=== PATIENT | female | born 1955 | race Caucasian/White ===

== ENCOUNTER → 2017-06-14 07:00 | Outpatient (REF) | payer MEDICARE, MEDICAID, SELFPAY ==
[2017-06-14 10:25] LABS: Anion Gap 10 (5-15); BUN 38 mg/dL (7-18); BUN/Creat Ratio 32.5 RATIO (10-20); Calcium,Total 8.7 mg/dL (8.5-10.1); Chloride 108 mmol/L (98-107); Creatinine, Serum 1.17 mg/dL (0.55-1.02); EST Glomerular Filtration Rate 50 mL/min (>60); Est Glom Filt Rate - Afr Amer 60 mL/min (>60); Glucose 113 mg/dL (70-110); Potassium 4.3 mmol/L (3.5-5.1); Sodium Level 141 mmol/L (136-145)
== END ==
LOC: OLS.WHLEAS 07:00
PROVIDERS: Visit Provider Internal Medicine Cardiovascular Disease
DX: I50.9 Heart failure, unspecified (principal); E11.9 Type 2 diabetes mellitus without complications; I10 Essential (primary) hypertension
CPT/HCPCS: 36415; 80048

== ENCOUNTER → 2017-07-20 05:00 | Outpatient (REF) | payer MEDICAID, SELFPAY ==
[2017-07-20 11:42] LABS: Anion Gap 9 (5-15); BUN 31 mg/dL (7-18); BUN/Creat Ratio 26.1 RATIO (10-20); Calcium,Total 8.8 mg/dL (8.5-10.1); Chloride 107 mmol/L (98-107); Creatinine, Serum 1.19 mg/dL (0.55-1.02); EST Glomerular Filtration Rate 49 mL/min (>60); Est Glom Filt Rate - Afr Amer 59 mL/min (>60); Glucose 128 mg/dL (70-110); Potassium 4.6 mmol/L (3.5-5.1); Sodium Level 141 mmol/L (136-145)
== END ==
LOC: OLS.WHLEAS 05:00
PROVIDERS: Visit Provider Internal Medicine Cardiovascular Disease
DX: E11.9 Type 2 diabetes mellitus without complications (principal); I67.9 Cerebrovascular disease, unspecified
CPT/HCPCS: 36415; 80048

== ENCOUNTER → 2017-09-15 05:00 | Outpatient (REF) | payer MEDICAID, SELFPAY ==
[2017-09-15 08:57] LABS: Absolute Lymphocyte Count 2.78 X10^3/ul (0.83-4.51); Absolute Neutrophil Count 7.8 X10^3/uL (2.0-7.7); Basophil# 0.05 X10^3/uL; Basophil% 0.4 % (0-1); Eosinophil# 0.65 X10^3/uL; Eosinophils% 5.4 % (0-5); Hematocrit 43.7 % (37-47); Hemoglobin 13.9 g/dl (12.0-15.0); Lymphocyte # 2.78 X10^3/ul (4.0); Lymphocyte % 23.1 % (19-41); Mean Corp Hgb Conc 31.8 g/gl (32-36); Mean Corpuscular Hgb 29.5 pg (27.0-32.0); Mean Corpuscular Volume 92.8 fL (81-99); Mean Platelet Vol. 10.3 fl (6.2-12.0); Monocyte# 0.69 X10^3/uL; Monocyte% 5.7 % (0-10); Neutrophil # 7.83 X10^3/uL (2.7-7.7); Neutrophil % 65.2 % (47-70); Platelet Count 354 K/mm3 (150-450); RBC Distribution Width CV 14.9 % (11.6-14.6); RBC Distribution Width SD 49.3 fl (35.1-43.9); Red Blood Count 4.71 M/mm3 (4.2-5.4)
[2017-09-15 09:01] LABS: POSITIVE COUNT NO; POSITIVE DIFFERENTIAL NO; POSITIVE MORPHOLOGY NO
[2017-09-15 09:08] LABS: ALB/GLOB Ratio 0.6 RATIO (0.9-2.4); AST(SGOT) 16 U/L (15-37); Alanine Aminotransfer ALT/SGPT 24 U/L (13-56); Albumin, Serum 2.8 g/dL (3.2-5.0); Alkaline Phosphatase 78 U/L (45-117); Anion Gap 10 (5-15); BUN 30 mg/dL (7-18); BUN/Creat Ratio 24.2 RATIO (10-20); Calcium,Total 9.1 mg/dL (8.5-10.1); Chloride 106 mmol/L (98-107); Creatinine, Serum 1.24 mg/dL (0.55-1.02); EST Glomerular Filtration Rate 47 mL/min (>60); Est Glom Filt Rate - Afr Amer 56 mL/min (>60); Globulin 4.8 g/dL (2.2-4.2); Glucose 192 mg/dL (74-106); Potassium 4.3 mmol/L (3.5-5.1); Protein, Total 7.6 g/dL (6.4-8.2); Sodium Level 141 mmol/L (136-145)
[2017-09-15 09:12] LABS: Hemoglobin A1c 7.7 % (4.2-6.3)
== END ==
LOC: OLS.WHLEAS 05:00
PROVIDERS: Visit Provider Family Medicine
DX: D64.9 Anemia, unspecified (principal); I11.0 Hypertensive heart disease with heart failure; I50.9 Heart failure, unspecified; E11.9 Type 2 diabetes mellitus without complications
CPT/HCPCS: 36415; 80053; 83036; 85025

== ENCOUNTER → 2017-10-15 05:00 | Outpatient (REF) | payer MEDICAID, SELFPAY ==
[2017-10-15 09:45] LABS: Anion Gap 8 (5-15); BUN 31 mg/dL (7-18); BUN/Creat Ratio 25.4 RATIO (10-20); Chloride 107 mmol/L (98-107); Creatinine, Serum 1.22 mg/dL (0.55-1.02); EST Glomerular Filtration Rate 48 mL/min (>60); Est Glom Filt Rate - Afr Amer 58 mL/min (>60); Glucose 94 mg/dL (74-106); Potassium 4.5 mmol/L (3.5-5.1); Sodium Level 142 mmol/L (136-145); Thyroid Stim Hormone (TSH) 3.84 uIU/mL (0.358-3.74)
== END ==
LOC: OLS.WHLEAS 05:00
PROVIDERS: Visit Provider Family Medicine
DX: I11.0 Hypertensive heart disease with heart failure (principal); I50.9 Heart failure, unspecified; E11.9 Type 2 diabetes mellitus without complications
CPT/HCPCS: 36415; 80048; 84443

== ENCOUNTER → 2017-11-08 07:25 | Outpatient (REF) | payer MEDICAID, SELFPAY ==
[2017-11-08 08:39] LABS: Anion Gap 8 (5-15); BUN 59 mg/dL (7-18); BUN/Creat Ratio 38.1 RATIO (10-20); Calcium,Total 9.2 mg/dL (8.5-10.1); Chloride 110 mmol/L (98-107); Creatinine, Serum 1.55 mg/dL (0.55-1.02); EST Glomerular Filtration Rate 36 mL/min (>60); Est Glom Filt Rate - Afr Amer 44 mL/min (>60); Glucose 198 mg/dL (74-106); Potassium 5.7 mmol/L (3.5-5.1); Sodium Level 137 mmol/L (136-145)
== END ==
LOC: OLS.WHLEAS 07:25
PROVIDERS: Visit Provider Internal Medicine Cardiovascular Disease
DX: I50.9 Heart failure, unspecified (principal)
CPT/HCPCS: 36415; 80048

== ENCOUNTER → 2017-11-10 05:00 | Outpatient (REF) | payer MEDICAID, SELFPAY ==
[2017-11-10 08:45] LABS: Anion Gap 9 (5-15); BUN 67 mg/dL (7-18); BUN/Creat Ratio 41.1 RATIO (10-20); Calcium,Total 8.8 mg/dL (8.5-10.1); Chloride 109 mmol/L (98-107); Creatinine, Serum 1.63 mg/dL (0.55-1.02); EST Glomerular Filtration Rate 34 mL/min (>60); Est Glom Filt Rate - Afr Amer 41 mL/min (>60); Glucose 201 mg/dL (74-106); Potassium 5.5 mmol/L (3.5-5.1); Sodium Level 137 mmol/L (136-145)
== END ==
LOC: OLS.WHLEAS 05:00
PROVIDERS: Visit Provider Internal Medicine Cardiovascular Disease
DX: I50.9 Heart failure, unspecified (principal)
CPT/HCPCS: 36415; 80048

== ENCOUNTER → 2017-11-12 05:00 | Outpatient (REF) | payer MEDICAID, SELFPAY ==
[2017-11-12 07:53] LABS: Anion Gap 6 (5-15); BUN 66 mg/dL (7-18); BUN/Creat Ratio 45.8 RATIO (10-20); Calcium,Total 8.9 mg/dL (8.5-10.1); Chloride 113 mmol/L (98-107); Creatinine, Serum 1.44 mg/dL (0.55-1.02); EST Glomerular Filtration Rate 39 mL/min (>60); Est Glom Filt Rate - Afr Amer 48 mL/min (>60); Glucose 159 mg/dL (74-106); Potassium 5.9 mmol/L (3.5-5.1); Sodium Level 139 mmol/L (136-145)
== END ==
LOC: OLS.WHLEAS 05:00
PROVIDERS: Visit Provider Family Medicine
DX: I10 Essential (primary) hypertension (principal); E78.5 Hyperlipidemia, unspecified; E11.9 Type 2 diabetes mellitus without complications
CPT/HCPCS: 36415; 80048

== ENCOUNTER → 2017-11-15 05:00 | Outpatient (REF) | payer MEDICAID, SELFPAY ==
[2017-11-15 08:08] LABS: Anion Gap 8 (5-15); BUN 44 mg/dL (7-18); BUN/Creat Ratio 36.4 RATIO (10-20); Chloride 112 mmol/L (98-107); Creatinine, Serum 1.21 mg/dL (0.55-1.02); EST Glomerular Filtration Rate 48 mL/min (>60); Est Glom Filt Rate - Afr Amer 58 mL/min (>60); Glucose 156 mg/dL (74-106); Potassium 4.9 mmol/L (3.5-5.1); Sodium Level 141 mmol/L (136-145)
== END ==
LOC: OLS.WHLEAS 05:00
PROVIDERS: Visit Provider Family Medicine
DX: I10 Essential (primary) hypertension (principal); E11.9 Type 2 diabetes mellitus without complications; E78.5 Hyperlipidemia, unspecified
CPT/HCPCS: 36415; 80048

== ENCOUNTER → 2017-11-22 05:00 | Outpatient (REF) | payer MEDICAID, SELFPAY ==
[2017-11-22 09:39] LABS: Anion Gap 9 (5-15); BUN 35 mg/dL (7-18); BUN/Creat Ratio 25.5 RATIO (10-20); Calcium,Total 8.4 mg/dL (8.5-10.1); Chloride 112 mmol/L (98-107); Creatinine, Serum 1.37 mg/dL (0.55-1.02); EST Glomerular Filtration Rate 42 mL/min (>60); Est Glom Filt Rate - Afr Amer 50 mL/min (>60); Glucose 247 mg/dL (74-106); Potassium 4.7 mmol/L (3.5-5.1); Sodium Level 140 mmol/L (136-145)
== END ==
LOC: OLS.WHLEAS 05:00
PROVIDERS: Visit Provider Internal Medicine Cardiovascular Disease
DX: I10 Essential (primary) hypertension (principal); E78.5 Hyperlipidemia, unspecified; E11.9 Type 2 diabetes mellitus without complications; E66.01 Morbid (severe) obesity due to excess calories
CPT/HCPCS: 36415; 80048

== ENCOUNTER → 2017-11-29 05:00 | Outpatient (REF) | payer MEDICAID, SELFPAY ==
[2017-11-29 09:56] LABS: Anion Gap 10 (5-15); BUN 32 mg/dL (7-18); BUN/Creat Ratio 28.3 RATIO (10-20); Calcium,Total 8.4 mg/dL (8.5-10.1); Chloride 108 mmol/L (98-107); Creatinine, Serum 1.13 mg/dL (0.55-1.02); EST Glomerular Filtration Rate 52 mL/min (>60); Est Glom Filt Rate - Afr Amer 63 mL/min (>60); Glucose 144 mg/dL (74-106); Potassium 4.3 mmol/L (3.5-5.1); Sodium Level 140 mmol/L (136-145)
== END ==
LOC: OLS.WHLEAS 05:00
PROVIDERS: Visit Provider Internal Medicine Cardiovascular Disease
DX: I11.0 Hypertensive heart disease with heart failure (principal); I50.9 Heart failure, unspecified; E87.5 Hyperkalemia
CPT/HCPCS: 36415; 80048

== ENCOUNTER → 2017-12-17 05:15 | Outpatient (REF) | payer MEDICAID, SELFPAY ==
[2017-12-20 08:54] LABS: Anion Gap 9 (5-15); BUN 29 mg/dL (7-18); BUN/Creat Ratio 22.5 RATIO (10-20); Calcium,Total 8.7 mg/dL (8.5-10.1); Chloride 110 mmol/L (98-107); Creatinine, Serum 1.29 mg/dL (0.55-1.02); EST Glomerular Filtration Rate 45 mL/min (>60); Est Glom Filt Rate - Afr Amer 55 mL/min (>60); Glucose 165 mg/dL (74-106); Potassium 4.3 mmol/L (3.5-5.1); Sodium Level 143 mmol/L (136-145)
== END ==
LOC: OLS.WHLEAS 05:15
PROVIDERS: Visit Provider Family Medicine
DX: I50.9 Heart failure, unspecified (principal)
CPT/HCPCS: 36415; 80048

== ENCOUNTER → 2018-01-25 05:00 | Outpatient (REF) | payer MEDICARE, MEDICAID, SELFPAY ==
[2018-01-25 08:06] LABS: Anion Gap 7 (5-15); BUN 29 mg/dL (7-18); BUN/Creat Ratio 21.8 RATIO (10-20); Calcium,Total 8.6 mg/dL (8.5-10.1); Chloride 109 mmol/L (98-107); Creatinine, Serum 1.33 mg/dL (0.55-1.02); EST Glomerular Filtration Rate 43 mL/min (>60); Est Glom Filt Rate - Afr Amer 52 mL/min (>60); Glucose 164 mg/dL (74-106); Potassium 4.1 mmol/L (3.5-5.1); Sodium Level 142 mmol/L (136-145)
== END ==
LOC: OLS.WHLEAS 05:00
PROVIDERS: Visit Provider Family Medicine
DX: I50.9 Heart failure, unspecified (principal)
CPT/HCPCS: 36415; 80048

== ENCOUNTER → 2018-02-09 06:45 | Outpatient (REF) | payer MEDICAID, SELFPAY ==
[2018-02-09 09:34] LABS: Anion Gap 7 (5-15); BUN 28 mg/dL (7-18); BUN/Creat Ratio 21.4 RATIO (10-20); Calcium,Total 8.5 mg/dL (8.5-10.1); Chloride 110 mmol/L (98-107); Creatinine, Serum 1.31 mg/dL (0.55-1.02); EST Glomerular Filtration Rate 44 mL/min (>60); Est Glom Filt Rate - Afr Amer 53 mL/min (>60); Glucose 94 mg/dL (74-106); Potassium 4.2 mmol/L (3.5-5.1); Sodium Level 143 mmol/L (136-145)
== END ==
LOC: OLS.WHLEAS 06:45
PROVIDERS: Visit Provider Family Medicine
DX: I50.9 Heart failure, unspecified (principal); E11.9 Type 2 diabetes mellitus without complications
CPT/HCPCS: 36415; 80048

== ENCOUNTER → 2018-03-16 05:00 | Outpatient (REF) | payer MEDICAID, SELFPAY ==
[2018-03-16 07:42] LABS: Absolute Lymphocyte Count 2.25 X10^3/ul (0.83-4.51); Absolute Neutrophil Count 6.2 X10^3/uL (2.0-7.7); Basophil# 0.06 X10^3/uL; Basophil% 0.6 % (0-1); Eosinophil# 0.38 X10^3/uL; Hemoglobin 12.4 g/dl (12.0-15.0); Lymphocyte # 2.25 X10^3/ul (4.0); Lymphocyte % 23.9 % (19-41); Mean Corpuscular Hgb 28.1 pg (27.0-32.0); Mean Corpuscular Volume 90.7 fL (81-99); Mean Platelet Vol. 10.2 fl (6.2-12.0); Monocyte# 0.56 X10^3/uL; Monocyte% 5.9 % (0-10); Neutrophil # 6.16 X10^3/uL (2.7-7.7); Neutrophil % 65.5 % (47-70); Platelet Count 371 K/mm3 (150-450); RBC Distribution Width CV 14.8 % (11.6-14.6); RBC Distribution Width SD 48.5 fl (35.1-43.9); Red Blood Count 4.41 M/mm3 (4.2-5.4); White Blood Count 9.4 K/mm3 (4.4-11.0)
[2018-03-16 07:47] LABS: POSITIVE COUNT NO; POSITIVE DIFFERENTIAL NO; POSITIVE MORPHOLOGY NO
[2018-03-16 07:50] LABS: ALB/GLOB Ratio 0.5 RATIO (0.9-2.4); AST(SGOT) 9 U/L (15-37); Alanine Aminotransfer ALT/SGPT 14 U/L (13-56); Albumin, Serum 2.1 g/dL (3.2-5.0); Alkaline Phosphatase 67 U/L (45-117); Anion Gap 7 (5-15); BUN 25 mg/dL (7-18); BUN/Creat Ratio 19.7 RATIO (10-20); Calcium,Total 8.5 mg/dL (8.5-10.1); Chloride 111 mmol/L (98-107); Cholesterol 212 mg/dL (200); Creatinine, Serum 1.27 mg/dL (0.55-1.02); EST Glomerular Filtration Rate 45 mL/min (>60); Est Glom Filt Rate - Afr Amer 55 mL/min (>60); Globulin 4.4 g/dL (2.2-4.2); Glucose 95 mg/dL (74-106); High Density Lipoprotein 42 mg/dL; Potassium 3.9 mmol/L (3.5-5.1); Protein, Total 6.5 g/dL (6.4-8.2); Sodium Level 143 mmol/L (136-145); Triglycerides 303 mg/dL; Very Low Density Lipoprotein 61 mg/dL (5-40)
[2018-03-16 07:58] LABS: Hemoglobin A1c 7.3 % (4.2-6.3)
== END ==
LOC: OLS.WHLEAS 05:00
PROVIDERS: Visit Provider Family Medicine
DX: I11.0 Hypertensive heart disease with heart failure (principal); I50.9 Heart failure, unspecified; E11.9 Type 2 diabetes mellitus without complications; E78.5 Hyperlipidemia, unspecified
CPT/HCPCS: 36415; 80053; 80061; 83036; 85025

== ENCOUNTER → 2018-03-23 05:00 | Outpatient (REF) | payer MEDICAID, SELFPAY ==
[2018-03-23 08:56] LABS: Anion Gap 10 (5-15); BUN 26 mg/dL (7-18); BUN/Creat Ratio 18.4 RATIO (10-20); Calcium,Total 8.7 mg/dL (8.5-10.1); Chloride 109 mmol/L (98-107); Creatinine, Serum 1.41 mg/dL (0.55-1.02); EST Glomerular Filtration Rate 40 mL/min (>60); Est Glom Filt Rate - Afr Amer 49 mL/min (>60); Glucose 84 mg/dL (74-106); Potassium 3.9 mmol/L (3.5-5.1); Sodium Level 144 mmol/L (136-145)
== END ==
LOC: OLS.WHLEAS 05:00
PROVIDERS: Visit Provider Family Medicine
DX: I50.9 Heart failure, unspecified (principal)
CPT/HCPCS: 36415; 80048

== ENCOUNTER → 2018-04-11 05:00 | Outpatient (REF) | payer MEDICAID, SELFPAY ==
[2018-04-11 08:09] LABS: Absolute Lymphocyte Count 2.25 X10^3/ul (0.83-4.51); Absolute Neutrophil Count 5.7 X10^3/uL (2.0-7.7); Basophil# 0.04 X10^3/uL; Basophil% 0.5 % (0-1); Eosinophil# 0.38 X10^3/uL; Eosinophils% 4.3 % (0-5); Hematocrit 39.4 % (37-47); Hemoglobin 12.1 g/dl (12.0-15.0); Lymphocyte # 2.25 X10^3/ul (4.0); Lymphocyte % 25.5 % (19-41); Mean Corp Hgb Conc 30.7 g/gl (32-36); Mean Corpuscular Hgb 27.4 pg (27.0-32.0); Mean Corpuscular Volume 89.3 fL (81-99); Mean Platelet Vol. 9.8 fl (6.2-12.0); Monocyte# 0.48 X10^3/uL; Monocyte% 5.4 % (0-10); Neutrophil # 5.65 X10^3/uL (2.7-7.7); Neutrophil % 64.2 % (47-70); Platelet Count 395 K/mm3 (150-450); RBC Distribution Width CV 15.7 % (11.6-14.6); RBC Distribution Width SD 50.5 fl (35.1-43.9); Red Blood Count 4.41 M/mm3 (4.2-5.4); White Blood Count 8.8 K/mm3 (4.4-11.0)
[2018-04-11 08:13] LABS: POSITIVE COUNT NO; POSITIVE DIFFERENTIAL NO; POSITIVE MORPHOLOGY NO
[2018-04-11 08:32] LABS: Anion Gap 9 (5-15); BUN 28 mg/dL (7-18); BUN/Creat Ratio 19.6 RATIO (10-20); Calcium,Total 8.4 mg/dL (8.5-10.1); Chloride 108 mmol/L (98-107); Creatinine, Serum 1.43 mg/dL (0.55-1.02); EST Glomerular Filtration Rate 40 mL/min (>60); Est Glom Filt Rate - Afr Amer 48 mL/min (>60); Glucose 107 mg/dL (74-106); Potassium 3.9 mmol/L (3.5-5.1); Sodium Level 141 mmol/L (136-145)
== END ==
LOC: OLS.WHLEAS 05:00
PROVIDERS: Visit Provider Family Medicine
DX: I11.0 Hypertensive heart disease with heart failure (principal); I50.9 Heart failure, unspecified; E11.9 Type 2 diabetes mellitus without complications
CPT/HCPCS: 36415; 80048; 85025

== ENCOUNTER → 2018-07-15 07:05 | Outpatient (REF) | payer MEDICAID, SELFPAY ==
[2018-07-15 08:49] LABS: ALB/GLOB Ratio 0.5 RATIO (0.9-2.4); AST(SGOT) 9 U/L (15-37); Alanine Aminotransfer ALT/SGPT 15 U/L (13-56); Albumin, Serum 2.4 g/dL (3.2-5.0); Alkaline Phosphatase 80 U/L (45-117); Anion Gap 7 (5-15); BUN 42 mg/dL (7-18); BUN/Creat Ratio 26.4 RATIO (10-20); Calcium,Total 8.5 mg/dL (8.5-10.1); Chloride 109 mmol/L (98-107); Creatinine, Serum 1.59 mg/dL (0.55-1.02); EST Glomerular Filtration Rate 35 mL/min (>60); Est Glom Filt Rate - Afr Amer 42 mL/min (>60); Globulin 4.4 g/dL (2.2-4.2); Glucose 127 mg/dL (74-106); Potassium 4.1 mmol/L (3.5-5.1); Protein, Total 6.8 g/dL (6.4-8.2); Sodium Level 141 mmol/L (136-145)
== END ==
LOC: OLS.WHLEAS 07:05
PROVIDERS: Visit Provider Family Medicine
DX: E11.9 Type 2 diabetes mellitus without complications (principal); I10 Essential (primary) hypertension; E03.9 Hypothyroidism, unspecified
CPT/HCPCS: 36415; 80053

== ENCOUNTER → 2018-07-26 22:30 | Outpatient (REF) | payer MEDICAID, SELFPAY ==
[2018-07-27 09:19] LABS: Microalbumin:Creatinine Ratio 5198.1 mg/g CRE (<30 mg/g CRE)
--- OUTSIDE RECORDS SUMMARY | 2018-09-30 23:00 | XMS RPT_ITS ---
:1955 Author Organization OHIP Support Name Relationship Address Phone D Unavailable Unavailable Unavailable Radha Ramesh Unavailable [address] + [place] [address] D Unavailable Unavailable Unavailable Radha Ramesh Unavailable [address] + [place] [address] D Unavailable Unavailable Unavailable Radha Ramesh Unavailable [address] + [place] [address] D Unavailable Unavailable Unavailable Radha Ramesh Unavailable [address] + [place] [address] D Unavailable Unavailable Unavailable Radha Ramesh Unavailable [address] + [place] [address] D Unavailable Unavailable Unavailable Radha Ramesh Unavailable [address] + [place] [address] D Unavailable Unavailable Unavailable Radha Ramesh Unavailable [address] + [place] [address] D Unavailable Unavailable Unavailable Radha Ramesh Unavailable [address] + [place] [address] D Unavailable Unavailable Unavailable Radha Ramesh Unavailable [address] + [place] [address] D Unavailable Unavailable Unavailable Radha Ramesh Unavailable [address] + [place] [address] D Unavailable Unavailable Unavailable Radha Ramesh Unavailable [address] + [place] [address] D Unavailable Unavailable Unavailable Radha Ramesh Unavailable [address] + [place] [address] D Unavailable Unavailable Unavailable Radha Ramesh Unavailable [address] + [place] [address] D Unavailable Unavailable Unavailable Radha Ramesh Unavailable [address] + [place] [address] D Unavailable Unavailable Unavailable Radha Ramesh Unavailable [address] + [place] [address] D Unavailable Unavailable Unavailable Radha Ramesh Unavailable [address] + [place] [address] Care Team Providers Name Role Phone TESTRAKE, BALTA Attending Unavailable TESTRAKE, BALTA Referring Unavailable TESTRAKE, BALTA Attending Unavailable TESTRAKE, BALTA Referring Unavailable TESTRAKE, BALTA Referring Unavailable TESTRAKE, BALTA Attending Unavailable TESTRAKE, BALTA Referring Unavailable TESTRAKE, BALTA Attending Unavailable TESTRAKE, BALTA Referring Unavailable KOSMORSKANA ESTRADA () Attending Unavailable EDISONSTEPHY Attending Unavailable EDISON, STEPHY E Referring Unavailable TESTRAKE, BALTA Attending Unavailable EDISON, STEPHY E Attending Unavailable Jimenez, Adrian Attending Unavailable Jimenez, Adrian Attending Unavailable Jimenez, Adrian Attending Unavailable Jimenez, Adrian Attending Unavailable Jimenez, Adrian Attending Unavailable Jimenez, Adrian Attending Unavailable Jimenez, Adrian Attending Unavailable [place], Stephy Attending Unavailable Edison, Stephy Attending Unavailable Jimenez, Adrian Attending Unavailable Jimenez, Adrian Attending Unavailable [place], Stephy Attending Unavailable [place], Stephy Attending Unavailable Jimenez, Adrian Attending Unavailable Jimenez, Adrian Attending Unavailable Jimenez, Adrian Attending Unavailable EDISON, STEPYH Attending Unavailable [facility] Referring Unavailable Jimenez, Adrian H Primary Care Unavailable EDISON, STEPHY Attending Unavailable EDISON, STEPHY Referring Unavailable Jimenez, Adrian H Primary Care Unavailable PROBLEMS PROBLEMS DATE TYPE CONDITION / CODE ATTENDING STATUS SOURCE 08/01/2018 Unknown I10 - Essential Adrian Jimenez Active [place] (primary) Community hypertension / Hospital I10(ICD-10) Repository 08/01/2018 Unknown E11.9 - Type 2 TonyAdrian Active [place] diabetes mellitus Community without Hospital complications / Repository E11.9(ICD-10) 08/01/2018 Unknown E03.9 - Adrian Jimenez Active [facility] Hypothyroidism, Community unspecified / Hospital E03.9(ICD-10) Repository 05/05/2018 Active Unknown / ANT, Active [facility] UNK(Unknown) KANA Balir (DO) Clinic Main [place] Repository 06/26/2018 Unknown I11.0 - JimenezAdrian Active [facility] Hypertensive heart Community disease with heart Hospital failure / Repository I11.0(ICD-10) 05/09/2018 Unknown I50.9 - Heart Adrian Jimenez Active [facility] failure, Community unspecified / Hospital I50.9(ICD-10) Repository 05/06/2018 Unknown E78.5 - Adrian Jimenez Active [place] Hyperlipidemia, Community unspecified / Hospital E78.5(ICD-10) Repository 05/02/2014 Active Peripheral vascular NA Active [place] disease, Clinic Main unspecified / [place] I73.9(ICD-10) Repository 12/09/2017 Active Nail disorder, NA Active [place] unspecified / Clinic Main L60.9(ICD-10) [place] Repository 02/16/2018 Unknown E87.5 - Stephy Hogan Active [place] Hyperkalemia / Community E87.5(ICD-10) Hospital Repository 01/14/2018 Unknown E66.1 - Stephy Hogan Active [place] Drug-induced Community obesity / Hospital E66.1(ICD-10) Repository 10/07/2017 Active Essential (primary) STEPHY HOGAN Active [facility] hypertension / E Clinic Other I10(ICD-10) [place] Repository 10/07/2017 Active Chronic diastolic STEPHY HOGAN Active [facility] (congestive) heart E Clinic Other failure / [place] I50.32(ICD-10) Repository 10/07/2017 Admitting Unknown / STEPHY HOGAN Active [facility](Unknown[facility] Repository 12/30/2017 Unknown D64.9 - Anemia, Adrian Jimenez Active [place] unspecified / Community D64.9(ICD-10) Hospital Repository PROCEDURES PROCEDURES No Procedure Records FoundRESULTS RESULTS MICROALB:CREAT Collected: 07/26/2018 Status: F Source: [place] RATIO,RANDOM UR 10:[address] [facility] REPOSITORY TYPE CODE TESTS RESULT OUT OF RANGE REFERENCE UNITS LAB L501.1200 NO RANGE EST. mg/dL Normal UR CREAT 106.00 LAB L502.0500 NO RANGE EST. mg/L Normal 5510.0 MICROALBUMIN ,UR LAB L502.0600 <30 mg/g CRE mg/g CRE High 5198.1 MALB:CREAT Performed By: #### L502.0250 #### [facility] [place], [address] COMPREHENSIVE METABOLIC Collected: 07/15/2018 Status: F Source: [place] HERNANDEZ 7:[address] [facility] REPOSITORY TYPE CODE TESTS RESULT OUT OF RANGE REFERENCE UNITS LAB L501.0100 74-106 mg/dL High GLU 127 Result Comment: Fasting Glucose result greater than or equal to 126 mg/dL suggests DIABETES MELLITUS per A.D.A. criteria. Please note revised GLUCOSE reference range effective 2017. LAB L501.1000 7-18 mg/dL High BUN 42 LAB L501.1100 0.55-1.02 mg/dL High CREAT,SERUM 1.59 Result Comment: The validity of the calculated GFR AND GFRAA in patients over 70 years has not been determined. Clinical correlation is essential. LAB L501.1110 >60 mL/min Low EST GFR 35 Result Comment: Non- GFR Calc LAB L501.1115 >60 mL/min Low EST GFR - AA 42 Result Comment: GFR Calc LAB L501.1300 10-20 RATIO High BUN/CRE 26.4 LAB L501.1500 6.4-8.2 g/dL T Normal PROT 6.8 LAB L501.1800 3.2-5.0 g/dL Low ALB 2.4 LAB L501.1950 2.2-4.2 g/dL High GLOB 4.4 LAB L501.2000 0.9-2.4 RATIO Low A/G 0.5 LAB L501.2200 8.5-10.1 mg/dL CA Normal 8.5 LAB L501.4100 15-37 U/L Low AST 9 LAB L501.4305 45-117 U/L Normal ALK P 80 LAB L501.4405 13-56 U/L Normal ALT 15 LAB L501.4600 0.20-1.00 mg/dL T Normal BILI 0.50 LAB L501.5300 136-145 mmol/L NA Normal 141 LAB L501.5600 3.5-5.1 mmol/L K Normal 4.1 LAB L501.5900 98-107 mmol/L High CL 109 LAB L501.6100 21.0-32.0 mmol/L Normal CO2 25.0 LAB L501.6200 5-15 Normal GAP 7 Performed By: #### L500.4050 #### [facility] [address] [place], [address] PROGRESS Observed: 06/28/2018 Status: COMPLETED Source: [place] 10:53 AM [facility] [place] REPOSITORY O ID: [id number] Author: Balta Bailey Service: (none) Author Type: Physician Type: Progress Notes Filed: 06/28/2018 9:29 PM Note Text: Follow up podiatric office visit for: Chief Complaint: This 63 year old who presents for follow up:left heel pain and painful toenail care Patient states the heel pain of left lower extremity is not as bad. Patient has been doing stretching which she states is helping. She states the pain in the left heel is 5-6/10 but improving. Patient also here for painful toenails and requesting debridement. Patient has swelling in her legs that she uses tubigrip for her swelling. Patient has lost 35 lbs in the past month. PAIN EVALUATION No data found. 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 - Endometrial hyperplasia without atypia, simple 11/2011 mirena in - Herpes simplex 1989 - Hypertonicity of bladder - Malignant neoplasm of upper-outer quadrant of female breast (HCC) completed radiation 05/14/09 - Pure hypercholesterolemia - Seborrhea scalp - Stroke (HCC) 2006 - Type II or unspecified type diabetes mellitus without mention of complication, not stated as uncontrolled - Unspecified essential hypertension - Vascular dementia, uncomplicated Current Outpatient Prescriptions: acetaminophen(TYLENOL 325 MG TAB) Take two(2) tablets every four hours as needed for pain or elevated temp. ammonium lactate (LAC-HYDRIN) 12 % lotion Apply to affected area once daily. Calcipotriene (DOVONEX) 0.005 % Soln For the scalp. Apply a small amount twice daily to the affected areas for scaling. cephALEXin (KEFLEX) 500 mg capsule Take 500 mg by mouth twice daily. clopidogrel bisulfate(PLAVIX 75 MG TAB) Take one(1) tablet daily. CPAP escitalopram (LEXAPRO) 10 mg tablet Take 10 mg by mouth once daily. GLUCAGON,HUMAN RECOMBINANT (GLUCAGON EMERGENCY INJECTION) 1 Vial by INJECTION(UNSPECIFIED PARENTERAL ROUTES) route as needed. guaiFENesin (MUCINEX) 600 mg 12 hr tablet Take 1,200 mg by mouth every 12 hours as needed. ketoconazole (NIZORAL) 2 % shampoo Apply to affected area once daily as needed. levonorgestrel (MIRENA) 20 mcg/24 hr IUD INSERTED IN THE OFFICE lisinopril (ZESTRIL, PRINIVIL) 40 mg tablet Take 0.5 tablets by mouth once daily. loperamide hcl(IMODIUM A-D 2 MG TAB) Take two(2) tablets followed by one(1) tablet after each loose stool as needed for diarrhea. mag hydrox/al hydrox/simeth(MYLANTA 200 MG-200 MG-20 MG/5 ML ORAL SUSP) as needed magnesium hydroxide ([id number])(EX-LAX MILK OF MAGNESIA 400 MG/5 ML ORAL SUSP) 30cc by mouth every day prn Menthol-Zinc Oxide (CALMOSEPTINE) 0.44-20.6 % Apply to affected area as needed. metformin hcl(GLUCOPHAGE 1,000 MG TAB) Take one(1) tablet daily. metoprolol tartrate(LOPRESSOR 100 MG TAB) Take one(1) tablet twice daily. Nitrofurantoin 50 mg cap Take by mouth once daily. nystatin-triamcinolone cream Apply 1 application to affected area twice daily. As needed for redness and irritation of the inframammary area, abdominal fold, and groin. May be restarted for return of skin irritation as needed. oxybutynin XL 10 mg 24 hr tablet Take 10 mg by mouth once daily. pravastatin sodium(PRAVACHOL 40 MG TAB) Take one(1) tablet daily at bedtime. Clobetasol Propionate 0.05 % external solution For scaling and redness of the scalp. Use once daily for 3 weeks, then use once daily on every Wednesday and Wednesday. furosemide (LASIX) 20 mg tablet Take 1 tablet by mouth twice daily. ON HOLD (Patient taking differently: Take 40 mg by mouth twice daily. ON HOLD ) insulin regular human, CONCENTRATED 500 UNIT/ML, (HUMULIN R) 500 unit/mL INJECTION Soln Inject subcutaneously. 0.20 cc (100 units) twice a day, before breakfast and supper No current facility-administered medications for this visit. 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 OBJECTIVE: NVSI unchanged from previous visit. Dermatological: Nails 1-5 b/l are b/l are painful, thick, dystrophic. Webspaces clean and dry 1-4 b/l. Skin appears well hydrated and supple. good color, texture, turgor. No open lesions present. No callosities present. Musculoskeletal/Orthopaedic: Patient has pain to palpation of left plantar medial calcaneal tubercle There is swelling to b/l lower extremity. No calf pain present. Plantarflexion, dorsiflexion, inversion and eversion is 5/5 ASSESSMENT: (M72.2) Plantar fasciitis of left foot (primary encounter diagnosis) (B35.1) Onychomycosis (M79.675) Pain in toe of left foot (M79.674) Pain in toe ofright foot PLAN: 1. History and physical examination completed today. 2. Discussed left heel pain. Pain has improved. Continue with stretching, icing x 10 minutes bid, nsaids Vs tylenol prn. If pain fails to subside, consider steroid injection. 3. Toenails 1-5 b/l debrided in length and thickness. 4. F/u in 3 months. Balta Bailey DPM PROGRESS Observed: 06/28/2018 Status: COMPLETED Source: [place] 10:46 AM [facility] [place] REPOSITORY HNO ID: [id number] Author: Brooklynn Pantoja RN Service: (none) Author Type: (none) Type: Progress Notes Filed: 06/28/2018 9:29 PM Note Text: AMB ROOMING INTAKE FLOWSHEET DATA Risk Screening Do you have concerns about personal safety or safety in the home?: No Patient is here for diabetic nail care. She is unable to recall her blood sugar this morning but reports that her last HgbA1c was 7.4 in March. CNOV Observed: 06/28/2018 Status: COMPLETED Source: [place] 10:40 AM [facility] REPOSITORY Office Visit (PODIWS) ALYSE ELLIS ([id number]) 1955 F [facility] Date Time Provider Department 06/28/18 10:40 AM BALTA BAILEY PODIWS During your visit today, we recorded the following information about you: Brooklynn Pantoja RN 06/28/2018 9:29 PM Signed [facility] ROOMING INTAKE FLOWSHEET DATA Risk Screening Do you have concerns about personal safety or safety in the home?: No Patient is here for diabetic nail care. She is unable to recall her blood sugar this morning but reports that her last HgbA1c was 7.4 in March. Balta Bailey DPM 06/28/2018 9:29 PM Signed Follow up podiatric office visit for: Chief Complaint: This 63 year old who presents for follow up:left heel pain and painful toenail care Patient states the heel pain of left lower extremity is not as bad. Patient has been doing stretching which she states is helping. She states the pain in the left heel is 5-6/10 but improving. Patient also here for painful toenails and requesting debridement. Patient has swelling in her legs that she uses tubigrip for her swelling. Patient has lost 35 lbs in the past month. PAIN EVALUATION No data found. 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 - Endometrial hyperplasia without atypia, simple 11/2011 mirena in - Herpes simplex 1989 - Hypertonicity of bladder - Malignant neoplasm of upper-outer quadrant of female breast (HCC) completed radiation 05/14/09 - Pure hypercholesterolemia - Seborrhea scalp - Stroke (HCC) 2006 - Type II or unspecified type diabetes mellitus without mention of complication, not stated as uncontrolled - Unspecified essential hypertension - Vascular dementia, uncomplicated Current Outpatient Prescriptions: acetaminophen(TYLENOL 325 MG TAB) Take two(2) tablets every four hours as needed for pain or elevated temp. ammonium lactate (LAC-HYDRIN) 12 % lotion Apply to affected area once daily. Calcipotriene (DOVONEX) 0.005 % Soln For the scalp. Apply a small amount twice daily to the affected areas for scaling. cephALEXin (KEFLEX) 500 mg capsule Take 500 mg by mouth twice daily. clopidogrel bisulfate(PLAVIX 75 MG TAB) Take one(1) tablet daily. CPAP escitalopram (LEXAPRO) 10 mg tablet Take 10 mg by mouth once daily. GLUCAGON,HUMAN RECOMBINANT (GLUCAGON EMERGENCY INJECTION) 1 Vial by INJECTION(UNSPECIFIED PARENTERAL ROUTES) route as needed. guaiFENesin (MUCINEX) 600 mg 12 hr tablet Take 1,200 mg by mouth every 12 hours as needed. ketoconazole (NIZORAL) 2 % shampoo Apply to affected area once daily as needed. levonorgestrel (MIRENA) 20 mcg/24 hr IUD INSERTED IN THE OFFICE lisinopril (ZESTRIL, PRINIVIL) 40 mg tablet Take 0.5 tablets by mouth once daily. loperamide hcl(IMODIUM A-D 2 MG TAB) Take two(2) tablets followed by one(1) tablet after each loose stool as needed for diarrhea. mag hydrox/al hydrox/simeth(MYLANTA 200 MG-200 MG-20 MG/5 ML ORAL SUSP) as needed magnesium hydroxide ([id number])(EX-LAX MILK OF MAGNESIA 400 MG/5 ML ORAL SUSP) 30cc by mouth every day prn Menthol-Zinc Oxide (CALMOSEPTINE) 0.44-20.6 % Apply to affected area as needed. metformin hcl(GLUCOPHAGE 1,000 MG TAB) Take one(1) tablet daily. metoprolol tartrate(LOPRESSOR 100 MG TAB) Take one(1) tablet twice daily. Nitrofurantoin 50 mg cap Take by mouth once daily. nystatin-triamcinolone cream Apply 1 application to affected area twice daily. As needed for redness and irritation of the inframammary area, abdominal fold, and groin. May be restarted for return of skin irritation as needed. oxybutynin XL 10 mg 24 hr tablet Take 10 mg by mouth once daily. pravastatin sodium(PRAVACHOL 40 MG TAB) Take one(1) tablet daily at bedtime. Clobetasol Propionate 0.05 % external solution For scaling and redness of the scalp. Use once daily for 3 weeks, then use once daily on every Wednesday and Wednesday. furosemide (LASIX) 20 mg tablet Take 1 tablet by mouth twice daily. ON HOLD (Patient taking differently: Take 40 mg by mouth twice daily. ON HOLD ) insulin regular human, CONCENTRATED 500 UNIT/ML, (HUMULIN R) 500 unit/mL INJECTION Soln Inject subcutaneously. 0.20 cc (100 units) twice a day, before breakfast and supper No current facility-administered medications for this visit. 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 OBJECTIVE: NVSI unchanged from previous visit. Dermatological: Nails 1-5 b/l are b/l are painful, thick, dystrophic. Webspaces clean and dry 1-4 b/l. Skin appears well hydrated and supple. good color, texture, turgor. No open lesions present. No callosities present. Musculoskeletal/Orthopaedic: Patient has pain to palpation of left plantar medial calcaneal tubercle There is swelling to b/l lower extremity. No calf pain present. Plantarflexion, dorsiflexion, inversion and eversion is 5/5 ASSESSMENT: (M72.2) Plantar fasciitis of left foot (primary encounter diagnosis) (B35.1) Onychomycosis (M79.675) Pain in toe of left foot (M79.674) Pain in toe ofright foot PLAN: 1. History and physical examination completed today. 2. Discussed left heel pain. Pain has improved. Continue with stretching, icing x 10 minutes bid, nsaids Vs tylenol prn. If pain fails to subside, consider steroid injection. 3. Toenails 1-5 b/l debrided in length and thickness. 4. F/u in 3 months. Balta Bailey DPM Referring Provider: SELF [200] Allergies As of Date: 06/28/2018 Noted Allergy Reaction CLONIDINE 11/14/2008 ERYTHROMYCIN 08/28/2009 LATEX 01/14/2009 2 - Rash PENICILLINS 07/18/2008 2 - Rash Date Reviewed: 06/28/2018 Reviewed by: Brooklynn Pantoja RN - Fully Assessed Reason for Visit: Diabetic Nail Care [Other] Primary Visit Diagnosis:Plantar fasciitis of left foot [M72.2] Other Visit Diagnoses:Onychomycosis [B35.1] Pain in toe of left foot [M79.675] Pain in toe of right foot [M79.674] Prescriptions as of 06/28/2018 Sig: TYLENOL 325 MG TABLET Take two(2) tablets every fou* AMMONIUM LACTATE 12 % LOTION Apply to affected area once * CALCIPOTRIENE 0.005 % SCALP S* For the scalp. Apply a small* CEPHALEXIN 500 MG CAPSULE Take 500 mg by mouth twice da* PLAVIX 75 MG TABLET Take one(1) tablet daily. CPAP ESCITALOPRAM 10 MG TABLET Take 10 mg by mouth once krishna* GLUCAGON EMERGENCY INJECTION 1 Vial by INJECTION(UNSPECIFI* GUAIFENESIN ER 600 MG TABLET,* Take 1,200 mg by mouth every * KETOCONAZOLE 2 % SHAMPOO Apply to affected area once * LEVONORGESTREL 20 MCG/24 HR (* INSERTED IN THE OFFICE LISINOPRIL 40 MG TABLET Take 0.5 tablets by mouth onc* IMODIUM A-D 2 MG TABLET Take two(2) tablets followed * MYLANTA 200 MG-200 MG-20 MG/5* as needed EX-LAX MILK OF MAGNESIA 400 M* 30cc by mouth every day prn MENTHOL 0.44 %-ZINC OXIDE 20.* Apply to affected area as ne* GLUCOPHAGE 1,000 MG TABLET Take one(1) tablet daily. LOPRESSOR 100 MG TABLET Take one(1) tablet twice krishna* NITROFURANTOIN 50 MG CAPSULE Take by mouth once daily. NYSTATIN-TRIAMCINOLONE 100,00* Apply 1 application to affect* OXYBUTYNIN CHLORIDE ER 10 MG * Take 10 mg by mouth once krishna* PRAVACHOL 40 MG TABLET Take one(1) tablet daily at b* CLOBETASOL 0.05 % SCALP SOLUT* For scaling and redness of th* FUROSEMIDE 20 MG TABLET Take 1 tablet by mouth twice * Patient taking differently: Take 40 mg by mouth twice leesa* INSULIN REGULAR HUMAN U-500C* Inject subcutaneously. 0.20 * Problem List As Of Date 06/28/2018 Noted Resolved CEREBROVASC DISEASE NEC [I67.89] INVALID FOR* ABNORMALITY OF GAIT [R26.9] INVALID FOR* URGE INCONTINENCE [N39.41] INVALID FOR* Abnormal mammogram, unspecified [R92.8] INVALID FOR*01/04/2017 CA IN SITU BREAST [D05.90] INVALID FOR* Malignant Neoplasm of Upper-Outer Quadrant of F*INVALID FOR* Hyperactivity of Bladder [N31.8] INVALID FOR* Diabetes mellitus [E11.9] INVALID FOR* Simple endometrial hyperplasia without atypia [*INVALID FOR* Small vessel disease (HCC) [I99.9] INVALID FOR* PAD (peripheral artery disease) (HCC) [I73.9] INVALID FOR* Type 2 diabetes mellitus with diabetic neuropat*INVALID FOR* Generalized edema [R60.1] INVALID FOR* Disposition: Return in about 3 months (around 09/26/2018) for nail care. Follow-up and Disposition History Recorded Encounter Status:Closed by BALTA BAILEY DPM on 06/28/18 PROGRESS Observed: 06/06/2018 Status: COMPLETED Source: [place] 3:59 PM [facility] REPOSITORY HNO ID: [id number] Author: Stephy Hogan Service: (none) Author Type: Physician Type: Progress Notes Filed: 06/06/2018 5:27 PM Note Text: PERTINENT CARDIAC HISTORY Abnormal ECG - lateral T wave inversion, resolved (?related to neuro, ischemia) HL DM HTN LOI - CPAP noncompliant CHF? - Diastolic Hyperkalemia on Aldactone CRF ADHERENCE TO GUIDELINES TOMI-I or ARB for HF with prior LVEF<40 (NQF 0081) - N/A ASA or Plavix for ASHD (NQF 0067) - met Beta taylor for ASHD with prior IL or prior LVEF<40 (NQF 0070) - N/A Beta taylor for HF with prior LVEF<40 (NQF 0083) - N/A TOMI-I or ARB for ASHD with DM or prior LVEF<40 (NQF 0066) - met Statin therapy for ASHD or FHL or DM - met BMI documented and plan if >25 (NQF 0421) - lifestyle recommendation form Tobacco use screening and referral (NQF 0028) - lifestyle recommendation form Recommendation for whole food, plant based diet - lifestyle recommendation form CLINICAL IMPRESSION/PLAN: Alyse Sanchez has stable ischemic heart disease. She's had no recent angina, but is relatively inactive. I asked her to call for any increased and shortness of breath or recurrent chest discomfort. Periodic stress testing may be helpful. [facility] pressure [facility] well-[facility] at the [place] [facility]. She is advised to restrict her salt intake, which will result in better management of her peripheral edema. Aldactone will not be restarted. Encouraged her to limit her calorie intake as well. We have had multiple conversations regarding morbidity associated with obesity and the risk of future episodes of cellulitis, DVT. I encouraged her to work with physical therapy and try to get some activity on a regular basis. Most recent serum albumin level was quite low at 2.1. Albumin to creatinine ratio will be ordered, protein supplements recommended and I will ask the [place] [facility] to check with Dr. Jimenez to see if he has any other suggestions about workup. She is obviously malnourished. I recommend that she be seen again in 8 months or as needed. Written and verbal health teaching given to patient, patient verbalizes understanding and agrees with treatment plan. DIAGNOSIS FOR VISIT: ASHD Hypertension CHF HISTORY OF PRESENT ILLNESS Alyse Sanchez returns for follow-up of multiple cardiac issues, as above. She has been noncompliant with salt restriction. She had considerable weight gain and has some had 30 pound weight loss since diuretic therapy was increased. She was unable to tolerate Aldactone due to hyperkalemia. She denies chest pain. She has been confined to wheelchair. She's had minimal headedness. Edema has been better over the last few weeks, but she still has significant edema and some weeping. She's had no palpitations, TIAs, amaurosis or claudication. ALLERGIES: ALLERGIES Allergen Reactions - Clonidine - Erythromycin - Latex Rash - Penicillins Rash CURRENT OUTPATIENT MEDICATIONS: cephALEXin (KEFLEX) 500 mg capsule Take 500 mg by mouth twice daily. lisinopril (ZESTRIL, PRINIVIL) 40 mg tablet Take 0.5 tablets by mouth once daily. furosemide (LASIX) 20 mg tablet Take 1 tablet by mouth twice daily. ON HOLD guaiFENesin (MUCINEX) 600 mg 12 hr tablet Take 1,200 mg by mouth every 12 hours as needed. ketoconazole (NIZORAL) 2 % shampoo Apply to affected area once daily as needed. ammonium lactate (LAC-HYDRIN) 12 % lotion Apply to affected area once daily. Menthol-Zinc Oxide (CALMOSEPTINE) 0.44-20.6 % Apply to affected area as needed. CPAP nystatin-triamcinolone cream Apply 1 application to affected area twice daily. As needed for redness and irritation of the inframammary area, abdominal fold, and groin. May be restarted for return of skin irritation as needed. escitalopram (LEXAPRO) 10 mg tablet Take 10 mg by mouth once daily. oxybutynin XL 10 mg 24 hr tablet Take 10 mg by mouth once daily. Calcipotriene (DOVONEX) 0.005 % Soln For the scalp. Apply a small amount twice daily to the affected areas for scaling. Clobetasol Propionate 0.05 % external solution For scaling and redness of the scalp. Use once daily for 3 weeks, then use once daily on every Wednesday and Wednesday. levonorgestrel (MIRENA) 20 mcg/24 hr IUD INSERTED IN THE OFFICE GLUCAGON,HUMAN RECOMBINANT (GLUCAGON EMERGENCY INJECTION) 1 Vial by INJECTION(UNSPECIFIED PARENTERAL ROUTES) route as needed. insulin regular human, CONCENTRATED 500 UNIT/ML, (HUMULIN R) 500 unit/mL INJECTION Soln Inject subcutaneously. 0.20 cc (100 units) twice a day, before breakfast and supper loperamide hcl(IMODIUM A-D 2 MG TAB) Take two(2) tablets followed by one(1) tablet after each loose stool as needed for diarrhea. mag hydrox/al hydrox/simeth(MYLANTA 200 MG-200 MG-20 MG/5 ML ORAL SUSP) as needed metformin hcl(GLUCOPHAGE 1,000 MG TAB) Take one(1) tablet daily. acetaminophen(TYLENOL 325 MG TAB) Take two(2) tablets every four hours as needed for pain or elevated temp. magnesium hydroxide ([id number])(EX-LAX MILK OF MAGNESIA 400 MG/5 ML ORAL SUSP) 30cc by mouth every day prn clopidogrel bisulfate(PLAVIX 75 MG TAB) Take one(1) tablet daily. metoprolol tartrate(LOPRESSOR 100 MG TAB) Take one(1) tablet twice daily. pravastatin sodium(PRAVACHOL 40 MG TAB) Take one(1) tablet daily at bedtime. Nitrofurantoin 50 mg cap Take by mouth once daily. PHYSICAL EXAMINATION: VITAL SIGNS: BP 145/80 Pulse 58 Ht 5' 5 (1.65m) Wt 367 lb (166.5kg) BMI 61.07 kg/(m2). Chest: Clear to auscultation. Trachea is midline. Air entry is equal. Cardiac: Regular rhythm. S1 and S2 are normal. PMI is nondisplaced. There are no murmurs, rubs or gallops. Carotids are brisk without bruits. JVP is less than 10 cm. Abdomen: Soft and nontender. There is a huge pannus with presacral edema There are no pulsatile masses or bruits. No liver enlargement. Bowel sounds are active. Extremities: 2 plus chronic pitting edema. Some drainage is apparent. Stockings on. Pulses are difficult to feel through the bandages and socks. Renal function is moderately impaired, but stable. Potassium was 3.9. LDL was 109. Albumin level was markedly low. Electronically Signed: Stephy Hogan MD June 06, 2018 3:59 PM CC: Adrian Jimenez MD CNOV Observed: 06/06/2018 Status: COMPLETED Source: [place] 3:15 PM [facility] REPOSITORY Office Visit (CAWSTR) ALYSE ELLIS ([id number]) 1955 F [facility] Date Time Provider Department 06/06/18 3:15 PM STEPHY HOGAN During your visit today, we recorded the following information about you: Pulse Blood pressure Weight Height 58/minute 145/80 166.5 kg 1.651 m Stephy Hogan MD 06/06/2018 5:27 PM Signed PERTINENT CARDIAC HISTORY Abnormal ECG - lateral T wave inversion, resolved (?related to neuro, ischemia) HL DM HTN LOI - CPAP noncompliant CHF? - Diastolic Hyperkalemia on Aldactone CRF ADHERENCE TO GUIDELINES TOMI-I or ARB for HF with prior LVEF<40 (NQF 0081) - N/A ASA or Plavix for ASHD (NQF 0067) - met Beta taylor for ASHD with prior IL or prior LVEF<40 (NQF 0070) - N/A Beta taylor for HF with prior LVEF<40 (NQF 0083) - N/A TOMI-I or ARB for ASHD with DM or prior LVEF<40 (NQF 0066) - met Statin therapy for ASHD or FHL or DM - met BMI documented and plan if >25 (NQF 0421) - lifestyle recommendation form Tobacco use screening and referral (NQF 0028) - lifestyle recommendation form Recommendation for whole food, plant based diet - lifestyle recommendation form CLINICAL IMPRESSION/PLAN: Alyse Sanchez has stable ischemic heart disease. She's had no recent angina, but is relatively inactive. I asked her to call for any increased and shortness of breath or recurrent chest discomfort. Periodic stress testing may be helpful. Blood pressure is well-controlled at the [place] [facility]. She is advised to restrict her salt intake, which will result in better management of her peripheral edema. Aldactone will not be restarted. Encouraged her to limit her calorie intake as well. We have had multiple conversations regarding morbidity associated with obesity and the risk of future episodes of cellulitis, DVT. I encouraged her to work with physical therapy and try to get some activity on a regular basis. Most recent serum albumin level was quite low at 2.1. Albumin to creatinine ratio will be ordered, protein supplements recommended and I will ask the [place] [facility] to check with Dr. Jimenez to see if he has any other suggestions about workup. She is obviously malnourished. I recommend that she be seen again in 8 months or as needed. Written and verbal health teaching given to patient, patient verbalizes understanding and agrees with treatment plan. DIAGNOSIS FOR VISIT: ASHD Hypertension CHF HISTORY OF PRESENT ILLNESS Alyse Sanchez returns for follow-up of multiple cardiac issues, as above. She has been noncompliant with salt restriction. She had considerable weight gain and has some had 30 pound weight loss since diuretic therapy was increased. She was unable to tolerate Aldactone due to hyperkalemia. She denies chest pain. She has been confined to wheelchair. She's had minimal headedness. Edema has been better over the last few weeks, but she still has significant edema and some weeping. She's had no palpitations, TIAs, amaurosis or claudication. ALLERGIES: ALLERGIES Allergen Reactions - Clonidine - Erythromycin - Latex Rash - Penicillins Rash CURRENT OUTPATIENT MEDICATIONS: cephALEXin (KEFLEX) 500 mg capsule Take 500 mg by mouth twice daily. lisinopril (ZESTRIL, PRINIVIL) 40 mg tablet Take 0.5 tablets by mouth once daily. furosemide (LASIX) 20 mg tablet Take 1 tablet by mouth twice daily. ON HOLD guaiFENesin (MUCINEX) 600 mg 12 hr tablet Take 1,200 mg by mouth every 12 hours as needed. ketoconazole (NIZORAL) 2 % shampoo Apply to affected area once daily as needed. ammonium lactate (LAC-HYDRIN) 12 % lotion Apply to affected area once daily. Menthol-Zinc Oxide (CALMOSEPTINE) 0.44-20.6 % Apply to affected area as needed. CPAP nystatin-triamcinolone cream Apply 1 application to affected area twice daily. As needed for redness and irritation of the inframammary area, abdominal fold, and groin. May be restarted for return of skin irritation as needed. escitalopram (LEXAPRO) 10 mg tablet Take 10 mg by mouth once daily. oxybutynin XL 10 mg 24 hr tablet Take 10 mg by mouth once daily. Calcipotriene (DOVONEX) 0.005 % Soln For the scalp. Apply a small amount twice daily to the affected areas for scaling. Clobetasol Propionate 0.05 % external solution For scaling and redness of the scalp. Use once daily for 3 weeks, then use once daily on every Wednesday and Wednesday. levonorgestrel (MIRENA) 20 mcg/24 hr IUD INSERTED IN THE OFFICE GLUCAGON,HUMAN RECOMBINANT (GLUCAGON EMERGENCY INJECTION) 1 Vial by INJECTION(UNSPECIFIED PARENTERAL ROUTES) route as needed. insulin regular human, CONCENTRATED 500 UNIT/ML, (HUMULIN R) 500 unit/mL INJECTION Soln Inject subcutaneously. 0.20 cc (100 units) twice a day, before breakfast and supper loperamide hcl(IMODIUM A-D 2 MG TAB) Take two(2) tablets followed by one(1) tablet after each loose stool as needed for diarrhea. mag hydrox/al hydrox/simeth(MYLANTA 200 MG-200 MG-20 MG/5 ML ORAL SUSP) as needed metformin hcl(GLUCOPHAGE 1,000 MG TAB) Take one(1) tablet daily. acetaminophen(TYLENOL 325 MG TAB) Take two(2) tablets every four hours as needed for pain or elevated temp. magnesium hydroxide ([id number])(EX-LAX MILK OF MAGNESIA 400 MG/5 ML ORAL SUSP) 30cc by mouth every day prn clopidogrel bisulfate(PLAVIX 75 MG TAB) Take one(1) tablet daily. metoprolol tartrate(LOPRESSOR 100 MG TAB) Take one(1) tablet twice daily. pravastatin sodium(PRAVACHOL 40 MG TAB) Take one(1) tablet daily at bedtime. Nitrofurantoin 50 mg cap Take by mouth once daily. PHYSICAL EXAMINATION: VITAL SIGNS: BP 145/80 Pulse 58 Ht 5' 5 (1.65m) Wt 367 lb (166.5kg) BMI 61.07 kg/(m2). Chest: Clear to auscultation. Trachea is midline. Air entry is equal. Cardiac: Regular rhythm. S1 and S2 are normal. PMI is nondisplaced. There are no murmurs, rubs or gallops. Carotids are brisk without bruits. JVP is less than 10 cm. Abdomen: Soft and nontender. There is a huge pannus with presacral edema There are no pulsatile masses or bruits. No liver enlargement. Bowel sounds are active. Extremities: 2 plus chronic pitting edema. Some drainage is apparent. Stockings on. Pulses are difficult to feel through the bandages and socks. Renal function is moderately impaired, but stable. Potassium was 3.9. LDL was 109. Albumin level was markedly low. Electronically Signed: Stephy Hogan MD June 06, 2018 3:59 PM CC: MD Stephy Fields MD 06/06/2018 3:59 PM Signed LIFESTYLE CHANGE A healthy lifestyle is the most important component of your overall treatment plan. Please give serious thought to the following areas and commit to making custodial changes. EAT A WHOLE FOOD, PLANT BASED DIET The nutrition your body gets is more important than the medicine you take. What matters most is the overall way you eat. We encourage you to minimize the use of animal products (which include dairy and all meats except fatty fish) and use whole, unprocessed plant foods to provide your protein, vitamins and other nutrients. We have a lot of information to share with you on this topic. This is not a diet. It is a way of life that you will keep with you. EXERCISE REGULARLY It is not important to spend hours in the gym, lifting weights and perspiring heavily. A total of 2-3 hours per week of aerobic (causing you to be moderately short of breath) exercise is sufficient to improve your health. Talk to us before you begin a new exercise program, if you have heart disease or experience shortness of breath or chest pain. REDUCE STRESS Chronic emotional and physical stress leads to disease. Ways of reducing stress include meditation, visualization, prayer, yoga and other forms of relaxation therapy. Consistency is the brown. Find a technique that works for you and do it every day. CULTIVATE RELATIONSHIPS Loneliness and isolation have a major negative impact on health. Seek out others who can love, care for and nurture you. Avoid hurtful relationships. MAINTAIN IDEAL BODY WEIGHT The best way to do this is to do all the things above. Our bodies naturally find the right weight if we keep moving and feed ourselves the right food. If your BMI is greater than 25, we strongly recommend a referral to a weight management program. Please speak to us or your family physician about available programs. AVOID NICOTINE IN ALL FORMS This includes all tobacco products, whether chewed, smoked, vaped, or rubbed on the skin. Smoking cessation programs, which can make use of tobacco substitutes, medications to suppress cravings and behavior management, are available. Please contact your family physician about programs in your area. Referring Provider: STEPHY HOGAN [[id number]] Allergies As of Date: 06/06/2018 Noted Allergy Reaction CLONIDINE 11/14/2008 ERYTHROMYCIN 08/28/2009 LATEX 01/14/2009 2 - Rash PENICILLINS 07/18/2008 2 - Rash Date Reviewed: 06/06/2018 Reviewed by: Jenn Eason MA - Fully Assessed Reason for Visit: Established Patient [175] Primary Visit Diagnosis:ASHD (arteriosclerotic heart disease) [I25.10] Other Visit Diagnoses:Hypertension, essential [I10] Chronic diastolic CHF (congestive heart failure) ([facility]) [I50.32] Prescriptions as of 06/06/2018 Sig: CEPHALEXIN 500 MG CAPSULE Take 500 mg by mouth twice da* LISINOPRIL 40 MG TABLET Take 0.5 tablets by mouth onc* FUROSEMIDE 20 MG TABLET Take 1 tablet by mouth twice * Patient taking differently: Take 40 mg by mouth twice leesa* GUAIFENESIN ER 600 MG TABLET,* Take 1,200 mg by mouth every * KETOCONAZOLE 2 % SHAMPOO Apply to affected area once * AMMONIUM LACTATE 12 % LOTION Apply to affected area once * MENTHOL 0.44 %-ZINC OXIDE 20.* Apply to affected area as ne* CPAP NYSTATIN-TRIAMCINOLONE 100,00* Apply 1 application to affect* ESCITALOPRAM 10 MG TABLET Take 10 mg by mouth once krishna* OXYBUTYNIN CHLORIDE ER 10 MG * Take 10 mg by mouth once krishna* CALCIPOTRIENE 0.005 % SCALP S* For the scalp. Apply a small* CLOBETASOL 0.05 % SCALP SOLUT* For scaling and redness of th* LEVONORGESTREL 20 MCG/24 HR (* INSERTED IN THE OFFICE GLUCAGON EMERGENCY INJECTION 1 Vial by INJECTION(UNSPECIFI* INSULIN REGULAR HUMAN U-500C* Inject subcutaneously. 0.20 * IMODIUM A-D 2 MG TABLET Take two(2) tablets followed * MYLANTA 200 MG-200 MG-20 MG/5* as needed GLUCOPHAGE 1,000 MG TABLET Take one(1) tablet daily. TYLENOL 325 MG TABLET Take two(2) tablets every fou* EX-LAX MILK OF MAGNESIA 400 M* 30cc by mouth every day prn PLAVIX 75 MG TABLET Take one(1) tablet daily. LOPRESSOR 100 MG TABLET Take one(1) tablet twice krishna* PRAVACHOL 40 MG TABLET Take one(1) tablet daily at b* NITROFURANTOIN 50 MG CAPSULE Take by mouth once daily. Problem List As Of Date 06/06/2018 Noted Resolved CEREBROVASC DISEASE NEC [I67.89] INVALID FOR* ABNORMALITY OF GAIT [R26.9] INVALID FOR* URGE INCONTINENCE [N39.41] INVALID FOR* Abnormal mammogram, unspecified [R92.8] INVALID FOR*01/04/2017 CA IN SITU BREAST [D05.90] INVALID FOR* Malignant Neoplasm of Upper-Outer Quadrant of F*INVALID FOR* Hyperactivity of Bladder [N31.8] INVALID FOR* Diabetes mellitus [E11.9] INVALID FOR* Simple endometrial hyperplasia without atypia [*INVALID FOR* Small vessel disease (HCC) [I99.9] INVALID FOR* PAD (peripheral artery disease) (HCC) [I73.9] INVALID FOR* Type 2 diabetes mellitus with diabetic neuropat*INVALID FOR* Generalized edema [R60.1] INVALID FOR* Other instructions from your clinician: LIFESTYLE CHANGE A healthy lifestyle is the most important component of your overall treatment plan. Please give serious thought to the following areas and commit to making custodial changes. EAT A WHOLE FOOD, PLANT BASED DIET The nutrition your body gets is more important than the medicine you take. What matters most is the overall way you eat. We encourage you to minimize the use of animal products (which include dairy and all meats except fatty fish) and use whole, unprocessed plant foods to provide your protein, vitamins and other nutrients. We have a lot of information to share with you on this topic. This is not a diet. It is a way of life that you will keep with you. EXERCISE REGULARLY It is not important to spend hours in the gym, lifting weights and perspiring heavily. A total of 2-3 hours per week of aerobic (causing you to be moderately short of breath) exercise is sufficient to improve your health. Talk to us before you begin a new exercise program, if you have heart disease or experience shortness of breath or chest pain. REDUCE STRESS Chronic emotional and physical stress leads to disease. Ways of reducing stress include meditation, visualization, prayer, yoga and other forms of relaxation therapy. Consistency is the brown. Find a technique that works for you and do it every day. CULTIVATE RELATIONSHIPS Loneliness and isolation have a major negative impact on health. Seek out others who can love, care for and nurture you. Avoid hurtful relationships. MAINTAIN IDEAL BODY WEIGHT The best way to do this is to do all the things above. Our bodies naturally find the right weight if we keep moving and feed ourselves the right food. If your BMI is greater than 25, we strongly recommend a referral to a weight management program. Please speak to us or your family physician about available programs. AVOID NICOTINE IN ALL FORMS This includes all tobacco products, whether chewed, smoked, vaped, or rubbed on the skin. Smoking cessation programs, which can make use of tobacco substitutes, medications to suppress cravings and behavior management, are available. Please contact your family physician about programs in your area. Follow-up and Disposition History Recorded Encounter Status:Closed by STEPHY HOGAN MD on 06/06/18 PROGRESS Observed: 04/13/2018 Status: COMPLETED Source: [place] 1:10 PM [facility] REPOSITORY O ID: [id number] Author: Balta Bailey Service: (none) Author Type: Physician Type: Progress Notes Filed: 04/14/2018 2:00 PM Note Text: Follow up podiatric office visit for: Chief Complaint: This 63 year old who presents for evaluation of right 2nd toenail. Patient states that last Wednesday, she bumped her right 2nd toe against wall resulting in loss of toenail. She feels a weird sensation to toe but she denies any major pain. She has been having nursing staff apply neosporin and band aid. Patient is on keflex for cellulitis of legs. Since being on keflx, the swelling and little redness of right 2nd toe has improved. She does complain of left heel pain. She has pain to left posterior heel. She declines pain to arch. She only has pain to left posterior heel. She is concerned that the toes on opposite foot are turning cold Lastly, she is here for diabetic foot exam and is requesting nail care. 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 lisinopril (ZESTRIL, PRINIVIL) 40 mg tablet Take 0.5 tablets by mouth once daily. furosemide (LASIX) 20 mg tablet Take 1 tablet by mouth twice daily. ON HOLD (Patient taking differently: Take 40 mg by mouth twice daily. ON HOLD ) guaiFENesin (MUCINEX) 600 mg 12 hr tablet Take 1,200 mg by mouth every 12 hours as needed. ketoconazole (NIZORAL) 2 % shampoo Apply to affected area once daily as needed. ammonium lactate (LAC-HYDRIN) 12 % lotion Apply to affected area once daily. Menthol-Zinc Oxide (CALMOSEPTINE) 0.44-20.6 % Apply to affected area as needed. CPAP nystatin-triamcinolone cream Apply 1 application to affected area twice daily. As needed for redness and irritation of the inframammary area, abdominal fold, and groin. May be restarted for return of skin irritation as needed. escitalopram (LEXAPRO) 10 mg tablet Take 10 mg by mouth once daily. oxybutynin XL 10 mg 24 hr tablet Take 10 mg by mouth once daily. Calcipotriene (DOVONEX) 0.005 % Soln For the scalp. Apply a small amount twice daily to the affected areas for scaling. Clobetasol Propionate 0.05 % external solution For scaling and redness of the scalp. Use once daily for 3 weeks, then use once daily on every Wednesday and Wednesday. levonorgestrel (MIRENA) 20 mcg/24 hr IUD INSERTED IN THE OFFICE GLUCAGON,HUMAN RECOMBINANT (GLUCAGON EMERGENCY INJECTION) 1 Vial by INJECTION(UNSPECIFIED PARENTERAL ROUTES) route as needed. insulin regular human, CONCENTRATED 500 UNIT/ML, (HUMULIN R) 500 unit/mL INJECTION Soln Inject subcutaneously. 0.20 cc (100 units) twice a day, before breakfast and supper loperamide hcl(IMODIUM A-D 2 MG TAB) Take two(2) tablets followed by one(1) tablet after each loose stool as needed for diarrhea. mag hydrox/al hydrox/simeth(MYLANTA 200 MG-200 MG-20 MG/5 ML ORAL SUSP) as needed metformin hcl(GLUCOPHAGE 1,000 MG TAB) Take one(1) tablet daily. magnesium hydroxide ([id number])(EX-LAX MILK OF MAGNESIA 400 MG/5 ML ORAL SUSP) 30cc by mouth every day prn clopidogrel bisulfate(PLAVIX 75 MG TAB) Take one(1) tablet daily. metoprolol tartrate(LOPRESSOR 100 MG TAB) Take one(1) tablet twice daily. pravastatin sodium(PRAVACHOL 40 MG TAB) Take one(1) tablet daily at bedtime. Nitrofurantoin 50 mg cap Take by mouth once daily. acetaminophen(TYLENOL 325 MG TAB) Take two(2) tablets every four hours as needed for pain or elevated temp. No current facility-administered medications for this visit. 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 OBJECTIVE: NVSI unchanged from previous visit. Dermatological: Nails 1-5 left, 1,3-5 right and thick, discolored and painful. Right 2nd toenail has been completely avulsed. Webspaces clean and dry 1-4 b/l. Skin appears well hydrated and supple. good color, texture, turgor. No open lesions present. No callosities present. Musculoskeletal/Orthopaedic: Patient has pain to palpation of left plantar medial calcaneal tubercle - tinel b/l Plantarflexion, dorsiflexion, inversion and eversion is 5/5 ASSESSMENT: (B35.1) Onychomycosis (primary encounter diagnosis)* (M79.675) Pain in toe of left foot (M79.674) Pain in toe of right foot (M72.2) Plantar fasciitis of left foot Open wound of toe PLAN: 1. History and physical examination completed today. 2. Discussed avulsion of right 2nd toe. It appears stable and free of any drainage. Very little redness is present. Recommend continued topical antibiotic cream. Recommend she continued keflex qid x 3 more days. Any issues, she is to contact the office. Offered xray of right foot but she declined 3. Toenails 1-5 left, 1,3-5 right debrided in length and thickness 4. Discussed left heel pain. Will prescribe votaren gel. Will get xrays of left foot. Will have her do stretching. If pain fails to improve, consider injection. Balta Bailey DPM PROGRESS Observed: 04/13/2018 Status: COMPLETED Source: [place] 1:02 PM [facility] REPOSITORY [facility] ID: [id number] Author: Nichole Pineda MA Service: (none) Author Type: (none) Type: Progress Notes Filed: 04/14/2018 2:00 PM Note Text: AMB ROOMING INTAKE FLOWSHEET DATA Risk Screening Do you have concerns about personal safety or safety in the home?: No Pain Pain Score: 3/10 Pain Location: Heel-Left Description: Dull, Sore Duration Amount of Time: 6 Duration Units: Days Frequency: Continuous Intervention: Medication Patient is here injury to R 2nd toenail. Message is in My chart from patient sister. 3 toes on the L foot feel cold. L heel does hurt constant for about a yr now. Patient would nail care. Patient is diabetic Patient reports home blood glucose reading at 137 mg/dL this am Nichole Laughlinpetrona [place] [facility] Observed: 04/13/2018 Status: COMPLETED Source: [place] 12:40 PM [facility] REPOSITORY Office Visit (PODIWS) ALYSE ELLIS ([id number]) 1955 F [facility] Date Time Provider Department 04/13/18 12:40 PM BALTA BAILEY PODIWS During your visit today, we recorded the following information about you: Nichole Pineda MA 04/14/2018 2:00 PM Signed AMB ROOMING INTAKE FLOWSHEET DATA Risk Screening Do you have concerns about personal safety or safety in the home?: No Pain Pain Score: 3/10 Pain Location: Heel-Left Description: Dull, Sore Duration Amount of Time: 6 Duration Units: Days Frequency: Continuous Intervention: Medication Patient is here injury to R 2nd toenail. Message is in My chart from patient sister. 3 toes on the L foot feel cold. L heel does hurt constant for about a yr now. Patient would nail care. Patient is diabetic Patient reports home blood glucose reading at 137 mg/dL this am Nichole Bailey DPM 04/14/2018 2:00 PM Signed Follow up podiatric office visit for: Chief Complaint: This 63 year old who presents for evaluation of right 2nd toenail. Patient states that last Wednesday, she bumped her right 2nd toe against wall resulting in loss of toenail. She feels a weird sensation to toe but she denies any major pain. She has been having nursing staff apply neosporin and band aid. Patient is on keflex for cellulitis of legs. Since being on keflx, the swelling and little redness of right 2nd toe has improved. She does complain of left heel pain. She has pain to left posterior heel. She declines pain to arch. She only has pain to left posterior heel. She is concerned that the toes on opposite foot are turning cold Lastly, she is here for diabetic foot exam and is requesting nail care. 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 lisinopril (ZESTRIL, PRINIVIL) 40 mg tablet Take 0.5 tablets by mouth once daily. furosemide (LASIX) 20 mg tablet Take 1 tablet by mouth twice daily. ON HOLD (Patient taking differently: Take 40 mg by mouth twice daily. ON HOLD ) guaiFENesin (MUCINEX) 600 mg 12 hr tablet Take 1,200 mg by mouth every 12 hours as needed. ketoconazole (NIZORAL) 2 % shampoo Apply to affected area once daily as needed. ammonium lactate (LAC-HYDRIN) 12 % lotion Apply to affected area once daily. Menthol-Zinc Oxide (CALMOSEPTINE) 0.44-20.6 % Apply to affected area as needed. CPAP nystatin-triamcinolone cream Apply 1 application to affected area twice daily. As needed for redness and irritation of the inframammary area, abdominal fold, and groin. May be restarted for return of skin irritation as needed. escitalopram (LEXAPRO) 10 mg tablet Take 10 mg by mouth once daily. oxybutynin XL 10 mg 24 hr tablet Take 10 mg by mouth once daily. Calcipotriene (DOVONEX) 0.005 % Soln For the scalp. Apply a small amount twice daily to the affected areas for scaling. Clobetasol Propionate 0.05 % external solution For scaling and redness of the scalp. Use once daily for 3 weeks, then use once daily on every Wednesday and Wednesday. levonorgestrel (MIRENA) 20 mcg/24 hr IUD INSERTED IN THE OFFICE GLUCAGON,HUMAN RECOMBINANT (GLUCAGON EMERGENCY INJECTION) 1 Vial by INJECTION(UNSPECIFIED PARENTERAL ROUTES) route as needed. insulin regular human, CONCENTRATED 500 UNIT/ML, (HUMULIN R) 500 unit/mL INJECTION Soln Inject subcutaneously. 0.20 cc (100 units) twice a day, before breakfast and supper loperamide hcl(IMODIUM A-D 2 MG TAB) Take two(2) tablets followed by one(1) tablet after each loose stool as needed for diarrhea. mag hydrox/al hydrox/simeth(MYLANTA 200 MG-200 MG-20 MG/5 ML ORAL SUSP) as needed metformin hcl(GLUCOPHAGE 1,000 MG TAB) Take one(1) tablet daily. magnesium hydroxide ([id number])(EX-LAX MILK OF MAGNESIA 400 MG/5 ML ORAL SUSP) 30cc by mouth every day prn clopidogrel bisulfate(PLAVIX 75 MG TAB) Take one(1) tablet daily. metoprolol tartrate(LOPRESSOR 100 MG TAB) Take one(1) tablet twice daily. pravastatin sodium(PRAVACHOL 40 MG TAB) Take one(1) tablet daily at bedtime. Nitrofurantoin 50 mg cap Take by mouth once daily. acetaminophen(TYLENOL 325 MG TAB) Take two(2) tablets every four hours as needed for pain or elevated temp. No current facility-administered medications for this visit. 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 OBJECTIVE: NVSI unchanged from previous visit. Dermatological: Nails 1-5 left, 1,3-5 right and thick, discolored and painful. Right 2nd toenail has been completely avulsed. Webspaces clean and dry 1-4 b/l. Skin appears well hydrated and supple. good color, texture, turgor. No open lesions present. No callosities present. Musculoskeletal/Orthopaedic: Patient has pain to palpation of left plantar medial calcaneal tubercle - tinel b/l Plantarflexion, dorsiflexion, inversion and eversion is 5/5 ASSESSMENT: (B35.1) Onychomycosis (primary encounter diagnosis)* (M79.675) Pain in toe of left foot (M79.674) Pain in toe of right foot (M72.2) Plantar fasciitis of left foot Open wound of toe PLAN: 1. History and physical examination completed today. 2. Discussed avulsion of right 2nd toe. It appears stable and free of any drainage. Very little redness is present. Recommend continued topical antibiotic cream. Recommend she continued keflex qid x 3 more days. Any issues, she is to contact the office. Offered xray of right foot but she declined 3. Toenails 1-5 left, 1,3-5 right debrided in length and thickness 4. Discussed left heel pain. Will prescribe votaren gel. Will get xrays of left foot. Will have her do stretching. If pain fails to improve, consider injection. Balta Bailey DPM Referring Provider: BALTA BAILEY [[id number]] Allergies As of Date: 04/13/2018 Noted Allergy Reaction CLONIDINE 11/14/2008 ERYTHROMYCIN 08/28/2009 LATEX 01/14/2009 2 - Rash PENICILLINS 07/18/2008 2 - Rash Date Reviewed: 04/13/2018 Reviewed by: Nichole Pineda MA - Fully Assessed Reason for Visit: Toe Pain (Toe) [761] Primary Visit Diagnosis:Onychomycosis [B35.1] Other Visit Diagnoses:Pain in toe of left foot [M79.675] Pain in toe of right foot [M79.674] Plantar fasciitis of left foot [M72.2] Order(s):XR FOOT GENERAL 3V AP/LAT/OBL LT [[id number]] Order #: [id number] FUTURE Prescriptions as of 04/13/2018 Sig: CEPHALEXIN 500 MG CAPSULE Take 500 mg by mouth twice da* LISINOPRIL 40 MG TABLET Take 0.5 tablets by mouth onc* FUROSEMIDE 20 MG TABLET Take 1 tablet by mouth twice * Patient taking differently: Take 40 mg by mouth twice leesa* GUAIFENESIN ER 600 MG TABLET,* Take 1,200 mg by mouth every * KETOCONAZOLE 2 % SHAMPOO Apply to affected area once * AMMONIUM LACTATE 12 % LOTION Apply to affected area once * MENTHOL 0.44 %-ZINC OXIDE 20.* Apply to affected area as ne* CPAP NYSTATIN-TRIAMCINOLONE 100,00* Apply 1 application to affect* ESCITALOPRAM 10 MG TABLET Take 10 mg by mouth once krishna* OXYBUTYNIN CHLORIDE ER 10 MG * Take 10 mg by mouth once krishna* CALCIPOTRIENE 0.005 % SCALP S* For the scalp. Apply a small* CLOBETASOL 0.05 % SCALP SOLUT* For scaling and redness of th* LEVONORGESTREL 20 MCG/24 HR (* INSERTED IN THE OFFICE GLUCAGON EMERGENCY INJECTION 1 Vial by INJECTION(UNSPECIFI* INSULIN REGULAR HUMAN U-500C* Inject subcutaneously. 0.20 * IMODIUM A-D 2 MG TABLET Take two(2) tablets followed * MYLANTA 200 MG-200 MG-20 MG/5* as needed GLUCOPHAGE 1,000 MG TABLET Take one(1) tablet daily. EX-LAX MILK OF MAGNESIA 400 M* 30cc by mouth every day prn PLAVIX 75 MG TABLET Take one(1) tablet daily. LOPRESSOR 100 MG TABLET Take one(1) tablet twice krishna* PRAVACHOL 40 MG TABLET Take one(1) tablet daily at b* NITROFURANTOIN 50 MG CAPSULE Take by mouth once daily. TYLENOL 325 MG TABLET Take two(2) tablets every fou* Problem List As Of Date 04/13/2018 Noted Resolved CEREBROVASC DISEASE NEC [I67.89] INVALID FOR* ABNORMALITY OF GAIT [R26.9] INVALID FOR* URGE INCONTINENCE [N39.41] INVALID FOR* Abnormal mammogram, unspecified [R92.8] INVALID FOR*01/04/2017 CA IN SITU BREAST [D05.90] INVALID FOR* Malignant Neoplasm of Upper-Outer Quadrant of F*INVALID FOR* Hyperactivity of Bladder [N31.8] INVALID FOR* Diabetes mellitus [E11.9] INVALID FOR* Simple endometrial hyperplasia without atypia [*INVALID FOR* Small vessel disease (HCC) [I99.9] INVALID FOR* PAD (peripheral artery disease) (HCC) [I73.9] INVALID FOR* Type 2 diabetes mellitus with diabetic neuropat*INVALID FOR* Generalized edema [R60.1] INVALID FOR* Disposition: Return in about 2 weeks (around 04/27/2018) for R 2nd toe. Follow-up and Disposition History Recorded Encounter Status:Closed by BALTA BAILEY DPM on 04/14/18 CBC W/DIFF, AUTOMATED Collected: 04/11/2018 Status: F Source: [place] 6:[address] [facility] REPOSITORY Order Comment: 500-2 TYPE CODE TESTS RESULT OUT OF RANGE REFERENCE UNITS LAB L100.1000 4.4-11.0 K/mm3 Normal WBC 8.8 LAB L100.1200 4.2-5.4 M/mm3 Normal RBC 4.41 LAB L100.1300 12.0-15.0 g/dl Normal HGB 12.1 LAB L100.1400 37-47 % Normal HCT 39.4 LAB L100.1500 81-99 fL Normal MCV 89.3 LAB L100.1600 27.0-32.0 pg Normal MCH 27.4 LAB L100.1700 32-36 g/gl Low MCHC 30.7 LAB L100.1810 11.6-14.6 % High RDW CV 15.7 LAB L100.1820 35.1-43.9 fl High RDW SD 50.5 LAB L100.1900 150-450 K/mm3 Normal PLT 395 LAB L100.2000 6.2-12.0 fl Normal MPV 9.8 LAB L100.2100 47-70 % Normal NEUT% 64.2 LAB L100.2200 19-41 % Normal LY% 25.5 LAB L100.2300 0-10 % Normal MONO% 5.4 LAB L100.2400 0-5 % Normal EO% 4.3 LAB L100.2500 0-1 % Normal BASO% 0.5 LAB L100.2550 0.0-0.9 % Normal IM GRAN % 0.100 Result Comment: IG% - Immature Granulocytes (promyelocytes, myelocytes and metamyelocytes) > 1% indicates that a LEFT SHIFT is Present. LAB L100.2620 2.0-7.7 X10 3/uL Normal Absolute Neut 5.7 LAB L100.2720 0.83-4.51 X10 3/ul Normal Absolute Lymph 2.25 Performed By: #### L100.0100 #### [facility] [address] [place], [address] BASIC METABOLIC Collected: 04/11/2018 Status: F Source: [place] PROFILE (BMP) 6:[address] [facility] REPOSITORY Order Comment: 500-2 TYPE CODE TESTS RESULT OUT OF RANGE REFERENCE UNITS LAB L501.0100 74-106 mg/dL High GLU 107 Result Comment: Fasting Glucose result from 100 to 125 mg/dL suggests IMPAIRED HOMEOSTASIS per A.D.A. criteria. Please note revised GLUCOSE reference range effective 2017. LAB L501.1000 7-18 mg/dL High BUN 28 LAB L501.1100 0.55-1.02 mg/dL High CREAT,SERUM 1.43 Result Comment: The validity of the calculated GFR AND GFRAA in patients over 70 years has not been determined. Clinical correlation is essential. LAB L501.1110 >60 mL/min Low EST GFR 40 Result Comment: Non- GFR Calc LAB L501.1115 >60 mL/min Low EST GFR - AA 48 Result Comment: GFR Calc LAB L501.1300 10-20 RATIO Normal BUN/CRE 19.6 LAB L501.2200 8.5-10.1 mg/dL Low CA 8.4 LAB L501.5300 136-145 mmol/L NA Normal 141 LAB L501.5600 3.5-5.1 mmol/L K Normal 3.9 LAB L501.5900 98-107 mmol/L High CL 108 LAB L501.6100 21.0-32.0 mmol/L Normal CO2 24.0 LAB L501.6200 5-15 Normal GAP 9 Performed By: #### L500.2500 #### [facility] [address] [place], [address] BASIC METABOLIC Collected: 03/23/2018 Status: F Source: [place] PROFILE (BMP) 6:[address] [facility] REPOSITORY Order Comment: ROOM 500 TYPE CODE TESTS RESULT OUT OF RANGE REFERENCE UNITS LAB L501.0100 74-106 mg/dL Normal GLU 84 Result Comment: Please note revised GLUCOSE reference range effective 2017. LAB L501.1000 7-18 mg/dL High BUN 26 LAB L501.1100 0.55-1.02 mg/dL High CREAT,SERUM 1.41 Result Comment: The validity of the calculated GFR AND GFRAA in patients over 70 years has not been determined. Clinical correlation is essential. LAB L501.1110 >60 mL/min Low EST GFR 40 Result Comment: Non- GFR Calc LAB L501.1115 >60 mL/min Low EST GFR - AA 49 Result Comment: GFR Calc LAB L501.1300 10-20 RATIO Normal BUN/CRE 18.4 LAB L501.2200 8.5-10.1 mg/dL CA Normal 8.7 LAB L501.5300 136-145 mmol/L NA Normal 144 LAB L501.5600 3.5-5.1 mmol/L K Normal 3.9 LAB L501.5900 98-107 mmol/L High CL 109 LAB L501.6100 21.0-32.0 mmol/L Normal CO2 25.0 LAB L501.6200 5-15 Normal GAP 10 Performed By: #### L500.2500 #### [facility] [address] [place], [address] CBC W/DIFF, AUTOMATED Collected: 03/16/2018 Status: F Source: [place] 5:[address] [facility] REPOSITORY Order Comment: ROOM 500 TYPE CODE TESTS RESULT OUT OF RANGE REFERENCE UNITS LAB L100.1000 4.4-11.0 K/mm3 Normal WBC 9.4 LAB L100.1200 4.2-5.4 M/mm3 Normal RBC 4.41 LAB L100.1300 12.0-15.0 g/dl Normal HGB 12.4 LAB L100.1400 37-47 % Normal HCT 40.0 LAB L100.1500 81-99 fL Normal MCV 90.7 LAB L100.1600 27.0-32.0 pg Normal MCH 28.1 LAB L100.1700 32-36 g/gl Low MCHC 31.0 LAB L100.1810 11.6-14.6 % High RDW CV 14.8 LAB L100.1820 35.1-43.9 fl High RDW SD 48.5 LAB L100.1900 150-450 K/mm3 Normal PLT 371 LAB L100.2000 6.2-12.0 fl Normal MPV 10.2 LAB L100.2100 47-70 % Normal NEUT% 65.5 LAB L100.2200 19-41 % Normal LY% 23.9 LAB L100.2300 0-10 % Normal MONO% 5.9 LAB L100.2400 0-5 % Normal EO% 4.0 LAB L100.2500 0-1 % Normal BASO% 0.6 LAB L100.2550 0.0-0.9 % Normal IM GRAN % 0.100 Result Comment: IG% - Immature Granulocytes (promyelocytes, myelocytes and metamyelocytes) > 1% indicates that a LEFT SHIFT is Present. LAB L100.2620 2.0-7.7 X10 3/uL Normal Absolute Neut 6.2 LAB L100.2720 0.83-4.51 X10 3/ul Normal Absolute Lymph 2.25 Performed By: #### L100.0100 #### [facility] [address] [place], [address] COMPREHENSIVE METABOLIC Collected: 03/16/2018 Status: F Source: [place] 5:[address] [facility] REPOSITORY Order Comment: ROOM 500 TYPE CODE TESTS RESULT OUT OF RANGE REFERENCE UNITS LAB L501.0100 74-106 mg/dL Normal GLU 95 Result Comment: Please note revised GLUCOSE reference range effective 2017. LAB L501.1000 7-18 mg/dL High BUN 25 LAB L501.1100 0.55-1.02 mg/dL High CREAT,SERUM 1.27 Result Comment: The validity of the calculated GFR AND GFRAA in patients over 70 years has not been determined. Clinical correlation is essential. LAB L501.1110 >60 mL/min Low EST GFR 45 Result Comment: Non- GFR Calc LAB L501.1115 >60 mL/min Low EST GFR - AA 55 Result Comment: GFR Calc LAB L501.1300 10-20 RATIO Normal BUN/CRE 19.7 LAB L501.1500 6.4-8.2 g/dL T Normal PROT 6.5 LAB L501.1800 3.2-5.0 g/dL Low ALB 2.1 LAB L501.1950 2.2-4.2 g/dL High GLOB 4.4 LAB L501.2000 0.9-2.4 RATIO Low A/G 0.5 LAB L501.2200 8.5-10.1 mg/dL CA Normal 8.5 LAB L501.4100 15-37 U/L Low AST 9 LAB L501.4305 45-117 U/L Normal ALK P 67 LAB L501.4405 13-56 U/L Normal ALT 14 LAB L501.4600 0.20-1.00 mg/dL T Normal BILI 0.30 LAB L501.5300 136-145 mmol/L NA Normal 143 LAB L501.5600 3.5-5.1 mmol/L K Normal 3.9 LAB L501.5900 98-107 mmol/L High CL 111 LAB L501.6100 21.0-32.0 mmol/L Normal CO2 25.0 LAB L501.6200 5-15 Normal GAP 7 Performed By: #### L500.4050, L500.4100 #### [facility] [address] [place], [address] LIPID PROFILE Collected: 03/16/2018 Status: F Source: [place] 5:[address] [facility] REPOSITORY Order Comment: ROOM 500 TYPE CODE TESTS RESULT OUT OF RANGE REFERENCE UNITS LAB L501.4900 200 mg/dL High CHOL 212 Result Comment: <200 mg/dL Desirable 200-240 mg/dL Borderline >240 mg/dL High Risk LAB L501.5000 mg/dL High TRIG 303 Result Comment: The drugs N-Acetylcysteine and Metamizole may falsely depress this assay. Serum Triglycerides Reference Interval Normal <150 mg/dL Borderline high 150 - 199 mg/dL High 200 - 499 mg/dL Very High > or = 500 mg/dL LAB L501.6400 mg/dL Normal HDL 42 Result Comment: The drugs N-Acetylcysteine and Metamizole may falsely depress this assay. Reference Range HDL <40 mg/dL Low HDL Cholesterol HDL >or= 60 mg/dL High HDL Cholesterol LAB L501.6500 0-130 mg/dL Normal LDL 109 LAB L501.6600 5-40 mg/dL High VLDL 61 Performed By: #### L500.4050, L500.4100 #### [facility] [address] [place], [address] HEMOGLOBIN A1C Collected: 03/16/2018 Status: F Source: [place] 5:[address] [facility] REPOSITORY Order Comment: ROOM 500 TYPE CODE TESTS RESULT OUT OF RANGE REFERENCE UNITS LAB L501.9985 4.2-6.3 % High HGB A1C 7.3 Performed By: #### L501.9985 #### [facility] [address] [place], [address] BASIC METABOLIC Collected: 02/09/2018 Status: F Source: [place] PROFILE (BMP) 6:[address] [facility] REPOSITORY TYPE CODE TESTS RESULT OUT OF RANGE REFERENCE UNITS LAB L501.0100 74-106 mg/dL Normal GLU 94 Result Comment: Please note revised GLUCOSE reference range effective 2017. LAB L501.1000 7-18 mg/dL High BUN 28 LAB L501.1100 0.55-1.02 mg/dL High CREAT,SERUM 1.31 Result Comment: The validity of the calculated GFR AND GFRAA in patients over 70 years has not been determined. Clinical correlation is essential. LAB L501.1110 >60 mL/min Low EST GFR 44 Result Comment: Non- GFR Calc LAB L501.1115 >60 mL/min Low EST GFR - AA 53 Result Comment: GFR Calc LAB L501.1300 10-20 RATIO High BUN/CRE 21.4 LAB L501.2200 8.5-10.1 mg/dL CA Normal 8.5 LAB L501.5300 136-145 mmol/L NA Normal 143 LAB L501.5600 3.5-5.1 mmol/L K Normal 4.2 LAB L501.5900 98-107 mmol/L High CL 110 LAB L501.6100 21.0-32.0 mmol/L Normal CO2 26.0 LAB L501.6200 5-15 Normal GAP 7 Performed By: #### L500.2500 #### [facility] [address] [place], [place], [address] BASIC METABOLIC Collected: 01/25/2018 Status: F Source: [place] PROFILE (BMP) 5:[address] [facility] REPOSITORY Order Comment: ROOM 500 TYPE CODE TESTS RESULT OUT OF RANGE REFERENCE UNITS LAB L501.0100 74-106 mg/dL High GLU 164 Result Comment: Fasting Glucose result greater than or equal to 126 mg/dL suggests DIABETES MELLITUS per A.D.A. criteria. Please note revised GLUCOSE reference range effective 2017. LAB L501.1000 7-18 mg/dL High BUN 29 LAB L501.1100 0.55-1.02 mg/dL High CREAT,SERUM 1.33 Result Comment: The validity of the calculated GFR AND GFRAA in patients over 70 years has not been determined. Clinical correlation is essential. LAB L501.1110 >60 mL/min Low EST GFR 43 Result Comment: Non- GFR Calc LAB L501.1115 >60 mL/min Low EST GFR - AA 52 Result Comment: GFR Calc LAB L501.1300 10-20 RATIO High BUN/CRE 21.8 LAB L501.2200 8.5-10.1 mg/dL CA Normal 8.6 LAB L501.5300 136-145 mmol/L NA Normal 142 LAB L501.5600 3.5-5.1 mmol/L K Normal 4.1 LAB L501.5900 98-107 mmol/L High CL 109 LAB L501.6100 21.0-32.0 mmol/L Normal CO2 26.0 LAB L501.6200 5-15 Normal GAP 7 Performed By: #### L500.2500 #### [facility] [address] [place], [address] BASIC METABOLIC Collected: 12/17/2017 Status: F Source: [place] PROFILE (BMP) 5:[address] [facility] REPOSITORY Order Comment: RESULT(S) PREVIOUSLY REPORTED ON MANUAL REQUISITION DURING DOWNTIME. TYPE CODE TESTS RESULT OUT OF RANGE REFERENCE UNITS LAB L501.0100 74-106 mg/dL High GLU 165 Result Comment: Fasting Glucose result greater than or equal to 126 mg/dL suggests DIABETES MELLITUS per A.D.A. criteria. Please note revised GLUCOSE reference range effective 2017. LAB L501.1000 7-18 mg/dL High BUN 29 LAB L501.1100 0.55-1.02 mg/dL High CREAT,SERUM 1.29 Result Comment: The validity of the calculated GFR AND GFRAA in patients over 70 years has not been determined. Clinical correlation is essential. LAB L501.1110 >60 mL/min Low EST GFR 45 LAB L501.1115 >60 mL/min Low EST GFR - AA 55 LAB L501.1300 10-20 RATIO High BUN/CRE 22.5 LAB L501.2200 8.5-10.1 mg/dL Normal CA 8.7 LAB L501.5300 136-145 mmol/L Normal NA 143 LAB L501.5600 3.5-5.1 mmol/L Normal K 4.3 LAB L501.5900 98-107 mmol/L High CL 110 LAB L501.6100 21.0-32.0 mmol/L Normal CO2 24.0 LAB L501.6200 5-15 Normal GAP 9 Performed By: #### L500.2500 #### [facility] [address] [place], [place], [address] PROGRESS Observed: 12/16/2017 Status: COMPLETED Source: [place] 3:09 PM [facility] REPOSITORY HNO ID: [id number] Author: Balta Bailey Service: (none) Author Type: Physician Type: Progress Notes Filed: 12/20/2017 10:40 PM Note Text: ? Balta Bailey DPM Department of Podiatry [address] [facility] [address] Dept: [phone] Dept 12/16/2017 Follow Up Podiatric Office Visit: HPI: Alyse Sanchez is a 62 year old female. Patient presents for follow up for total nail avulsion, R hallux. Detention has been doing epsom salt soaks and abx ointment BID. Denies pain, nausea, vomiting, fever, fatigue, SOB, drainage, swelling. Patient had PVR testing on 12/09/17. Physical Exam: Constitutional: Pt is a well developed 62 year old female who is alert, oriented and cooperative Eyes: Following during examination. No redness or drainage. Respiratory: RR normal and nonlabored. Even breathing. No evidence of distress or shortness of breath. Psychology: Patient is engaged during conversation. Normal affect and mood. Does not appear depressed or anxious during encounter. Vascular: Dorsalis pedis and posterior tibial pulses palpable as = b/l Capillary Fill time < 5 seconds to digits 1-5 b/l Skin temperature warm to warm proximal to distal b/l Hair growth present to digits Neurological: Dermatological: Skin appears well hydrated and supple. good color, texture, turgor. Right hallux s/p total nail avulsion. There is healing of nail bed without signs of infection Musculoskeletal/Orthopaedic: Patient has no pain to palpation of right hallux ASSESSMENT: (S91.109A) Open wound of toe, initial encounter (primary encounter diagnosis) Plan: Patient s/p avulsion of right hallux toenail There is healing without signs of infection Continue with local wound care f/u as scheduled for nail care. If she has any issues, she will contact the office. Balta Bailey DPM CNOV Observed: 12/16/2017 Status: COMPLETED Source: [place] 2:20 PM [facility] REPOSITORY Office Visit (PODIWS) ALYSE ELLIS ([id number]) 1955 F [facility] Date Time Provider Department 12/16/17 2:20 PM BALTA BAILEY PODMAYITO During your visit today, we recorded the following information about you: Balta Bailey DPM 12/20/2017 10:40 PM Signed ? Balta Bailey DPM Department of Podiatry [address] [facility] [address] Dept: [phone] Dept 12/16/2017 Follow Up Podiatric Office Visit: HPI: Alyse Sanchez is a 62 year old female. Patient presents for follow up for total nail avulsion, R hallux. Detention has been doing epsom salt soaks and abx ointment BID. Denies pain, nausea, vomiting, fever, fatigue, SOB, drainage, swelling. Patient had PVR testing on 12/09/17. Physical Exam: Constitutional: Pt is a well developed 62 year old female who is alert, oriented and cooperative Eyes: Following during examination. No redness or drainage. Respiratory: RR normal and nonlabored. Even breathing. No evidence of distress or shortness of breath. Psychology: Patient is engaged during conversation. Normal affect and mood. Does not appear depressed or anxious during encounter. Vascular: Dorsalis pedis and posterior tibial pulses palpable as = b/l Capillary Fill time < 5 seconds to digits 1-5 b/l Skin temperature warm to warm proximal to distal b/l Hair growth present to digits Neurological: Dermatological: Skin appears well hydrated and supple. good color, texture, turgor. Right hallux s/p total nail avulsion. There is healing of nail bed without signs of infection Musculoskeletal/Orthopaedic: Patient has no pain to palpation of right hallux ASSESSMENT: (S91.109A) Open wound of toe, initial encounter (primary encounter diagnosis) Plan: Patient s/p avulsion of right hallux toenail There is healing without signs of infection Continue with local wound care f/u as scheduled for nail care. If she has any issues, she will contact the office. VIRIDIANA Alvarado RN 12/16/2017 3:25 PM Signed Ok to d/c epsom salt soaks and band-aid Follow up in 3 months for nail care Referring Provider: BALTA BAILEY [[id number]] Allergies As of Date: 12/16/2017 Noted Allergy Reaction CLONIDINE 11/14/2008 ERYTHROMYCIN 08/28/2009 LATEX 01/14/2009 2 - Rash PENICILLINS 07/18/2008 2 - Rash Date Reviewed: 12/16/2017 Reviewed by: Yesy Steen Ma - Fully Assessed Reason for Visit: Follow Up [171] Primary Visit Diagnosis:Open wound of toe, initial encounter [S91.109A] Prescriptions as of 12/16/2017 Sig: CEPHALEXIN 500 MG CAPSULE Take 500 mg by mouth twice da* LISINOPRIL 40 MG TABLET Take 0.5 tablets by mouth onc* FUROSEMIDE 20 MG TABLET Take 1 tablet by mouth twice * GUAIFENESIN ER 600 MG TABLET,* Take 1,200 mg by mouth every * KETOCONAZOLE 2 % SHAMPOO Apply to affected area once * AMMONIUM LACTATE 12 % LOTION Apply to affected area once * MENTHOL 0.44 %-ZINC OXIDE 20.* Apply to affected area as ne* CPAP NITROFURANTOIN 50 MG CAPSULE Take by mouth once daily. NYSTATIN-TRIAMCINOLONE 100,00* Apply 1 application to affect* ESCITALOPRAM 10 MG TABLET Take 10 mg by mouth once krishna* OXYBUTYNIN CHLORIDE ER 10 MG * Take 10 mg by mouth once krishna* CALCIPOTRIENE 0.005 % SCALP S* For the scalp. Apply a small* CLOBETASOL 0.05 % SCALP SOLUT* For scaling and redness of th* LEVONORGESTREL 20 MCG/24 HR (* INSERTED IN THE OFFICE GLUCAGON EMERGENCY INJECTION 1 Vial by INJECTION(UNSPECIFI* INSULIN REGULAR HUMAN U-500C* Inject subcutaneously. 0.20 * IMODIUM A-D 2 MG TABLET Take two(2) tablets followed * MYLANTA 200 MG-200 MG-20 MG/5* as needed GLUCOPHAGE 1,000 MG TABLET Take one(1) tablet daily. TYLENOL 325 MG TABLET Take two(2) tablets every fou* EX-LAX MILK OF MAGNESIA 400 M* 30cc by mouth every day prn PLAVIX 75 MG TABLET Take one(1) tablet daily. LOPRESSOR 100 MG TABLET Take one(1) tablet twice krishna* PRAVACHOL 40 MG TABLET Take one(1) tablet daily at b* Problem List As Of Date 12/16/2017 Noted Resolved CEREBROVASC DISEASE NEC [I67.89] INVALID FOR* ABNORMALITY OF GAIT [R26.9] INVALID FOR* URGE INCONTINENCE [N39.41] INVALID FOR* Abnormal mammogram, unspecified [R92.8] INVALID FOR*01/04/2017 CA IN SITU BREAST [D05.90] INVALID FOR* Malignant Neoplasm of Upper-Outer Quadrant of F*INVALID FOR* Hyperactivity of Bladder [N31.8] INVALID FOR* Diabetes mellitus [E11.9] INVALID FOR* Simple endometrial hyperplasia without atypia [*INVALID FOR* Small vessel disease (HCC) [I99.9] INVALID FOR* PAD (peripheral artery disease) (HCC) [I73.9] INVALID FOR* Type 2 diabetes mellitus with diabetic neuropat*INVALID FOR* Generalized edema [R60.1] INVALID FOR* Other instructions from your clinician: Ok to d/c epsom salt soaks and band-aid Follow up in 3 months for nail care Encounter Status:Closed by BALTA BAILEY DPM on 12/20/17 PROGRESS Observed: 12/09/2017 Status: COMPLETED Source: [place] 11:59 AM [facility] REPOSITORY HNO ID: [id number] Author: Brooklynn Pantoja RN Service: (none) Author Type: (none) Type: Progress Notes Filed: 12/09/2017 10:23 PM Note Text: UNIVERSAL PROTOCOL / SAFETY CHECKLIST Procedure to be performed: total nail avulsion, right hallux Sign in Communication: Completed Time Out: Team Confirms the Correct Patient, Correct Procedure, Correct Site and Site Marking, Correct Position (if applicable), Prep and Dry Time (if applicable). Time: 1159 Affirmation of Time Out: YES Sign Out Discussion: Completed Brooklynn Pantoja RN PROGRESS Observed: 12/09/2017 Status: COMPLETED Source: [place] 11:17 AM [facility] REPOSITORY HNO ID: [id number] Author: Balta Bailey Service: (none) Author Type: Physician Type: Progress Notes Filed: 12/14/2017 10:42 PM Note Text: ? Balta Bailey DPM Department of Podiatry [address] [place] [address] Dept: [phone] Dept 12/09/2017 Established Podiatric Office Visit: HPI: Alyse Sanchez is a 62 year old female. Patient presents with loosened toenail of her right hallux. Patient reports on 11/28/17 she bumped her R hallux on wheelchair. Later that day an aid at [facility], where patient resides, noticed that toenail was loose. Her toe became red and swollen. On 12/04/17 Dr. Jimenez of [facility] started patient on Keflex to help with redness and swelling. Since starting Keflex redness and swelling have gotten better. Mild drainage to toenail prior to antibiotic. Patient is also due for diabetic nail care. Physical Exam: Constitutional: Pt is a well developed 62 year old female who is alert, oriented and cooperative Eyes: Following during examination. No redness or drainage. Respiratory: RR normal and nonlabored. Even breathing. No evidence of distress or shortness of breath. Psychology: Patient is engaged during conversation. Normal affect and mood. Does not appear depressed or anxious during encounter. Vascular: Dorsalis pedis and posterior tibial pulses very faint palpable as b/l Capillary Fill time < 5 seconds to digits 1-5 b/l Skin temperature warm to cool proximal to distal b/l Hair growth present to digits dp and pt pulses are audible b/l Neurological: absent light touch/epicritic sensation Vibratory sensation diminished to hallux b/l Dermatological: Skin appears well hydrated and supple. Toenail of right hallux appears loose. There is complete detachement of right hallux nail border distally. The proximal nail border is loosely detached. Callosities absent. Toenails 2-5 right and 1-5 left are long, thick, dystrophic, painful. Right hallux nail removed. Nail bed appears intact Musculoskeletal/Orthopaedic: Patient has pain to palpation of right hallux nail ASSESSMENT: (L60.9) Loose toenail (primary encounter diagnosis) Comment: Toenail of right hallux appears loose and is traumatic avulsed. Discussed the lifting of nail plate and risk of iatrogenic lesion. Patient informed that past pvr does show mild pad. Informed patient that given this injury, there is certainly risk that this may lead to difficulty healing and potential risk of gangrene and risk of amputation. I did discuss leaving the nail intact but given the significant lifting and loosening, if the nail is not removed, it almost certainly will be traumatically removed by patient. She is in agreement with removal. She understands that by removing this toenail, she is at risk of slow healing. In addition to removing toenail, will get pvr, will order xray. Will have patient continue with antibioti and see her in 1 week. Discussed risks of toenail procedure not limited to infection, pain, swelling, bleeding, painful scarring, recurrence, need for revised procedure. ?Patient consented to proceed. ? 2. Patient was properly identified by name and a time out was completed. ?The R hallux was then injected with 50/50 mixture consisting of 1.5 cc of 2% lidocaine and 1.5 cc of 0.5% marcaine. The toe was then prepped and draped in the usual aseptic technique. ?A digital tournicot was applied to the toe. ?The entire nail was removed. Careful inspection was performed to assure no remaining spicule present. Tourniquet was removed and hyperemic response noted. Sterile dressing consisting of Amerigel, nonadherent gauze, and coban applied. Patient tolerated well. (B35.1) Onychomycosis Plan: 1. Patient was seen and evaluated. 2. Nails 1-5 bilateral were debrided in length and thickness. 3. Patient was instructed on the continued importance of diabetic foot care along with proper diet and keeping their blood sugar under control to prevent complications. (M79.675) Pain in toe of left foot (M79.674) Pain in toe of right foot Balta Bailey DPM ? CNOV Observed: 12/09/2017 Status: COMPLETED Source: [place] 10:55 AM [facility] REPOSITORY Office Visit (PODIWS) ALYSE ELLIS ([id number]) 1955 F [facility] Date Time Provider Department 12/09/17 10:55 AM BALTA BAILEY During your visit today, we recorded the following information about you: Balta Bailey DPM 12/14/2017 10:42 PM Addendum ? Balta Bailey DPM Department of Podiatry [facility] [address] [facility] [address] Dept: [phone] Dept 12/09/2017 Established Podiatric Office Visit: HPI: Alyse Sanchez is a 62 year old female. Patient presents with loosened toenail of her right hallux. Patient reports on 11/28/17 she bumped her R hallux on wheelchair. Later that day an aid at [facility], where patient resides, noticed that toenail was loose. Her toe became red and swollen. On 12/04/17 Dr. Jimenez of [facility] started patient on Keflex to help with redness and swelling. Since starting Keflex redness and swelling have gotten better. Mild drainage to toenail prior to antibiotic. Patient is also due for diabetic nail care. Physical Exam: Constitutional: Pt is a well developed 62 year old female who is alert, oriented and cooperative Eyes: Following during examination. No redness or drainage. Respiratory: RR normal and nonlabored. Even breathing. No evidence of distress or shortness of breath. Psychology: Patient is engaged during conversation. Normal affect and mood. Does not appear depressed or anxious during encounter. Vascular: Dorsalis pedis and posterior tibial pulses very faint palpable as b/l Capillary Fill time < 5 seconds to digits 1-5 b/l Skin temperature warm to cool proximal to distal b/l Hair growth present to digits dp and pt pulses are audible b/l Neurological: absent light touch/epicritic sensation Vibratory sensation diminished to hallux b/l Dermatological: Skin appears well hydrated and supple. Toenail of right hallux appears loose. There is complete detachement of right hallux nail border distally. The proximal nail border is loosely detached. Callosities absent. Toenails 2-5 right and 1-5 left are long, thick, dystrophic, painful. Right hallux nail removed. Nail bed appears intact Musculoskeletal/Orthopaedic: Patient has pain to palpation of right hallux nail ASSESSMENT: (L60.9) Loose toenail (primary encounter diagnosis) Comment: Toenail of right hallux appears loose and is traumatic avulsed. Discussed the lifting of nail plate and risk of iatrogenic lesion. Patient informed that past pvr does show mild pad. Informed patient that given this injury, there is certainly risk that this may lead to difficulty healing and potential risk of gangrene and risk of amputation. I did discuss leaving the nail intact but given the significant lifting and loosening, if the nail is not removed, it almost certainly will be traumatically removed by patient. She is in agreement with removal. She understands that by removing this toenail, she is at risk of slow healing. In addition to removing toenail, will get pvr, will order xray. Will have patient continue with antibioti and see her in 1 week. Discussed risks of toenail procedure not limited to infection, pain, swelling, bleeding, painful scarring, recurrence, need for revised procedure. ?Patient consented to proceed. ? 2. Patient was properly identified by name and a time out was completed. ?The R hallux was then injected with 50/50 mixture consisting of 1.5 cc of 2% lidocaine and 1.5 cc of 0.5% marcaine. The toe was then prepped and draped in the usual aseptic technique. ?A digital tournicot was applied to the toe. ?The entire nail was removed. Careful inspection was performed to assure no remaining spicule present. Tourniquet was removed and hyperemic response noted. Sterile dressing consisting of Amerigel, nonadherent gauze, and coban applied. Patient tolerated well. (B35.1) Onychomycosis Plan: 1. Patient was seen and evaluated. 2. Nails 1-5 bilateral were debrided in length and thickness. 3. Patient was instructed on the continued importance of diabetic foot care along with proper diet and keeping their blood sugar under control to prevent complications. (M79.675) Pain in toe of left foot (M79.674) Pain in toe of right foot Balta Bailey DPM ? Brooklynn Pantoja RN 12/09/2017 10:23 PM Signed UNIVERSAL PROTOCOL / SAFETY CHECKLIST Procedure to be performed: total nail avulsion, right hallux Sign in Communication: Completed Time Out: Team Confirms the Correct Patient, Correct Procedure, Correct Site and Site Marking, Correct Position (if applicable), Prep and Dry Time (if applicable). Time: 1159 Affirmation of Time Out: YES Sign Out Discussion: Completed Brooklynn Pantoja RN 12/09/2017 12:03 PM Signed Post-Op Nail Instructions Minimize activity until the anesthesia wears off (about 2- 8 hours). Increase activity to tolerance Remove bandage tomorrow Soak affected toe/foot in epsom salts for 15-20 minutes. Nursing staff to check right hallux for any black/dark discoloration while doing soaks. After soaking, wound care nurse to apply antibiotic ointment (OTC Neosporin) to affected toe and re bandage OTC Ibuprofen if having pain, provided you have no allergies or intolerance to NSAIDS Mild drainage, redness, and blood is expected, but if you expeirence severe pain, increase in drainage, swelling, or red streaking please contact our office immediately Feel free to contact office as well if you have any questions/concerns [phone], ask for Podiatry Nurse Referring Provider: BALTA BAILEY [[id number]] Allergies As of Date: 12/09/2017 Noted Allergy Reaction CLONIDINE 11/14/2008 ERYTHROMYCIN 08/28/2009 LATEX 01/14/2009 2 - Rash PENICILLINS 07/18/2008 2 - Rash Date Reviewed: 10/07/2017 Reviewed by: Helena Sharma) Anand - Fully Assessed Reason for Visit: Established Patient [175] Cmt: loose toenail, R hallux Primary Visit Diagnosis:Loose toenail [L60.9] Other Visit Diagnoses:PAD (peripheral artery disease) ([facility]) [I73.9] Onychomycosis [B35.1] Pain in toe of left foot [M79.675] Pain in toe of right foot [M79.674] Traumatic loss of toenail, right, initial encounter [S91.201A] Order(s):PVR ANK PRESS [facility] [[id number]] Order #: [id number] FUTURE XR FOOT GENERAL 3V AP/LAT/OBL RT [[id number]] Order #: [id number] FUTURE Prescriptions as of 12/09/2017 Sig: CEPHALEXIN 500 MG CAPSULE Take 500 mg by mouth twice da* LISINOPRIL 40 MG TABLET Take 0.5 tablets by mouth onc* FUROSEMIDE 20 MG TABLET Take 1 tablet by mouth twice * GUAIFENESIN ER 600 MG TABLET,* Take 1,200 mg by mouth every * KETOCONAZOLE 2 % SHAMPOO Apply to affected area once * AMMONIUM LACTATE 12 % LOTION Apply to affected area once * MENTHOL 0.44 %-ZINC OXIDE 20.* Apply to affected area as ne* CPAP NYSTATIN-TRIAMCINOLONE 100,00* Apply 1 application to affect* ESCITALOPRAM 10 MG TABLET Take 10 mg by mouth once krishna* OXYBUTYNIN CHLORIDE ER 10 MG * Take 10 mg by mouth once krishna* CALCIPOTRIENE 0.005 % SCALP S* For the scalp. Apply a small* LEVONORGESTREL 20 MCG/24 HR (* INSERTED IN THE OFFICE GLUCAGON EMERGENCY INJECTION 1 Vial by INJECTION(UNSPECIFI* INSULIN REGULAR HUMAN U-500C* Inject subcutaneously. 0.20 * IMODIUM A-D 2 MG TABLET Take two(2) tablets followed * MYLANTA 200 MG-200 MG-20 MG/5* as needed GLUCOPHAGE 1,000 MG TABLET Take one(1) tablet daily. TYLENOL 325 MG TABLET Take two(2) tablets every fou* EX-LAX MILK OF MAGNESIA 400 M* 30cc by mouth every day prn PLAVIX 75 MG TABLET Take one(1) tablet daily. LOPRESSOR 100 MG TABLET Take one(1) tablet twice krishna* PRAVACHOL 40 MG TABLET Take one(1) tablet daily at b* NITROFURANTOIN 50 MG CAPSULE Take by mouth once daily. CLOBETASOL 0.05 % SCALP SOLUT* For scaling and redness of th* Problem List As Of Date 12/09/2017 Noted Resolved CEREBROVASC DISEASE NEC [I67.89] INVALID FOR* ABNORMALITY OF GAIT [R26.9] INVALID FOR* URGE INCONTINENCE [N39.41] INVALID FOR* Abnormal mammogram, unspecified [R92.8] INVALID FOR*01/04/2017 CA IN SITU BREAST [D05.90] INVALID FOR* Malignant Neoplasm of Upper-Outer Quadrant of F*INVALID FOR* Hyperactivity of Bladder [N31.8] INVALID FOR* Diabetes mellitus [E11.9] INVALID FOR* Simple endometrial hyperplasia without atypia [*INVALID FOR* Small vessel disease (HCC) [I99.9] INVALID FOR* PAD (peripheral artery disease) (HCC) [I73.9] INVALID FOR* Type 2 diabetes mellitus with diabetic neuropat*INVALID FOR* Generalized edema [R60.1] INVALID FOR* Other instructions from your clinician: Post-Op Nail Instructions Minimize activity until the anesthesia wears off (about 2-8 hours). Increase activity to tolerance Remove bandage tomorrow Soak affected toe/foot in epsom salts for 15-20 minutes. Nursing staff to check right hallux for any black/dark discoloration while doing soaks. After soaking, wound care nurse to apply antibiotic ointment (OTC Neosporin) to affected toe and re bandage OTC Ibuprofen if having pain, provided you have no allergies or intolerance to NSAIDS Mild drainage, redness, and blood is expected, but if you expeirence severe pain, increase in drainage, swelling, or red streaking please contact our office immediately Feel free to contact office as well if you have any questions/concerns [phone], ask for Podiatry Nurse Encounter Status:Closed by BALTA BAILEY DPM on 12/09/17 HOSP Observed: 12/01/2017 Status: COMPLETED Source: [place] 12:00 AM CLINIC OTHER [place] REPOSITORY Get Medical Advice (AGCARDWST) ALYSE ELLIS ([id number]* 1955 F [facility] Date Time Provider Department 12/01/17 STEPHY HOGAN AGCARDWST During your visit today, we recorded the following information about you: Allergies As of Date: 12/01/2017 Noted Allergy Reaction CLONIDINE 11/14/2008 ERYTHROMYCIN 08/28/2009 LATEX 01/14/2009 2 - Rash PENICILLINS 07/18/2008 2 - Rash Date Reviewed: 10/07/2017 Reviewed by: Helena Sullivan - Fully Assessed Prescriptions as of 12/01/2017 Sig: LISINOPRIL 40 MG TABLET Take 0.5 tablets by mouth onc* FUROSEMIDE 20 MG TABLET Take 1 tablet by mouth twice * GUAIFENESIN ER 600 MG TABLET,* Take 1,200 mg by mouth every * KETOCONAZOLE 2 % SHAMPOO Apply to affected area once * AMMONIUM LACTATE 12 % LOTION Apply to affected area once * MENTHOL 0.44 %-ZINC OXIDE 20.* Apply to affected area as ne* CPAP NITROFURANTOIN 50 MG CAPSULE Take by mouth once daily. NYSTATIN-TRIAMCINOLONE 100,00* Apply 1 application to affect* ESCITALOPRAM 10 MG TABLET Take 10 mg by mouth once krishna* OXYBUTYNIN CHLORIDE ER 10 MG * Take 10 mg by mouth once krishna* CALCIPOTRIENE 0.005 % SCALP S* For the scalp. Apply a small* CLOBETASOL 0.05 % SCALP SOLUT* For scaling and redness of th* LEVONORGESTREL 20 MCG/24 HR (* INSERTED IN THE OFFICE GLUCAGON EMERGENCY INJECTION 1 Vial by INJECTION(UNSPECIFI* INSULIN REGULAR HUMAN U-500C* Inject subcutaneously. 0.20 * IMODIUM A-D 2 MG TABLET Take two(2) tablets followed * MYLANTA 200 MG-200 MG-20 MG/5* as needed GLUCOPHAGE 1,000 MG TABLET Take one(1) tablet daily. TYLENOL 325 MG TABLET Take two(2) tablets every fou* EX-LAX MILK OF MAGNESIA 400 M* 30cc by mouth every day prn PLAVIX 75 MG TABLET Take one(1) tablet daily. LOPRESSOR 100 MG TABLET Take one(1) tablet twice krishna* PRAVACHOL 40 MG TABLET Take one(1) tablet daily at b* Problem List As Of Date 12/01/2017 Noted Resolved CEREBROVASC DISEASE NEC [I67.89] INVALID FOR* ABNORMALITY OF GAIT [R26.9] INVALID FOR* URGE INCONTINENCE [N39.41] INVALID FOR* Abnormal mammogram, unspecified [R92.8] INVALID FOR*01/04/2017 CA IN SITU BREAST [D05.90] INVALID FOR* Malignant Neoplasm of Upper-Outer Quadrant of F*INVALID FOR* Hyperactivity of Bladder [N31.8] INVALID FOR* Diabetes mellitus [E11.9] INVALID FOR* Simple endometrial hyperplasia without atypia [*INVALID FOR* Small vessel disease (HCC) [I99.9] INVALID FOR* PAD (peripheral artery disease) (HCC) [I73.9] INVALID FOR* Type 2 diabetes mellitus with diabetic neuropat*INVALID FOR* Generalized edema [R60.1] INVALID FOR* Encounter Status:Closed by HELENA SULLIVAN MA on 12/02/17 TOO Observed: 11/30/2017 Status: COMPLETED Source: [place] 12:00 AM [facility] OTHER [place] REPOSITORY Telephone (AGCARDWST) ALYSE [id number]* 1955 F [facility] Date Time Provider Department 11/30/17 STEPHY HOGAN AGCARDWST During your visit today, we recorded the following information about you: Elham Franz LPN 11/30/2017 9:42 AM Signed Please review BMP results received on patient.JOHNNIE Rivera MD 11/30/2017 10:57 AM Signed Renal function has improved. MD Helena Armstrong MA 12/01/2017 11:21 AM Signed group home calling, wanting to know if you have any new orders? ROSEMARIE Guan MD 12/01/2017 11:25 AM Signed Continue current medication. Repeat basic profile in 2 weeks. MD Helena Armstrong MA 12/01/2017 2:45 PM Signed Margy notified and verbalized understanding. Helena Sullivan MA Allergies As of Date: 11/30/2017 Noted Allergy Reaction CLONIDINE 11/14/2008 ERYTHROMYCIN 08/28/2009 LATEX 01/14/2009 2 - Rash PENICILLINS 07/18/2008 2 - Rash Date Reviewed: 10/07/2017 Reviewed by: Helena Sullivan - Fully Assessed Reason for Visit: Patient Update [1234] Prescriptions as of 11/30/2017 Sig: LISINOPRIL 40 MG TABLET Take 0.5 tablets by mouth onc* FUROSEMIDE 20 MG TABLET Take 1 tablet by mouth twice * GUAIFENESIN ER 600 MG TABLET,* Take 1,200 mg by mouth every * KETOCONAZOLE 2 % SHAMPOO Apply to affected area once * AMMONIUM LACTATE 12 % LOTION Apply to affected area once * MENTHOL 0.44 %-ZINC OXIDE 20.* Apply to affected area as ne* CPAP NITROFURANTOIN 50 MG CAPSULE Take by mouth once daily. NYSTATIN-TRIAMCINOLONE 100,00* Apply 1 application to affect* ESCITALOPRAM 10 MG TABLET Take 10 mg by mouth once krishna* OXYBUTYNIN CHLORIDE ER 10 MG * Take 10 mg by mouth once krishna* CALCIPOTRIENE 0.005 % SCALP S* For the scalp. Apply a small* CLOBETASOL 0.05 % SCALP SOLUT* For scaling and redness of th* LEVONORGESTREL 20 MCG/24 HR (* INSERTED IN THE OFFICE GLUCAGON EMERGENCY INJECTION 1 Vial by INJECTION(UNSPECIFI* INSULIN REGULAR HUMAN U-500C* Inject subcutaneously. 0.20 * IMODIUM A-D 2 MG TABLET Take two(2) tablets followed * MYLANTA 200 MG-200 MG-20 MG/5* as needed GLUCOPHAGE 1,000 MG TABLET Take one(1) tablet daily. TYLENOL 325 MG TABLET Take two(2) tablets every fou* EX-LAX MILK OF MAGNESIA 400 M* 30cc by mouth every day prn PLAVIX 75 MG TABLET Take one(1) tablet daily. LOPRESSOR 100 MG TABLET Take one(1) tablet twice krishna* PRAVACHOL 40 MG TABLET Take one(1) tablet daily at b* Problem List As Of Date 11/30/2017 Noted Resolved CEREBROVASC DISEASE NEC [I67.89] INVALID FOR* ABNORMALITY OF GAIT [R26.9] INVALID FOR* URGE INCONTINENCE [N39.41] INVALID FOR* Abnormal mammogram, unspecified [R92.8] INVALID FOR*01/04/2017 CA IN SITU BREAST [D05.90] INVALID FOR* Malignant Neoplasm of Upper-Outer Quadrant of F*INVALID FOR* Hyperactivity of Bladder [N31.8] INVALID FOR* Diabetes mellitus [E11.9] INVALID FOR* Simple endometrial hyperplasia without atypia [*INVALID FOR* Small vessel disease (HCC) [I99.9] INVALID FOR* PAD (peripheral artery disease) (HCC) [I73.9] INVALID FOR* Type 2 diabetes mellitus with diabetic neuropat*INVALID FOR* Generalized edema [R60.1] INVALID FOR* Encounter Status:Closed by HELENA SULLIVAN MA on 11/30/17 BASIC METABOLIC Collected: 11/29/2017 Status: F Source: MARC PROFILE (BMP) 6:[address] [facility] REPOSITORY Order Comment: ROOM 500 TYPE CODE TESTS RESULT OUT OF RANGE REFERENCE UNITS LAB L501.0100 74-106 mg/dL High GLU 144 Result Comment: Fasting Glucose result greater than or equal to 126 mg/dL suggests DIABETES MELLITUS per A.D.A. criteria. Please note revised GLUCOSE reference range effective 2017. LAB L501.1000 7-18 mg/dL High BUN 32 LAB L501.1100 0.55-1.02 mg/dL High CREAT,SERUM 1.13 Result Comment: The validity of the calculated GFR AND GFRAA in patients over 70 years has not been determined. Clinical correlation is essential. LAB L501.1110 >60 mL/min Low EST GFR 52 Result Comment: Non- GFR Calc LAB L501.1115 >60 mL/min Normal EST GFR - AA 63 Result Comment: GFR Calc LAB L501.1300 10-20 RATIO High BUN/CRE 28.3 LAB L501.2200 8.5-10.1 mg/dL Low CA 8.4 LAB L501.5300 136-145 mmol/L NA Normal 140 LAB L501.5600 3.5-5.1 mmol/L K Normal 4.3 LAB L501.5900 98-107 mmol/L High CL 108 LAB L501.6100 21.0-32.0 mmol/L Normal CO2 22.0 LAB L501.6200 5-15 Normal GAP 10 Performed By: #### L500.2500 #### [facility] [address] [place], [address] BASIC METABOLIC Collected: 11/22/2017 Status: F Source: [place] PROFILE (BMP) 5:[address] [facility] REPOSITORY Order Comment: 500-2 TYPE CODE TESTS RESULT OUT OF RANGE REFERENCE UNITS LAB L501.0100 74-106 mg/dL High GLU 247 Result Comment: Glucose result greater than or equal to 200 mg/dL suggests DIABETES MELLITUS per A.D.A. criteria. Please note revised GLUCOSE reference range effective 2017. LAB L501.1000 7-18 mg/dL High BUN 35 LAB L501.1100 0.55-1.02 mg/dL High CREAT,SERUM 1.37 Result Comment: The validity of the calculated GFR AND GFRAA in patients over 70 years has not been determined. Clinical correlation is essential. LAB L501.1110 >60 mL/min Low EST GFR 42 Result Comment: Non- GFR Calc LAB L501.1115 >60 mL/min Low EST GFR - AA 50 Result Comment: GFR Calc LAB L501.1300 10-20 RATIO High BUN/CRE 25.5 LAB L501.2200 8.5-10.1 mg/dL Low CA 8.4 LAB L501.5300 136-145 mmol/L NA Normal 140 LAB L501.5600 3.5-5.1 mmol/L K Normal 4.7 LAB L501.5900 98-107 mmol/L High CL 112 LAB L501.6100 21.0-32.0 mmol/L Low CO2 19.0 LAB L501.6200 5-15 Normal GAP 9 Performed By: #### L500.2500 #### [facility] [address] [place], [place], [address] BASIC METABOLIC Collected: 11/15/2017 Status: F Source: [place] PROFILE (BMP) 6:[address] [facility] REPOSITORY Order Comment: ROOM 500 TYPE CODE TESTS RESULT OUT OF RANGE REFERENCE UNITS LAB L501.0100 74-106 mg/dL High GLU 156 Result Comment: Fasting Glucose result greater than or equal to 126 mg/dL suggests DIABETES MELLITUS per A.D.A. criteria. Please note revised GLUCOSE reference range effective 2017. LAB L501.1000 7-18 mg/dL High BUN 44 LAB L501.1100 0.55-1.02 mg/dL High CREAT,SERUM 1.21 Result Comment: The validity of the calculated GFR AND GFRAA in patients over 70 years has not been determined. Clinical correlation is essential. LAB L501.1110 >60 mL/min Low EST GFR 48 Result Comment: Non- GFR Calc LAB L501.1115 >60 mL/min Low EST GFR - AA 58 Result Comment: GFR Calc LAB L501.1300 10-20 RATIO High BUN/CRE 36.4 LAB L501.2200 8.5-10.1 mg/dL CA Normal 9.0 LAB L501.5300 136-145 mmol/L NA Normal 141 LAB L501.5600 3.5-5.1 mmol/L K Normal 4.9 LAB L501.5900 98-107 mmol/L High CL 112 LAB L501.6100 21.0-32.0 mmol/L Normal CO2 21.0 LAB L501.6200 5-15 Normal GAP 8 Performed By: #### L500.2500 #### [facility] [address] [place], [address] CNPN Observed: 11/15/2017 Status: COMPLETED Source: [place] 12:00 AM CLINIC OTHER [place] REPOSITORY Telephone (AGCARDWST) OMI ELLISON Sanju ([id number]* 1955 F [facility] Date Time Provider Department 11/15/17 STEPHY HOGAN AGCARDWST During your visit today, we recorded the following information about you: Elham Franz (Sample Maker Hand) 11/15/2017 4:36 PM Signed Please review outside labs on patient.JOHNNIE Rivera Kenneth E 11/15/2017 5:07 PM Signed Labs have improved and kidney function is better. Potassium is back in the normal range. Please provide weights, clinical update and vital signs and we will decide what to restart. MD Osei Armstrong Emily (Sample Maker Hand) 11/15/2017 5:20 PM Signed Janine informed and verbalized understanding.JOHNNIE Rivera Emily ([facility]) 11/16/2017 1:47 PM Signed Please see report received on patient.JOHNNIE Rivera Kenneth E 11/16/2017 3:14 PM Signed Noted. Continue to hold Lasix. Restart lisinopril at 20 milligrams daily. Update us with vital signs and report on edema and weight Wednesday. Have basic profile done next Wednesday. MD Osei Armstrong Emily (Sample Maker Hand) 11/16/2017 4:54 PM Signed chanel informed and verbalized understanding.JOHNNIE Rivera Marcia (Rn), RN 11/16/2017 5:16 PM Signed Chanel returning call--clarifying Lisinopril frequency--advised per below--Understanding with read-back -->Chanel asking if Provastatin 40mg qhs should still be held?? Please review and advise Stephy Hogan 11/17/2017 12:21 PM Signed When were they told to hold this? I don't have a record of that. Stephy Hogan MD The following approved medication requests have been transmitted electronically. Signed Prescriptions Disp Refills lisinopril (ZESTRIL, PRINIVIL) 40 mg tablet Sig: Take 0.5 tablets by mouth once daily. BALBIR: No Authorizing Provider: STEPHY HOGAN MD Shafer, Kenneth E 11/17/2017 12:21 PM Signed Addended by: STEPHY HOGAN MD on: 11/17/2017 12:21 PM Modules accepted: Orders Helena Sullivan) 11/17/2017 3:54 PM Signed [place] notified at [facility]. Helena Sullivan MA Allergies As of Date: 11/15/2017 Noted Allergy Reaction CLONIDINE 11/14/2008 ERYTHROMYCIN 08/28/2009 LATEX 01/14/2009 2 - Rash PENICILLINS 07/18/2008 2 - Rash Date Reviewed: 10/07/2017 Reviewed by: Helena Sullivan) - Fully Assessed Reason for Visit: Outside Lab Results [753] Order(s):lisinopril (ZESTRIL, PRINIVIL) 40 mg tabletTake 0.5 tablets by mouth once daily.Disp: Rfl: Prescriptions as of 11/15/2017 Sig: LISINOPRIL 40 MG TABLET Take 0.5 tablets by mouth onc* FUROSEMIDE 20 MG TABLET Take 1 tablet by mouth twice * GUAIFENESIN ER 600 MG TABLET,* Take 1,200 mg by mouth every * KETOCONAZOLE 2 % SHAMPOO Apply to affected area once * AMMONIUM LACTATE 12 % LOTION Apply to affected area once * MENTHOL 0.44 %-ZINC OXIDE 20.* Apply to affected area as ne* CPAP NITROFURANTOIN 50 MG CAPSULE Take by mouth once daily. NYSTATIN-TRIAMCINOLONE 100,00* Apply 1 application to affect* ESCITALOPRAM 10 MG TABLET Take 10 mg by mouth once krishna* OXYBUTYNIN CHLORIDE ER 10 MG * Take 10 mg by mouth once krishna* CALCIPOTRIENE 0.005 % SCALP S* For the scalp. Apply a small* CLOBETASOL 0.05 % SCALP SOLUT* For scaling and redness of th* LEVONORGESTREL 20 MCG/24 HR (* INSERTED IN THE OFFICE GLUCAGON EMERGENCY INJECTION 1 Vial by INJECTION(UNSPECIFI* INSULIN REGULAR HUMAN U-500C* Inject subcutaneously. 0.20 * IMODIUM A-D 2 MG TABLET Take two(2) tablets followed * MYLANTA 200 MG-200 MG-20 MG/5* as needed GLUCOPHAGE 1,000 MG TABLET Take one(1) tablet daily. TYLENOL 325 MG TABLET Take two(2) tablets every fou* EX-LAX MILK OF MAGNESIA 400 M* 30cc by mouth every day prn PLAVIX 75 MG TABLET Take one(1) tablet daily. 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] INVALID FOR* ABNORMALITY OF GAIT [R26.9] INVALID FOR* URGE INCONTINENCE [N39.41] INVALID FOR* Abnormal mammogram, unspecified [R92.8] INVALID FOR*01/04/2017 CA IN SITU BREAST [D05.90] INVALID FOR* Malignant Neoplasm of Upper-Outer Quadrant of F*INVALID FOR* Hyperactivity of Bladder [N31.8] INVALID FOR* Diabetes mellitus [E11.9] INVALID FOR* Simple endometrial hyperplasia without atypia [*INVALID FOR* Small vessel disease (HCC) [I99.9] INVALID FOR* PAD (peripheral artery disease) (HCC) [I73.9] INVALID FOR* Type 2 diabetes mellitus with diabetic neuropat*INVALID FOR* Generalized edema [R60.1] INVALID FOR* Prescriptions ordered this encounter Disp Refills Start End LISINOPRIL 40 MG TABLET 11/17/2017 Class: Med Update Route: ORAL Sig: Take 0.5 tablets by mouth once daily. Medications Discontinued During This Encounter lisinopril (ZESTRIL, PRINIVIL) 40 mg* 11/11/2017 11/17/2017 Class: Med Update Route: ORAL Sig: Take 1 tablet by mouth once daily. ON HOLD Disc: Reason for discontinue is not on file. Encounter Status:Closed by ELHAM FRANZ LPN on 11/16/17 BASIC METABOLIC Collected: 11/12/2017 Status: F Source: [place] PROFILE (BMP[facility] TYPE CODE TESTS RESULT OUT OF RANGE REFERENCE UNITS LAB L501.0100 74-106 mg/dL High GLU 159 Result Comment: Fasting Glucose result greater than or equal to 126 mg/dL suggests DIABETES MELLITUS per A.D.A. criteria. Please note revised GLUCOSE reference range effective 2017. LAB L501.1000 7-18 mg/dL High BUN 66 LAB L501.1100 0.55-1.02 mg/dL High CREAT,SERUM 1.44 Result Comment: The validity of the calculated GFR AND GFRAA in patients over 70 years has not been determined. Clinical correlation is essential. LAB L501.1110 >60 mL/min Low EST GFR 39 Result Comment: Non- GFR Calc LAB L501.1115 >60 mL/min Low EST GFR - AA 48 Result Comment: GFR Calc LAB L501.1300 10-20 RATIO High BUN/CRE 45.8 LAB L501.2200 8.5-10.1 mg/dL CA Normal 8.9 LAB L501.5300 136-145 mmol/L NA Normal 139 LAB L501.5600 3.5-5.1 mmol/L High K 5.9 LAB L501.5900 98-107 mmol/L High CL 113 LAB L501.6100 21.0-32.0 mmol/L Low CO2 20.0 LAB L501.6200 5-15 Normal GAP 6 Performed By: #### L500.2500 #### [facility] [address] [place], [address] BASIC METABOLIC Collected: 11/10/2017 Status: F Source: [place]ARC PROFILE ([facility]) 6:[address] [facility] REPOSITORY Order Comment: ROOM 500 [place] TYPE CODE TESTS RESULT OUT OF RANGE REFERENCE UNITS LAB L501.0100 74-106 mg/dL High GLU 201 Result Comment: Glucose result greater than or equal to 200 mg/dL suggests DIABETES MELLITUS per A.D.A. criteria. Please note revised GLUCOSE reference range effective 2017. LAB L501.1000 7-18 mg/dL High BUN 67 LAB L501.1100 0.55-1.02 mg/dL High CREAT,SERUM 1.63 Result Comment: The validity of the calculated GFR AND GFRAA in patients over 70 years has not been determined. Clinical correlation is essential. LAB L501.1110 >60 mL/min Low EST GFR 34 Result Comment: Non- GFR Calc LAB L501.1115 >60 mL/min Low EST GFR - AA 41 Result Comment: GFR Calc LAB L501.1300 10-20 RATIO High BUN/CRE 41.1 LAB L501.2200 8.5-10.1 mg/dL CA Normal 8.8 LAB L501.5300 136-145 mmol/L NA Normal 137 LAB L501.5600 3.5-5.1 mmol/L High K 5.5 LAB L501.5900 98-107 mmol/L High CL 109 LAB L501.6100 21.0-32.0 mmol/L Low CO2 19.0 LAB L501.6200 5-15 Normal GAP 9 Performed By: #### L500.2500 #### [facility] [address] [place], [address] BASIC METABOLIC Collected: 11/08/2017 Status: F Source: [place] PROFILE (BMP) 7:[address] [facility] REPOSITORY TYPE CODE TESTS RESULT OUT OF RANGE REFERENCE UNITS LAB L501.0100 74-106 mg/dL High GLU 198 Result Comment: Fasting Glucose result greater than or equal to 126 mg/dL suggests DIABETES MELLITUS per A.D.A. criteria. Please note revised GLUCOSE reference range effective 2017. LAB L501.1000 7-18 mg/dL High BUN 59 LAB L501.1100 0.55-1.02 mg/dL High CREAT,SERUM 1.55 Result Comment: The validity of the calculated GFR AND GFRAA in patients over 70 years has not been determined. Clinical correlation is essential. LAB L501.1110 >60 mL/min Low EST GFR 36 Result Comment: Non- GFR Calc LAB L501.1115 >60 mL/min Low EST GFR - AA 44 Result Comment: GFR Calc LAB L501.1300 10-20 RATIO High BUN/CRE 38.1 LAB L501.2200 8.5-10.1 mg/dL CA Normal 9.2 LAB L501.5300 136-145 mmol/L NA Normal 137 LAB L501.5600 3.5-5.1 mmol/L High K 5.7 LAB L501.5900 98-107 mmol/L High CL 110 LAB L501.6100 21.0-32.0 mmol/L Low CO2 19.0 LAB L501.6200 5-15 Normal GAP 8 Performed By: #### L500.2500 #### [facility] [address] [place], [place], [id number] BASIC METABOLIC Collected: 10/15/2017 Status: F Source: MARC PROFILE (BMP) 5:[address] [facility] REPOSITORY Order Comment: ROOM 500-2 BRANDEE TYPE CODE TESTS RESULT OUT OF RANGE REFERENCE UNITS LAB L501.0100 74-106 mg/dL Normal GLU 94 Result Comment: Please note revised GLUCOSE reference range effective 2017. LAB L501.1000 7-18 mg/dL High BUN 31 LAB L501.1100 0.55-1.02 mg/dL High CREAT,SERUM 1.22 Result Comment: The validity of the calculated GFR AND GFRAA in patients over 70 years has not been determined. Clinical correlation is essential. LAB L501.1110 >60 mL/min Low EST GFR 48 Result Comment: Non- GFR Calc LAB L501.1115 >60 mL/min Low EST GFR - AA 58 Result Comment: GFR Calc LAB L501.1300 10-20 RATIO High BUN/CRE 25.4 LAB L501.2200 8.5-10.1 mg/dL CA Normal 9.0 LAB L501.5300 136-145 mmol/L NA Normal 142 LAB L501.5600 3.5-5.1 mmol/L K Normal 4.5 LAB L501.5900 98-107 mmol/L CL Normal 107 LAB L501.6100 21.0-32.0 mmol/L Normal CO2 27.0 LAB L501.6200 5-15 Normal GAP 8 Performed By: #### L500.2500, L501.9520 #### [facility] [address] [place], [place], [address] THYROID STIM HORMONE Collected: 10/15/2017 Status: F Source: MARC (TSH) 5:[address] [facility] REPOSITORY Order Comment: ROOM 500-2 BRANDEE TYPE CODE TESTS RESULT OUT OF RANGE REFERENCE UNITS LAB L501.9520 0.358-3.74 uIU/mL High TSH 3.84 Performed By: #### L500.2500, L501.9520 #### [facility] [address] [place], [address] PROGRESS Observed: 10/07/2017 Status: COMPLETED Source: [place] 1:40 PM [facility]INIC OTHER [facility] REPOSITORY HNO ID: [id number] Author: Stephy Hogan Service: (none) Author Type: Physician Type: Progress Notes Filed: 10/07/2017 5:14 PM Note Text: PERTINENT CARDIAC HISTORY Abnormal ECG - lateral T wave inversion, resolved (?related to neuro, ischemia) HL DM HTN LOI - CPAP noncompliant CHF? - Diastolic ADHERENCE TO GUIDELINES TOMI-I or ARB for HF with prior LVEF<40 (NQF 0081) - N/A ASA or Plavix for ASHD (NQF 0067) - met Beta taylor for ASHD with prior IL or prior LVEF<40 (NQF 0070) - N/A Beta taylor for HF with prior LVEF<40 (NQF 0083) - N/A TOMI-I or ARB for ASHD with DM or prior LVEF<40 (NQF 0066) - met Statin therapy for ASHD or FHL or DM - met BMI documented and plan if >25 (NQF 0421) - lifestyle recommendation form Tobacco use screening and referral (NQF 0028) - lifestyle recommendation form Recommendation for whole food, plant based diet - lifestyle recommendation form CLINICAL IMPRESSION/PLAN: Alyse Sanchez continues to gain weight. Her edema is likely related to venous insufficiency. There is no evidence of heart failure as her neck veins are not elevated and she has no evidence of pleural effusion. We had a conversation regarding the morbidity associated with obesity and the danger that she will develop complications including cellulitis, DVT, etc. I strongly advised her to use her CPAP, be compliant with calorie and sodium restriction and get moving. She has an excuse for not doing any of the above. In an attempt to get better control of her edema, she will be started on Aldactone 25 milligrams twice daily with basic profile in one week. I've asked the [place] [facility] to provide us with weights periodically. I will see her in 6 months. Written and verbal health teaching given to patient, patient verbalizes understanding and agrees with treatment plan. DIAGNOSIS FOR VISIT: CHF Hypertension HISTORY OF PRESENT ILLNESS Alyse Sanchez returns for follow-up of her hypertension and diastolic heart failure. She has gained another 12 pounds since last visit. This makes about 80 pounds since I began seeing her. She reports that she is having some drainage of fluid from her lower extremities, although recent notes from the [place] [facility] suggests that she has no edema. She is currently following in podiatry for diabetic feet. She has declined walking because she is afraid that she will injure her feet. Report from dietitian and nursing at [facility] [facility] suggests that she is noncompliant, eating snacks and asking for seconds. She has been resistant to walking and wearing her CPAP. She denies chest discomfort. She's had no syncope, palpitations, TIAs, amaurosis or claudication. ALLERGIES: ALLERGIES Allergen Reactions - Clonidine - Erythromycin - Latex Rash - Penicillins Rash CURRENT OUTPATIENT MEDICATIONS: furosemide (LASIX) 20 mg tablet Take 1 tablet by mouth once daily. guaiFENesin (MUCINEX) 600 mg 12 hr tablet Take 1,200 mg by mouth every 12 hours as needed. ketoconazole (NIZORAL) 2 % shampoo Apply to affected area once daily as needed. ammonium lactate (LAC-HYDRIN) 12 % lotion Apply to affected area once daily. Menthol-Zinc Oxide (CALMOSEPTINE) 0.44-20.6 % Apply to affected area as needed. CPAP nystatin-triamcinolone cream Apply 1 application to affected area twice daily. As needed for redness and irritation of the inframammary area, abdominal fold, and groin. May be restarted for return of skin irritation as needed. escitalopram (LEXAPRO) 10 mg tablet Take 10 mg by mouth once daily. oxybutynin XL 10 mg 24 hr tablet Take 10 mg by mouth once daily. Calcipotriene (DOVONEX) 0.005 % Soln For the scalp. Apply a small amount twice daily to the affected areas for scaling. Clobetasol Propionate 0.05 % external solution For scaling and redness of the scalp. Use once daily for 3 weeks, then use once daily on every Wednesday and Wednesday. levonorgestrel (MIRENA) 20 mcg/24 hr IUD INSERTED IN THE OFFICE GLUCAGON,HUMAN RECOMBINANT (GLUCAGON EMERGENCY INJECTION) 1 Vial by INJECTION(UNSPECIFIED PARENTERAL ROUTES) route as needed. insulin regular human, CONCENTRATED 500 UNIT/ML, (HUMULIN R) 500 unit/mL INJECTION Soln Inject subcutaneously. 0.20 cc (100 units) twice a day, before breakfast and supper loperamide hcl(IMODIUM A-D 2 MG TAB) Take two(2) tablets followed by one(1) tablet after each loose stool as needed for diarrhea. mag hydrox/al hydrox/simeth(MYLANTA 200 MG-200 MG-20 MG/5 ML ORAL SUSP) as needed metformin hcl(GLUCOPHAGE 1,000 MG TAB) Take one(1) tablet daily. acetaminophen(TYLENOL 325 MG TAB) Take two(2) tablets every four hours as needed for pain or elevated temp. magnesium hydroxide (clh3304)(EX-LAX MILK OF MAGNESIA 400 MG/5 ML ORAL SUSP) 30cc by mouth every day prn clopidogrel bisulfate(PLAVIX 75 MG TAB) Take one(1) tablet daily. metoprolol tartrate(LOPRESSOR 100 MG TAB) Take one(1) tablet twice daily. LISINOPRIL 40 MG TAB Take one(1) tablet two(2) times daily. pravastatin sodium(PRAVACHOL 40 MG TAB) Take one(1) tablet daily at bedtime. Nitrofurantoin 50 mg cap Take by mouth once daily. PHYSICAL EXAMINATION: VITAL SIGNS: BP 130/64 Pulse 68 Ht 5' 5 (1.65m) Wt 359 lb 3.2 oz (162.9kg) BMI 59.77 kg/(m2). Chest: Clear to percussion and auscultation. Trachea is midline. Air entry is equal. Cardiac: Regular rhythm. S1 and S2 are normal. PMI is nondisplaced. There is a soft systolic ejection murmur. Carotids are brisk without bruits. JVP is less than 10 cm. Abdomen: Soft and nontender. There is a huge pannus with presacral edema and edema of the abdominal wall. There are no pulsatile masses or bruits. No liver enlargement. Bowel sounds are active. Extremities: 3 plus chronic pitting edema. Some drainage is apparent. Support stockings were not removed. Pulses are intact and symmetrical. Recent labs reviewed. Renal function is stable. She is not anemic. Records from dietitians were reviewed. They report noncompliance with calorie and salt restriction. She has resisted walking. She has been on the increased dose of Lasix. She has not been using her CPAP consistently and has not used it all for the last 2 weeks. Dietitian estimated that she is getting over 4 grams of sodium per day. Electronically Signed: Stephy Hogan MD October 07, 2017 1:40 PM CC: Adrian Jimenez MD CNOV Observed: 10/07/2017 Status: COMPLETED Source: [place] 1:30 PM CLINIC OTHER CAMPUS REPOSITORY Office Visit (AGCARDWST) ALYSE ELLIS ([id number]* 1955 F [facility] Date Time Provider Department 10/07/17 1:30 PM STEPHY HOGAN AGCARDWSDarby During your visit today, we recorded the following information about you: Pulse Blood pressure Weight Height 68/minute 130/64 162.9 kg 1.651 m Stephy Hogan MD 10/07/2017 5:14 PM Signed PERTINENT CARDIAC HISTORY Abnormal ECG - lateral T wave inversion, resolved (?related to neuro, ischemia) HL DM HTN LOI - CPAP noncompliant CHF? - Diastolic ADHERENCE TO GUIDELINES TOMI-I or ARB for HF with prior LVEFANDlt;40 (NQF 0081) - N/A ASA or Plavix for ASHD (NQF 0067) - met Beta taylor for ASHD with prior IL or prior LVEFANDlt;40 (NQF 0070) - N/A Beta taylor for HF with prior LVEFANDlt;40 (NQF 0083) - N/A TOMI-I or ARB for ASHD with DM or prior LVEFANDlt;40 (NQF 0066) - met Statin therapy for ASHD or FHL or DM - met BMI documented and plan if ANDgt;25 (NQF 0421) - lifestyle recommendation form Tobacco use screening and referral (NQF 0028) - lifestyle recommendation form Recommendation for whole food, plant based diet - lifestyle recommendation form CLINICAL IMPRESSION/PLAN: Alyse Sanchez continues to gain weight. Her edema is likely related to venous insufficiency. There is no evidence of heart failure as her neck veins are not elevated and she has no evidence of pleural effusion. We had a conversation regarding the morbidity associated with obesity and the danger that she will develop complications including cellulitis, DVT, etc. I strongly advised her to use her CPAP, be compliant with calorie and sodium restriction and get moving. She has an excuse for not doing any of the above. In an attempt to get better control of her edema, she will be started on Aldactone 25 milligrams twice daily with basic profile in one week. I've asked the [place] [facility] to provide us with weights periodically. I will see her in 6 months. Written and verbal health teaching given to patient, patient verbalizes understanding and agrees with treatment plan. DIAGNOSIS FOR VISIT: CHF Hypertension HISTORY OF PRESENT ILLNESS Alyse Sanchez returns for follow-up of her hypertension and diastolic heart failure. She has gained another 12 pounds since last visit. This makes about 80 pounds since I began seeing her. She reports that she is having some drainage of fluid from her lower extremities, although recent notes from the [place] [facility] suggests that she has ANDquot;no edemaANDquot;. She is currently following in podiatry for diabetic feet. She has declined walking because she is afraid that she will injure her feet. Report from dietitian and nursing at [facility] suggests that she is noncompliant, eating snacks and asking for seconds. She has been resistant to walking and wearing her CPAP. She denies chest discomfort. She's had no syncope, palpitations, TIAs, amaurosis or claudication. ALLERGIES: ALLERGIES Allergen Reactions - Clonidine - Erythromycin - Latex Rash - Penicillins Rash CURRENT OUTPATIENT MEDICATIONS: furosemide (LASIX) 20 mg tablet Take 1 tablet by mouth once daily. guaiFENesin (MUCINEX) 600 mg 12 hr tablet Take 1,200 mg by mouth every 12 hours as needed. ketoconazole (NIZORAL) 2 % shampoo Apply to affected area once daily as needed. ammonium lactate (LAC-HYDRIN) 12 % lotion Apply to affected area once daily. Menthol-Zinc Oxide (CALMOSEPTINE) 0.44-20.6 % Apply to affected area as needed. CPAP nystatin-triamcinolone cream Apply 1 application to affected area twice daily. As needed for redness and irritation of the inframammary area, abdominal fold, and groin. May be restarted for return of skin irritation as needed. escitalopram (LEXAPRO) 10 mg tablet Take 10 mg by mouth once daily. oxybutynin XL 10 mg 24 hr tablet Take 10 mg by mouth once daily. Calcipotriene (DOVONEX) 0.005 % Soln For the scalp. Apply a small amount twice daily to the affected areas for scaling. Clobetasol Propionate 0.05 % external solution For scaling and redness of the scalp. Use once daily for 3 weeks, then use once daily on every Wednesday and Wednesday. levonorgestrel (MIRENA) 20 mcg/24 hr IUD INSERTED IN THE OFFICE GLUCAGON,HUMAN RECOMBINANT (GLUCAGON EMERGENCY INJECTION) 1 Vial by INJECTION(UNSPECIFIED PARENTERAL ROUTES) route as needed. insulin regular human, CONCENTRATED 500 UNIT/ML, (HUMULIN R) 500 unit/mL INJECTION Soln Inject subcutaneously. 0.20 cc (100 units) twice a day, before breakfast and supper loperamide hcl(IMODIUM A-D 2 MG TAB) Take two(2) tablets followed by one(1) tablet after each loose stool as needed for diarrhea. mag hydrox/al hydrox/simeth(MYLANTA 200 MG-200 MG-20 MG/5 ML ORAL SUSP) as needed metformin hcl(GLUCOPHAGE 1,000 MG TAB) Take one(1) tablet daily. acetaminophen(TYLENOL 325 MG TAB) Take two(2) tablets every four hours as needed for pain or elevated temp. magnesium hydroxide ([id number])(EX-LAX MILK OF MAGNESIA 400 MG/5 ML ORAL SUSP) 30cc by mouth every day prn clopidogrel bisulfate(PLAVIX 75 MG TAB) Take one(1) tablet daily. metoprolol tartrate(LOPRESSOR 100 MG TAB) Take one(1) tablet twice daily. LISINOPRIL 40 MG TAB Take one(1) tablet two(2) times daily. pravastatin sodium(PRAVACHOL 40 MG TAB) Take one(1) tablet daily at bedtime. Nitrofurantoin 50 mg cap Take by mouth once daily. PHYSICAL EXAMINATION: VITAL SIGNS: BP 130/64 Pulse 68 Ht 5' 5ANDquot; (1.65m) Wt 359 lb 3.2 oz (162.9kg) BMI 59.77 kg/(m2). Chest: Clear to percussion and auscultation. Trachea is midline. Air entry is equal. Cardiac: Regular rhythm. S1 and S2 are normal. PMI is nondisplaced. There is a soft systolic ejection murmur. Carotids are brisk without bruits. JVP is less than 10 cm. Abdomen: Soft and nontender. There is a huge pannus with presacral edema and edema of the abdominal wall. There are no pulsatile masses or bruits. No liver enlargement. Bowel sounds are active. Extremities: 3 plus chronic pitting edema. Some drainage is apparent. Support stockings were not removed. Pulses are intact and symmetrical. Recent labs reviewed. Renal function is stable. She is not anemic. Records from dietitians were reviewed. They report noncompliance with calorie and salt restriction. She has resisted walking. She has been on the increased dose of Lasix. She has not been using her CPAP consistently and has not used it all for the last 2 weeks. Dietitian estimated that she is getting over 4 grams of sodium per day. Electronically Signed: Stephy Hogan MD October 07, 2017 1:40 PM CC: MD Stephy Fields MD 10/07/2017 1:46 PM Signed Begin Aldactone 25 mg twice daily BMP, TSH in one week and fax to [phone] LIFESTYLE CHANGE A healthy lifestyle is the most important component of your overall treatment plan. 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 EAT A WHOLE FOOD, PLANT BASED DIET The nutrition your body gets is more important than the medicine you take. What matters most is the overall way you eat. We encourage you to minimize the use of animal products (which include dairy and all meats except fatty fish) and use whole, unprocessed plant foods to provide your protein, vitamins and other nutrients. We have a lot of information to share with you on this topic. We also hold Shared Medical Appointments, where you can come visit with Dr. Hogan in the company of other patients and spend over an hour talking about the challenges of changing the way you eat. This is not a ANDquot;dietANDquot;. It is a way of life that you will keep with you. EXERCISE REGULARLY It is not important to spend hours in the gym, lifting weights and perspiring heavily. A total of 2-3 hours per week of aerobic (causing you to be moderately short of breath) exercise is sufficient to improve your health. Talk to us before you begin a new exercise program, if you have heart disease or experience shortness of breath or chest pain. REDUCE STRESS Chronic emotional and physical stress leads to disease. Ways of reducing stress include meditation, visualization, prayer, yoga and other forms of relaxation therapy. Consistency is the brown. Find a technique that works for you and do it every day. CULTIVATE RELATIONSHIPS Loneliness and isolation have a major negative impact on health. Seek out others who can love, care for and nurture you. Avoid hurtful relationships. MAINTAIN IDEAL BODY WEIGHT The best way to do this is to do all the things above. Our bodies naturally find the right weight if we keep moving and feed ourselves the right food. If your BMI is greater than 25, we strongly recommend a referral to a weight management program. Please speak to us or your family physician about available programs. AVOID NICOTINE IN ALL FORMS This includes all tobacco products, whether chewed, smoked, vaped, or rubbed on the skin. Smoking cessation programs, which can make use of tobacco substitutes, medications to suppress cravings and behavior management, are available. Please contact your family physician about programs in your area. Donald Vaughn RN, RN 10/08/2017 8:50 AM Signed Copy of OV note faxed to [facility] @ [phone]. Referring Provider: SELF [200] Allergies As of Date: 10/07/2017 Noted Allergy Reaction CLONIDINE 11/14/2008 ERYTHROMYCIN 08/28/2009 LATEX 01/14/2009 2 - Rash PENICILLINS 07/18/2008 2 - Rash Date Reviewed: 10/07/2017 Reviewed by: Helena Sullivan - Fully Assessed Reason for Visit: Follow Up [171] Primary Visit Diagnosis:Essential hypertension [I10] Other Visit Diagnosis:Chronic diastolic CHF (congestive heart failure) (HCC) [I50.32] Order(s):BASIC METABOLIC PNL [SQBMP] Order #: [id number] FUTURE TSH BLD [SQTSH] Order #: [id number] FUTURE spironolactone (ALDACTONE) 25 mg tabletTake 1 tablet by mouth twice daily.Disp: 60 tabletRfl: 3 Prescriptions as of 10/07/2017 Sig: FUROSEMIDE 20 MG TABLET Take 1 tablet by mouth once d* Patient taking differently: Take 20 mg by mouth twice leesa* GUAIFENESIN ER 600 MG TABLET,* Take 1,200 mg by mouth every * KETOCONAZOLE 2 % SHAMPOO Apply to affected area once * AMMONIUM LACTATE 12 % LOTION Apply to affected area once * MENTHOL 0.44 %-ZINC OXIDE 20.* Apply to affected area as ne* CPAP NYSTATIN-TRIAMCINOLONE 100,00* Apply 1 application to affect* ESCITALOPRAM 10 MG TABLET Take 10 mg by mouth once krishna* OXYBUTYNIN CHLORIDE ER 10 MG * Take 10 mg by mouth once krishna* CALCIPOTRIENE 0.005 % SCALP S* For the scalp. Apply a small* CLOBETASOL 0.05 % SCALP SOLUT* For scaling and redness of th* LEVONORGESTREL 20 MCG/24 HR (* INSERTED IN THE OFFICE GLUCAGON EMERGENCY INJECTION 1 Vial by INJECTION(UNSPECIFI* INSULIN REGULAR HUMAN U-500C* Inject subcutaneously. 0.20 * IMODIUM A-D 2 MG TABLET Take two(2) tablets followed * MYLANTA 200 MG-200 MG-20 MG/5* as needed GLUCOPHAGE 1,000 MG TABLET Take one(1) tablet daily. TYLENOL 325 MG TABLET Take two(2) tablets every fou* EX-LAX MILK OF MAGNESIA 400 M* 30cc by mouth every day prn PLAVIX 75 MG TABLET Take one(1) tablet daily. LOPRESSOR 100 MG TABLET Take one(1) tablet twice krishna* LISINOPRIL 40 MG TABLET Take one(1) tablet two(2) jane* PRAVACHOL 40 MG TABLET Take one(1) tablet daily at b* SPIRONOLACTONE 25 MG TABLET Take 1 tablet by mouth twice * NITROFURANTOIN 50 MG CAPSULE Take by mouth once daily. 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 Please give serious thought to the following areas and commit to making custodial changes. EAT A WHOLE FOOD, PLANT BASED DIET The nutrition your body gets is more important than the medicine you take. What matters most is the overall way you eat. We encourage you to minimize the use of animal products (which include dairy and all meats except fatty fish) and use whole, unprocessed plant foods to provide your protein, vitamins and other nutrients. We have a lot of information to share with you on this topic. We also hold Shared Medical Appointments, where you can come visit with Dr. Hogan in the company of other patients and spend over an hour talking about the challenges of changing the way you eat. This is not a diet. It is a way of life that you will keep with you. EXERCISE REGULARLY It is not important to spend hours in the gym, lifting weights and perspiring heavily. A total of 2-3 hours per week of aerobic (causing you to be moderately short of breath) exercise is sufficient to improve your health. Talk to us before you begin a new exercise program, if you have heart disease or experience shortness of breath or chest pain. REDUCE STRESS Chronic emotional and physical stress leads to disease. Ways of reducing stress include meditation, visualization, prayer, yoga and other forms of relaxation therapy. Consistency is the brown. Find a technique that works for you and do it every day. CULTIVATE RELATIONSHIPS Loneliness and isolation have a major negative impact on health. Seek out others who can love, care for and nurture you. Avoid hurtful relationships. MAINTAIN IDEAL BODY WEIGHT The best way to do this is to do all the things above. Our bodies naturally find the right weight if we keep moving and feed ourselves the right food. If your BMI is greater than 25, we strongly recommend a referral to a weight management program. Please speak to us or your family physician about available programs. AVOID NICOTINE IN ALL FORMS This includes all tobacco products, whether chewed, smoked, vaped, or rubbed on the skin. Smoking cessation programs, which can make use of tobacco substitutes, medications to suppress cravings and behavior management, are available. Please contact your family physician about programs in your area. Visit Notes: >> Donald (Ryan) RYAN Vaughn WedOct 08, 2017 8:50 AM Status: Signed Copy of OV note faxed to [employer] @ [phone]. Prescriptions ordered this encounter Disp Refills Start End SPIRONOLACTONE 25 MG TABLET 60 t* 3 10/07/2017 Route: ORAL Sig: Take 1 tablet by mouth twice daily. Follow-up and Disposition History Recorded Encounter Status:Closed by STEPHY HOGAN MD on 10/07/17 CBC W/DIFF, AUTOMATED Collected: 09/15/2017 Status: F Source: [place] 7:[address] [facility] REPOSITORY Order Comment: ROOM 500-2 TYPE CODE TESTS RESULT OUT OF RANGE REFERENCE UNITS LAB L100.1000 4.4-11.0 K/mm3 High WBC 12.0 LAB L100.1200 4.2-5.4 M/mm3 Normal RBC 4.71 LAB L100.1300 12.0-15.0 g/dl Normal HGB 13.9 LAB L100.1400 37-47 % Normal HCT 43.7 LAB L100.1500 81-99 fL Normal MCV 92.8 LAB L100.1600 27.0-32.0 pg Normal MCH 29.5 LAB L100.1700 32-36 g/gl Low MCHC 31.8 LAB L100.1810 11.6-14.6 % High RDW CV 14.9 LAB L100.1820 35.1-43.9 fl High RDW SD 49.3 LAB L100.1900 150-450 K/mm3 Normal PLT 354 LAB L100.2000 6.2-12.0 fl Normal MPV 10.3 LAB L100.2100 47-70 % Normal NEUT% 65.2 LAB L100.2200 19-41 % Normal LY% 23.1 LAB L100.2300 0-10 % Normal MONO% 5.7 LAB L100.2400 0-5 % High EO% 5.4 LAB L100.2500 0-1 % Normal BASO% 0.4 LAB L100.2550 0.0-0.9 % Normal IM GRAN % 0.200 Result Comment: IG% - Immature Granulocytes (promyelocytes, myelocytes and metamyelocytes) > 1% indicates that a LEFT SHIFT is Present. LAB L100.2620 2.0-7.7 X10 3/uL High Absolute Neut 7.8 LAB L100.2720 0.83-4.51 X10 3/ul Normal Absolute Lymph 2.78 Performed By: #### L100.0100 #### [facility] [address] [place], [address] COMPREHENSIVE METABOLIC Collected: 09/15/2017 Status: F Source: [facility] 7:[address] [facility] REPOSITORY Order Comment: ROOM 500-2 TYPE CODE TESTS RESULT OUT OF RANGE REFERENCE UNITS LAB L501.0100 74-106 mg/dL High GLU 192 Result Comment: Fasting Glucose result greater than or equal to 126 mg/dL suggests DIABETES MELLITUS per A.D.A. criteria. Please note revised GLUCOSE reference range effective 2017. LAB L501.1000 7-18 mg/dL High BUN 30 LAB L501.1100 0.55-1.02 mg/dL High CREAT,SERUM 1.24 Result Comment: The validity of the calculated GFR AND GFRAA in patients over 70 years has not been determined. Clinical correlation is essential. LAB L501.1110 >60 mL/min Low EST GFR 47 Result Comment: Non- GFR Calc LAB L501.1115 >60 mL/min Low EST GFR - AA 56 Result Comment: GFR Calc LAB L501.1300 10-20 RATIO High BUN/CRE 24.2 LAB L501.1500 6.4-8.2 g/dL T Normal PROT 7.6 LAB L501.1800 3.2-5.0 g/dL Low ALB 2.8 LAB L501.1950 2.2-4.2 g/dL High GLOB 4.8 LAB L501.2000 0.9-2.4 RATIO Low A/G 0.6 LAB L501.2200 8.5-10.1 mg/dL CA Normal 9.1 LAB L501.4100 15-37 U/L Normal AST 16 LAB L501.4305 45-117 U/L Normal ALK P 78 LAB L501.4405 13-56 U/L Normal ALT 24 Result Comment: Please note revised ALT reference range effective 2017. LAB L501.4600 0.20-1.00 mg/dL Normal T BILI 0.60 LAB L501.5300 136-145 mmol/L Normal NA 141 LAB L501.5600 3.5-5.1 mmol/L Normal K 4.3 LAB L501.5900 98-107 mmol/L Normal CL 106 LAB L501.6100 21.0-32.0 mmol/L Normal CO2 25.0 LAB L501.6200 5-15 Normal GAP 10 Performed By: #### L500.4050 #### [facility] [address] [place], [address] HEMOGLOBIN A1C Collected: 09/15/2017 Status: F Source: [place] 7:[address] [facility] REPOSITORY Order Comment: ROOM 500-2 TYPE CODE TESTS RESULT OUT OF RANGE REFERENCE UNITS LAB L501.9985 4.2-6.3 % High HGB A1C 7.7 Performed By: #### L501.9985 #### [facility] [address] [place], [address] PROGRESS Observed: 09/13/2017 Status: COMPLETED Source: [place] 1:51 PM [facility] REPOSITORY HNO ID: [id number] Author: Balta Bailey Service: (none) Author Type: Physician Type: Progress Notes Filed: 09/14/2017 5:37 AM Note Text: Subjective: Patient presents to clinic c/o painful toenails. They state that the nails are especially painful with shoe gear and pressure. Patient states that nails 1-5 b/l are painful. Patient also presents for follow-up of callus of b/l heels. Patient admits to being diabetic and states that their blood sugar was 136 mg/dL this AM. No other pedal complaints at this time. Patient states no change in medications or medical history since last visit. Objective: Patient presents to clinic ambulating in slippers Vasc: DP and PT pulses are palapble bilateral. CFT is less than 5 seconds bilateral. Skin temperature is warm to cool proximal to distal bilateral. There is no edema or varicosities noted. Neuro: Protective sensation is decreased to the foot and toes when tested with the 5.07 SWM bilateral. Vibratory sensation is decreased at the hallux IPJ bilateral. The hallux is downgoing bilateral. Derm: Nails 1-5 b/l are painful, discolored-yellow, thick, crumbly, dystrophic and with subungal debris. Skin is dry and scaly bilateral. There are very superficial callus of b/l heels. No. ulcerations, scars, verruca or other lesions noted. Ortho: Muscle strength is 5/5 for all pedal groups tested. Ankle joint DF is decreased with the knee extended with no pain or crepitus noted. 1st MPJ ROM is decreased bilateral. Assessment: (B35.1) Onychomycosis (primary encounter diagnosis) (M79.675) Pain in toe of left foot (M79.674) Pain in toe of right foot (L85.9) Hyperkeratosis (E11.42) Diabetic polyneuropathy associated with type 2 diabetes mellitus (HCC) Plan: Patient was seen and evaluated. Nails 1-5 bilateral were debrided in length and thickness. Callus filed to b/l heels. Recommend continued use of lotion. Discussed diabetic shoes. Patient not interested at this time. If callus returns, she is to contact me. Patient was instructed on the continued importance of diabetic foot care along with proper diet and keeping their blood sugar under control to prevent complications. Patient is to RTC in 3-4 months. Balta Bailey DPM PROGRESS Observed: 09/13/2017 Status: COMPLETED Source: [place] 1:40 PM [facility] REPOSITORY HNO ID: [id number] Author: Brooklynn Pantoja RN Service: (none) Author Type: (none) Type: Progress Notes Filed: 09/14/2017 5:37 AM Note Text: Pt reports that her blood sugar was 136 this morning. CNOV Observed: 09/13/2017 Status: COMPLETED Source: [place] 1:20 PM [facility] REPOSITORY Office Visit (PODIWS) ALYSE ELLIS ([id number]) 1955 F [facility] Date Time Provider Department 09/13/17 1:20 PM BALTA BAILEY During your visit today, we recorded the following information about you: Brooklnyn Pantoja RN 09/14/2017 5:37 AM Signed Pt reports that her blood sugar was 136 this morning. GEOFFREY AlvaradoM 09/14/2017 5:37 AM Signed Subjective: Patient presents to clinic c/o painful toenails. They state that the nails are especially painful with shoe gear and pressure. Patient states that nails 1-5 b/l are painful. Patient also presents for follow-up of callus of b/l heels. Patient admits to being diabetic and states that their blood sugar was 136 mg/dL this AM. No other pedal complaints at this time. Patient states no change in medications or medical history since last visit. Objective: Patient presents to clinic ambulating in slippers Vasc: DP and PT pulses are palapble bilateral. CFT is less than 5 seconds bilateral. Skin temperature is warm to cool proximal to distal bilateral. There is no edema or varicosities noted. Neuro: Protective sensation is decreased to the foot and toes when tested with the 5.07 SWM bilateral. Vibratory sensation is decreased at the hallux IPJ bilateral. The hallux is downgoing bilateral. Derm: Nails 1-5 b/l are painful, discolored-yellow, thick, crumbly, dystrophic and with subungal debris. Skin is dry and scaly bilateral. There are very superficial callus of b/l heels. No. ulcerations, scars, verruca or other lesions noted. Ortho: Muscle strength is 5/5 for all pedal groups tested. Ankle joint DF is decreased with the knee extended with no pain or crepitus noted. 1st MPJ ROM is decreased bilateral. Assessment: (B35.1) Onychomycosis (primary encounter diagnosis) (M79.675) Pain in toe of left foot (M79.674) Pain in toe of right foot (L85.9) Hyperkeratosis (E11.42) Diabetic polyneuropathy associated with type 2 diabetes mellitus (HCC) Plan: Patient was seen and evaluated. Nails 1-5 bilateral were debrided in length and thickness. Callus filed to b/l heels. Recommend continued use of lotion. Discussed diabetic shoes. Patient not interested at this time. If callus returns, she is to contact me. Patient was instructed on the continued importance of diabetic foot care along with proper diet and keeping their blood sugar under control to prevent complications. Patient is to RTC in 3-4 months. VIRIDIANA Alvarado Ma 09/13/2017 2:05 PM Signed Diabetes Foot Care Instructions When you have diabetes, proper foot care is very important. Poor foot care may lead to amputation of a foot or leg. As a person with diabetes, you are more vulnerable to foot problems, because diabetes can damage your nerves and reduce blood flow to your feet. Here are some diabetes foot care tips to follow: Wash and Dry Your Feet Daily Use mild soaps Use warm water Pat your skin dry; do not rub. Thoroughly dry your feet. After washing, use lotion on your feet to prevent cracking. Do not put lotion between your toes. ? Examine Your Feet Each Day Check the tops and bottoms of your feet. Have someone else look at your feet if you cannot see them. Check for dry, cracked skin. Look for blisters, cuts, scratches, or other sores. Check for redness, increased warmth, or tenderness when touching any area of your feet. Check for ingrown toenails, corns, and calluses. If you get a blister or sore from your shoes, do not ANDquot;popANDquot; it. Apply a bandage and wear a different pair of shoes. Take Care of Your Toenails Cut toenails after bathing, when they are soft. Cut toenails straight across and smooth with a nail file. Avoid cutting into the corners of toes. Do not cut cuticles. If you have neuropathy (or decreased sensation in your feet) a manager fleet should always cut your toenails. ? Be Careful When Exercising Walk and exercise in comfortable shoes. Do not exercise when you have open sores on your feet. Protect Your Feet With Shoes and Socks Never go barefoot. Always protect your feet by wearing shoes or hard-soled slippers or footwear. Avoid shoes with high heels and pointed toes. Avoid shoes that expose your toes or heels (such as open-toed shoes or sandals). These types of shoes increase your risk for injury and potential infections. Try on new footwear with the type of socks you usually wear. Do not wear new shoes for more than an hour at a time. Change your socks daily. Look and feel inside your shoes before putting them on to make sure there are no foreign objects or rough areas. Avoid tight socks. Wear natural-fiber socks (cotton, wool, or a cotton-wool blend). Wear special shoes if your health care provider recommends them. Wear shoes/boots that will protect your feet from various weather conditions (cold, moisture, etc.). Make sure your shoes fit properly. If you have neuropathy (nerve damage), you may not notice that your shoes are too tight. Perform the ANDquot;footwear testANDquot; described below. Footwear Test Use this simple test to see if your shoes fit correctly: Stand on a piece of paper. (Make sure you are standing and not sitting, because your foot changes shape when you stand.) Trace the outline of your foot. Trace the outline of your shoe. Compare the tracings: Is the shoe too narrow? Is your foot crammed into the shoe? The shoe should be at least 1/2 inch longer than your longest toe and as wide as your foot. Proper Shoe Choices The following types of shoes are best for people with diabetes Closed toes and heels Leather uppers without a seam inside At least 1/2 inch extra space at the end of your longest toe Inside of shoe should be soft with no rough areas Outer sole should be made of stiff material Shoes should be at least as wide as your feet Tips for Foot Care in Diabetes Don't wait to treat a minor foot problem if you have diabetes. Follow your health care provider's guidelines and first aid guidelines. Report foot injuries and infections to your health care provider immediately. Check water temperature with your elbow, not your foot. Do not use a heating pad on your feet. Do not cross your legs. Do not self-treat your corns, calluses, or other foot problems. Go to your health care provider or manager fleet to treat these conditions. Referring Provider: BALTA BAILEY [[id number]] Allergies As of Date: 09/13/2017 Noted Allergy Reaction CLONIDINE 11/14/2008 ERYTHROMYCIN 08/28/2009 LATEX 01/14/2009 2 - Rash PENICILLINS 07/18/2008 2 - Rash Date Reviewed: 09/13/2017 Reviewed by: Brooklynn Pantoja RN - Fully Assessed Reason for Visit: Established Patient [175] Cmt: diabetic nail care Primary Visit Diagnosis:Onychomycosis [B35.1] Other Visit Diagnoses:Pain in toe of left foot [M79.675] Pain in toe of right foot [M79.674] Hyperkeratosis [L85.9] Diabetic polyneuropathy associated with type 2 diabetes mellitus (HCC) [E11.42] Prescriptions as of 09/13/2017 Sig: FUROSEMIDE 20 MG TABLET Take 1 tablet by mouth once d* Patient taking differently: Take 20 mg by mouth twice leesa* GUAIFENESIN ER 600 MG TABLET,* Take 1,200 mg by mouth every * KETOCONAZOLE 2 % SHAMPOO Apply to affected area once * AMMONIUM LACTATE 12 % LOTION Apply to affected area once * MENTHOL 0.44 %-ZINC OXIDE 20.* Apply to affected area as ne* CPAP NYSTATIN-TRIAMCINOLONE 100,00* Apply 1 application to affect* ESCITALOPRAM 10 MG TABLET Take 10 mg by mouth once krishna* OXYBUTYNIN CHLORIDE ER 10 MG * Take 10 mg by mouth once krishna* CALCIPOTRIENE 0.005 % SCALP S* For the scalp. Apply a small* LEVONORGESTREL 20 MCG/24 HR (* INSERTED IN THE OFFICE GLUCAGON EMERGENCY INJECTION 1 Vial by INJECTION(UNSPECIFI* INSULIN REGULAR HUMAN U-500C* Inject subcutaneously. 0.20 * IMODIUM A-D 2 MG TABLET Take two(2) tablets followed * MYLANTA 200 MG-200 MG-20 MG/5* as needed GLUCOPHAGE 1,000 MG TABLET Take one(1) tablet daily. TYLENOL 325 MG TABLET Take two(2) tablets every fou* EX-LAX MILK OF MAGNESIA 400 M* 30cc by mouth every day prn PLAVIX 75 MG TABLET Take one(1) tablet daily. LOPRESSOR 100 MG TABLET Take one(1) tablet twice krishna* LISINOPRIL 40 MG TABLET Take one(1) tablet two(2) jane* PRAVACHOL 40 MG TABLET Take one(1) tablet daily at b* NITROFURANTOIN 50 MG CAPSULE Take by mouth once daily. CLOBETASOL 0.05 % SCALP SOLUT* For scaling and redness of th* Medication notes this encounter NITROFURANTOIN 50 MG CAPSULE >> Brooklynn Pantoja RN 09/13/2017 1:39 PM >> BROOKLYNN PANTOJA RN WedSep 13, 2017 1:39 PM Patient not taking, please d/c. 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 Poor foot care may lead to amputation of a foot or leg. As a person with diabetes, you are more vulnerable to foot problems, because diabetes can damage your nerves and reduce blood flow to your feet. Here are some diabetes foot care tips to follow: Wash and Dry Your Feet Daily Use mild soaps Use warm water Pat your skin dry; do not rub. Thoroughly dry your feet. After washing, use lotion on your feet to prevent cracking. Do not put lotion between your toes. ? Examine Your Feet Each Day Check the tops and bottoms of your feet. Have someone else look at your feet if you cannot see them. Check for dry, cracked skin. Look for blisters, cuts, scratches, or other sores. Check for redness, increased warmth, or tenderness when touching any area of your feet. Check for ingrown toenails, corns, and calluses. If you get a blister or sore from your shoes, do not pop it. Apply a bandage and wear a different pair of shoes. Take Care of Your Toenails Cut toenails after bathing, when they are soft. Cut toenails straight across and smooth with a nail file. Avoid cutting into the corners of toes. Do not cut cuticles. If you have neuropathy (or decreased sensation in your feet) a manager fleet should always cut your toenails. ? Be Careful When Exercising Walk and exercise in comfortable shoes. Do not exercise when you have open sores on your feet. Protect Your Feet With Shoes and Socks Never go barefoot. Always protect your feet by wearing shoes or hard-soled slippers or footwear. Avoid shoes with high heels and pointed toes. Avoid shoes that expose your toes or heels (such as open- toed shoes or sandals). These types of shoes increase your risk for injury and potential infections. Try on new footwear with the type of socks you usually wear. Do not wear new shoes for more than an hour at a time. Change your socks daily. Look and feel inside your shoes before putting them on to make sure there are no foreign objects or rough areas. Avoid tight socks. Wear natural-fiber socks (cotton, wool, or a cotton-wool blend). Wear special shoes if your health care provider recommends them. Wear shoes/boots that will protect your feet from various weather conditions (cold, moisture, etc.). Make sure your shoes fit properly. If you have neuropathy (nerve damage), you may not notice that your shoes are too tight. Perform the footwear test described below. Footwear Test Use this simple test to see if your shoes fit correctly: Stand on a piece of paper. (Make sure you are standing and not sitting, because your foot changes shape when you stand.) Trace the outline of your foot. Trace the outline of your shoe. Compare the tracings: Is the shoe too narrow? Is your foot crammed into the shoe? The shoe should be at least 1/2 inch longer than your longest toe and as wide as your foot. Proper Shoe Choices The following types of shoes are best for people with diabetes Closed toes and heels Leather uppers without a seam inside At least 1/2 inch extra space at the end of your longest toe Inside of shoe should be soft with no rough areas Outer sole should be made of stiff material Shoes should be at least as wide as your feet Tips for Foot Care in Diabetes Don't wait to treat a minor foot problem if you have diabetes. Follow your health care provider's guidelines and first aid guidelines. Report foot injuries and infections to your health care provider immediately. Check water temperature with your elbow, not your foot. Do not use a heating pad on your feet. Do not cross your legs. Do not self-treat your corns, calluses, or other foot problems. Go to your health care provider or manager fleet to treat these conditions. Disposition: Return in about 3 months (around 12/14/2017) for diabetic nail care. Follow-up and Disposition History Recorded Encounter Status:Closed by BALTA BAILEY DPM on 09/14/17 ALLERGIES ALLERGIES DATE TYPE / CODE NAME / CODE REACTION SEVERITY SOURCE 11/30/2014 Drug Penicillins/[id number] Unknown Unknown [place] Allergy/416 476(RXNORM) [facility] 479946([facility] ED CT) Repository 11/30/2014 Drug erythromycin Unknown Unknown [place] Allergy/416 base/[id number](RXN [facility] 376373[facility]) Repository 11/30/2014 Drug clonidine/[id number] Unknown Unknown [place] Allergy/416 5(RXNORM) [facility] 469954([facility] ED CT) Repository 11/30/2014 Drug latex/[id number](RX Unknown Unknown [place] Allergy/416 NORM) [place] 831162([facility] ED CT) Repository 08/28/2009 DRUG/[id number] ERYTHROMYCIN [facility] 003(OMED [address] [place]) Repository 01/14/2009 DRUG LATEX RASH [facility] INGREDI/419 [place] 216914([facility] Repository ED CT) 11/14/2008 DRUG CLONIDINE [facility] INGREDI/419 [address] [place] 392330([facility] Repository ED CT) 07/18/2008 Drug PENICILLINS RASH [facility] Class/81597 [place] 1003([facility] Repository CT) NG/[id number] CLONIDINE [facility] 6([employer] CT) Repository NG/[id number] ERYTHROMYCIN [facility] 6(AcuFocusOMED [employer] System CT) Repository NG/[id number] LATEX [facility] 6([facility] CT) Repository NG/[id number] PENICILLINS [facility] 6([facility] CT) Repository ENCOUNTERS ENCOUNTERS ADMIT/DISCHARGE ACCOUNT NUMBER ADMITTING ENCOUNTER LOCATION SOURCE CLASS 07/26/2018 [id number] [facility] ding:OLS.WHL Repository [facility] 07/15/2018 [id number] [facility] ding:OLS.WHL Repository EAS 06/28/2018/06/29/20 [id number] Ambulatory [address] Repository 06/06/2018/06/07/[id number] Repository 05/05/2018 [id number] [facility] Er Repository 04/13/2018/04/15/20 [id number] Ambulatory [address] Repository 04/12/[id number] [facility] MEDICAL Repository CENTERBuildi ng:CAGWS 04/11/2018 [id number] [facility] ding:OLS.WHL Repository [facility] 03/23/2018 [id number] [facility] ding:OLS.WHL Repository [facility] 03/16/2018 [id number] [facility] ding:OLS.WHL Repository EAS 02/09/2018 [id number] [facility] ding:OLS.WHL Repository EAS 01/25/2018 [id number] [facility] ding:OLS.WHL Repository EAS 12/17/2017 [id number] [facility] ding:OLS.WHL Repository EAS 12/16/2017/12/22/19 [id number] Ambulatory [address] Repository 12/09/2017/12/10/19 [id number] Ambulatory [address] Repository 12/09/2017/04/06/20 [id number] Ambulatory [address] Repository 11/29/2017 [id number] [facility] ding:OLS.WHL Repository EAS 11/22/2017 [id number] [facility] ding:OLS.WHL Repository EAS 11/15/2017 [id number] [facility] ding:OLS.WHL Repository EAS 11/12/2017 [id number] [facility] ding:OLS.WHL Repository EAS 11/10/2017 [id number] [facility] ding:OLS.WHL Repository EAS 11/08/2017 [id number] [facility] ding:OLS.WHL Repository EAS 10/15/2017 [id number] [facility] ding:OLS.WHL Repository EAS 10/07/2017/10/08/19 [id number] Ambulatory [address] Repository 10/07/2017/10/08/19 [id number] Ambulatory [address] [facility] 09/15/2017 [id number] [facility] ding:OLS.WHL Repository EAS 09/13/2017/09/21/19 [id number] Ambulatory [address] Repository PAYERS PAYERS ENCOUNTER GUARANTOR PAYER SUBSCRIBER SOURCE 07/26/2018 [id number]:SELF PAY [facility] HEALTHY Number: Effective Repository [place] Date:2018-07-26 16799Hrx: (HP) 07/15/2018 Alysegokul Ramesh Primary Alyse Tran [id number] Insurance:MEDICARE TritschDOB: [facility] PART A [facility] [id number] [place] [address] HEALTHY Number: Repository [place], [place] [id number]: (624) Date:2018-07-15 [phone] (HP) 07/15/2018 Secondary Alyse Ameya [place] Insurance:MEDICAIDPol TritschDOB: Community icy Number: [id number] Hospital [id number] Repository Date:2018-07-15 07/15/2018 Tertiary NOT GIVENUNK [place] Insurance:SELF PAY [facility] Effective Rep[facility] Date:2018-07-15 04/12/2018 ALYSE RAMESH Primary ALYSE [facility] TRITSCHDOB: Insurance:[facility] MEDICAIDPolicy TRITSCHDOB: Repository [place] Number: [id number] [id number] [address]Sdt: (330) Date: [phone] () 04/11/2018 Alyse Ramesh Primary Alyse Mejiasoster [id number] Insurance:MEDICARE TritschDOB: [facility] PART A [facility] [id number] Hospital HEALTHY Number: Repository [place], [place] [id number]: (330) Date:2018-04-11 [phone] (HP) 04/11/2018 Secondary Alyse Tran Insurance:MEDICAIDPol TritschDOB: [facility] icy Number: [id number] Hospital [id number] Repository Date:2018-04-11 04/11/2018 Tertiary NOT GIVENUNK [place] Insurance:SELF PAY [facility] Number: Effective Repository Date:2018-04-11 03/23/2018 Alyse Ramesh Primary Alyse Mejiasoster [id number] Insurance:MEDICARE TritschDOB: [facility] PART A [facility] [id number] Hospital HEALTHY Number: Repository [place], [place] [id number] 09718Ydp: (330) Date:2018-03-23 [phone] (HP) 03/23/2018 Secondary Alyse Ramesh [place] Insurance:MEDICAIDPol TritschDOB: Community icy Number: [id number] Hospital [id number] Repository Date:2018-03-23 03/23/2018 Tertiary NOT GIVENUNK [place] Insurance:SELF PAY [facility] Number: Effective Repository Date:2018-03-23 03/16/2018 Alyse Ramesh Primary Alyse Tran [id number] Insurance:MEDICARE TritschDOB: Community [place] PART A [facility] [id number] Hospital HEALTHY Number: [place] [id number]: (330) Date:2018-03-1618 () 03/16/2018 Secondary Alyse Tran Insurance:MEDICAIDPol TritschDOB: Community icy Number: [id number] Hospital [id number] Repository Date:2018-03-16 03/16/2018 Tertiary NOT GIVENUNK [place] Insurance:SELF PAY [facility] Number: Effective Repository Date:2018-03-16 02/09/2018 Alyse Ramesh Primary Alyse Tran [id number] Insurance:MEDICARE TritschDOB: [facility] PART A [facility] [id number] Hospital HEALTHY Number: [place] [id number]: (330) Date:2018-02-0918 (HP) 02/09/2018 Secondary Alyse Tran Insurance:MEDICAIDPol TritschDOB: Community icy Number: [id number] Hospital [id number] Repository Date:2018-02-09 02/09/2018 Tertiary NOT GIVENUNK [place] Insurance:SELF PAY [facility] Number: Effective Repository Date:2018-02-09 01/25/2018 Alyse Ramesh Primary Alyse Tran [id number] Insurance:MEDICARE TritschDOB: Community [place] PART A [facility] [id number] Hospital HEALTHY Number: Rep[place] [id number]: (330) Date:2018-01-2518 (HP) 01/25/2018 Secondary Alyse Tran Insurance:MEDICAIDPol TritschDOB: Community icy Number: [id number] Hospital [id number] Repository Date:2018-01-25 01/25/2018 Tertiary NOT GIVENUNK [place] Insurance:SELF PAY [facility] Number: Effective Repository Date:2018-01-25 12/17/2017 Alyse Ramesh Primary Alyse Tran [id number] Insurance:MEDICARE TritschDOB: [facility] PART A [facility] [id number] Hospital HEALTHY Number: Repository [place], [place] [id number]: (330) Date:2017-12-17 [phone] () 12/17/2017 Secondary Alyse Tran Insurance:MEDICAIDPol TritschDOB: [facility] icy Number: [id number] Hospital [id number] Repository Date:2017-12-17 12/17/2017 Tertiary NOT GIVENUNK [place] Insurance:SELF PAY [facility] Number: Effective Repository Date:2017-12-17 11/29/2017 Alyse Ramesh Primary Alyse Tran [id number] Insurance:MEDICAIDPol TritschDOB: [facility] icy Number: [id number] Hospital HEALTHY [id number] Repository [place] Date:2017-11-29 [phone]: () 11/29/2017 Secondary NOT GIVENUNK [place] Insurance:SELF PAY [facility] Number: Effective Repository Date:2017-11-29 11/22/2017 Alyse Ramesh Primary Alyse Tran [id number] Insurance:MEDICARE TritschDOB: [facility] PART A [facility] [id number] Hospital HEALTHY Number: Repository [place], [place] [id number] 32872Qwc: (330) Date:2017-11-22 [phone] (HP) 11/22/2017 Secondary Alyse Tran Insurance:MEDICAIDPol TritschDOB: [facility] icy Number: [id number] Hospital [id number] Repository Date:2017-11-22 11/22/2017 Tertiary NOT GIVENUNK [place] Insurance:SELF PAY [facility] Number: Effective Repository Date:2017-11-22 11/15/2017 Alyse Ramesh Primary Alyse Tran [id number] Insurance:MEDICARE TritschDOB: Community [facility] PART A [facility] [id number] Hospital HEALTHY Number: Rep[place] [id number] 26[address]Mbr: (330) Date:2017-11-1518 () 11/15/2017 Secondary Alyse Tran Insurance:MEDICAIDPol TritschDOB: Community icy Number: [id number] Hospital [id number] Repository Date:2017-11-15 11/15/2017 Tertiary NOT GIVENUNK [place] Insurance:SELF PAY [facility] Number: Effective Repository Date:2017-11-15 11/12/2017 Alyse Ramesh Primary Alyse Tran [id number] Insurance:MEDICARE TritschDOB: Community [place] PART A [facility] [id number] Hospital HEALTHY Number: Rep[place] [id number]: (330) Date:2017-11-1218 () 11/12/2017 Secondary Alyse Tran Insurance:MEDICAIDPol TritschDOB: Community icy Number: [id number] Hospital [id number] Repository Date:2017-11-12 11/12/2017 Tertiary NOT GIVENUNK [place] Insurance:SELF PAY [facility]: Effective Repository Date:2017-11-12 11/10/2017 Alyse Ramesh Primary Alyse Tran [id number] Insurance:MEDICARE TritschDOB: [facility] PART A [facility] [id number] Hospital HEALTHY Number: [place] [id number] [address]Lku: (330) Date:2017-11-10 [phone] () 11/10/2017 Secondary Alyse Tran Insurance:MEDICAIDPol TritschDOB: Community icy Number: [id number] Hospital [id number] Repository Date:2017-11-10 11/10/2017 Tertiary NOT GIVENUNK [place] Insurance:SELF PAY [facility] Number: Effective Repository Date:2017-11-10 11/08/2017 Alyse Ramesh Primary Alyse Tran [id number] Insurance:MEDICAIDPol TritschDOB: [facility] icy Number: [id number] [facility] [id number] Repository [place] Date:2017-11-08 31264Uxj: (HP) 11/08/2017 Secondary NOT GIVENUNK [place] Insurance:SELF PAY [facility] Number: Effective Repository Date:2017-11-08 10/15/2017 Alyse Ramesh Primary Alyse Ramesh [place] [id number] Insurance:MEDICAIDPol TritschDOB: [facility] icy Number: [id number] Plains Surgical Center [id number] Repository [facility] [place] Date:2017-10-15 [id number]: (HP) 10/15/2017 Secondary NOT GIVENUNK [place] Insurance:SELF PAY [facility] Number: Effective Repository Date:2017-10-15 10/07/2017 ALYSE RAMESH Primary ALYSE [facility] TRITSCHDOB: Insurance:[facility] Number: TRITSCHDOB: Repository [place] [id number], [place] Date: [address]Mai: (HP) 10/07/2017 Secondary ALYSE E [facility] Insurance:[facility] MEDICAIDPolicy TRITSCHDOB: Repository Number: [id number] Date: 09/15/2017 Alyse Ramesh Primary Alyse Ramesh [place] [id number] Insurance:MEDICAIDPol TritschDOB: [facility] icy Number: [id number] Plains Surgical Center [id number] Repository [place] Date:2017-09-15 70120Puu: (HP) 09/15/2017 Secondary NOT GIVENUNK [place] Insurance:SELF PAY [facility] Number: Effective Repository Date:2017-09-15
== END ==
LOC: OLS.WHLEAS 22:30
PROVIDERS: Visit Provider Family Medicine
DX: E11.9 Type 2 diabetes mellitus without complications (principal); N31.8 Other neuromuscular dysfunction of bladder; I50.9 Heart failure, unspecified
CPT/HCPCS: 82043; 82570

== ENCOUNTER → 2018-08-08 04:00 | Outpatient (REF) | payer MEDICAID, SELFPAY ==
[2018-08-08 09:28] LABS: ALB/GLOB Ratio 0.5 RATIO (0.9-2.4); AST(SGOT) 9 U/L (15-37); Alanine Aminotransfer ALT/SGPT 13 U/L (13-56); Albumin, Serum 2.3 g/dL (3.2-5.0); Alkaline Phosphatase 81 U/L (45-117); Anion Gap 8 (5-15); BUN 49 mg/dL (7-18); BUN/Creat Ratio 29.9 RATIO (10-20); Calcium,Total 8.9 mg/dL (8.5-10.1); Chloride 111 mmol/L (98-107); Creatinine, Serum 1.64 mg/dL (0.55-1.02); EST Glomerular Filtration Rate 34 mL/min (>60); Est Glom Filt Rate - Afr Amer 41 mL/min (>60); Globulin 4.2 g/dL (2.2-4.2); Glucose 156 mg/dL (74-106); Potassium 4.5 mmol/L (3.5-5.1); Protein, Total 6.5 g/dL (6.4-8.2); Sodium Level 143 mmol/L (136-145)
== END ==
LOC: OLS.WHLEAS 04:00
PROVIDERS: Visit Provider Family Medicine
DX: I11.0 Hypertensive heart disease with heart failure (principal); I50.9 Heart failure, unspecified; E11.9 Type 2 diabetes mellitus without complications; E78.5 Hyperlipidemia, unspecified; E66.01 Morbid (severe) obesity due to excess calories; F01.51 Vascular dementia, unspecified severity, with behavioral disturbance
CPT/HCPCS: 36415; 80053

== ENCOUNTER → 2018-08-18 05:00 | Outpatient (REF) | payer MEDICAID, SELFPAY ==
[2018-08-18 07:28] LABS: Albumin, Serum 2.3 g/dL (3.2-5.0); BUN 40 mg/dL (7-18); BUN/Creat Ratio 25.2 RATIO (10-20); Calcium,Total 8.5 mg/dL (8.5-10.1); Chloride 112 mmol/L (98-107); Creatinine, Serum 1.59 mg/dL (0.55-1.02); EST Glomerular Filtration Rate 35 mL/min (>60); Est Glom Filt Rate - Afr Amer 42 mL/min (>60); Glucose 186 mg/dL (74-106); Phosphorus 3.9 mg/dL (2.5-4.9); Potassium 4.4 mmol/L (3.5-5.1); Sodium Level 142 mmol/L (136-145)
[2018-08-18 07:33] LABS: Hematocrit 38.1 % (37-47); Hemoglobin 11.8 g/dl (12.0-15.0); Mean Corpuscular Hgb 28.4 pg (27.0-32.0); Mean Corpuscular Volume 91.8 fL (81-99); Mean Platelet Vol. 10.2 fl (6.2-12.0); Platelet Count 362 K/mm3 (150-450); RBC Distribution Width CV 15.5 % (11.6-14.6); RBC Distribution Width SD 51.9 fl (35.1-43.9); Red Blood Count 4.15 M/mm3 (4.2-5.4); White Blood Count 9.6 K/mm3 (4.4-11.0)
[2018-08-18 07:42] LABS: Scan Indicated on CBC? Y/N NO
[2018-08-18 08:27] LABS: PTHIN 101.9 pg/mL (18.4-80.1)
== END ==
LOC: OLS.WHLEAS 05:00
PROVIDERS: Visit Provider Family Medicine
DX: N18.3 Chronic kidney disease, stage 3 (moderate) (principal)
CPT/HCPCS: 36415; 80069; 83970; 85027

== ENCOUNTER → 2018-09-14 05:31 | Outpatient (REF) | payer MEDICARE, MEDICAID, SELFPAY ==
[2018-09-14 07:11] LABS: Absolute Lymphocyte Count 2.48 X10^3/ul (0.83-4.51); Absolute Neutrophil Count 7.3 X10^3/uL (2.0-7.7); Basophil# 0.03 X10^3/uL; Basophil% 0.3 % (0-1); Eosinophil# 0.42 X10^3/uL; Eosinophils% 3.9 % (0-5); Hematocrit 36.1 % (37-47); Hemoglobin 11.1 g/dl (12.0-15.0); Lymphocyte # 2.48 X10^3/ul (4.0); Mean Corp Hgb Conc 30.7 g/gl (32-36); Mean Corpuscular Hgb 28.7 pg (27.0-32.0); Mean Corpuscular Volume 93.3 fL (81-99); Mean Platelet Vol. 10.1 fl (6.2-12.0); Monocyte# 0.58 X10^3/uL; Monocyte% 5.4 % (0-10); Neutrophil # 7.27 X10^3/uL (2.7-7.7); Neutrophil % 67.2 % (47-70); Platelet Count 342 K/mm3 (150-450); RBC Distribution Width CV 15.2 % (11.6-14.6); RBC Distribution Width SD 51.6 fl (35.1-43.9); Red Blood Count 3.87 M/mm3 (4.2-5.4); White Blood Count 10.8 K/mm3 (4.4-11.0)
[2018-09-14 07:22] LABS: ALB/GLOB Ratio 0.5 RATIO (0.9-2.4); AST(SGOT) 15 U/L (15-37); Alanine Aminotransfer ALT/SGPT 14 U/L (13-56); Albumin, Serum 2.1 g/dL (3.2-5.0); Alkaline Phosphatase 75 U/L (45-117); Anion Gap 8 (5-15); BUN 42 mg/dL (7-18); BUN/Creat Ratio 24.4 RATIO (10-20); Calcium,Total 8.5 mg/dL (8.5-10.1); Chloride 112 mmol/L (98-107); Creatinine, Serum 1.72 mg/dL (0.55-1.02); EST Glomerular Filtration Rate 32 mL/min (>60); Est Glom Filt Rate - Afr Amer 39 mL/min (>60); Glucose 131 mg/dL (74-106); Potassium 4.7 mmol/L (3.5-5.1); Protein, Total 6.1 g/dL (6.4-8.2); Sodium Level 144 mmol/L (136-145)
[2018-09-14 07:24] LABS: POSITIVE COUNT NO; POSITIVE DIFFERENTIAL NO; POSITIVE MORPHOLOGY NO
[2018-09-14 08:38] LABS: Hemoglobin A1c 7.4 % (4.2-6.3)
== END ==
LOC: OLS.WHLEAS 05:31
PROVIDERS: Visit Provider Family Medicine
DX: D64.9 Anemia, unspecified (principal); E11.9 Type 2 diabetes mellitus without complications; I10 Essential (primary) hypertension
CPT/HCPCS: 36415; 80053; 83036; 85025

== ENCOUNTER → 2018-10-18 05:00 | Outpatient (REF) | payer MEDICARE, MEDICAID, SELFPAY ==
[2018-10-18 08:22] LABS: BUN 45 mg/dL (7-18); Creatinine, Serum 1.59 mg/dL (0.55-1.02); Glucose 124 mg/dL (74-106)
[2018-10-18 08:23] LABS: Albumin, Serum 2.1 g/dL (3.2-5.0); BUN/Creat Ratio 28.3 RATIO (10-20); Calcium,Total 8.3 mg/dL (8.5-10.1); Chloride 109 mmol/L (98-107); EST Glomerular Filtration Rate 35 mL/min (>60); Est Glom Filt Rate - Afr Amer 42 mL/min (>60); Phosphorus 3.8 mg/dL (2.5-4.9); Potassium 4.2 mmol/L (3.5-5.1); Sodium Level 140 mmol/L (136-145)
== END ==
LOC: OLS.WHLEAS 05:00
PROVIDERS: Visit Provider Family Medicine
DX: E66.01 Morbid (severe) obesity due to excess calories (principal); E08.9 Diabetes mellitus due to underlying condition without complications
CPT/HCPCS: 36415; 80069

== ENCOUNTER → 2018-11-11 02:00 | Outpatient (REF) | payer MEDICARE, MEDICAID, SELFPAY | LOC: OLS.WHLEAS 02:00 | PROVIDERS: Visit Provider Family Medicine | DX: L03.90 Cellulitis, unspecified (principal) | CPT/HCPCS: 87070; 87077; 87186; 87205 ==

== ENCOUNTER → 2018-11-22 | Outpatient (REF) | payer MEDICARE, MEDICAID, SELFPAY ==
[2018-11-22 07:50] LABS: Albumin, Serum 2.4 g/dL (3.2-5.0); BUN 54 mg/dL (7-18); BUN/Creat Ratio 30.3 RATIO (10-20); Calcium,Total 8.8 mg/dL (8.5-10.1); Chloride 113 mmol/L (98-107); Creatinine, Serum 1.78 mg/dL (0.55-1.02); EST Glomerular Filtration Rate 31 mL/min (>60); Est Glom Filt Rate - Afr Amer 37 mL/min (>60); Glucose 105 mg/dL (74-106); Phosphorus 3.6 mg/dL (2.5-4.9); Potassium 4.3 mmol/L (3.5-5.1); Sodium Level 142 mmol/L (136-145)
== END | disposition home or self-care (01) ==
LOC: OLS.WHLEAS 05:00
PROVIDERS: Visit Provider Family Medicine
DX: I11.0 Hypertensive heart disease with heart failure (principal); I50.9 Heart failure, unspecified
CPT/HCPCS: 36415; 80069

== ENCOUNTER → 2018-12-20 | Outpatient (REF) | payer MEDICARE, MEDICAID, SELFPAY ==
[2018-12-20 07:11] LABS: Albumin, Serum 2.1 g/dL (3.2-5.0); BUN 47 mg/dL (7-18); BUN/Creat Ratio 28.1 RATIO (10-20); Calcium,Total 8.4 mg/dL (8.5-10.1); Chloride 111 mmol/L (98-107); Creatinine, Serum 1.67 mg/dL (0.55-1.02); EST Glomerular Filtration Rate 33 mL/min (>60); Est Glom Filt Rate - Afr Amer 40 mL/min (>60); Glucose 135 mg/dL (74-106); Phosphorus 3.7 mg/dL (2.5-4.9); Potassium 3.9 mmol/L (3.5-5.1); Sodium Level 140 mmol/L (136-145)
== END | disposition home or self-care (01) ==
LOC: OLS.WHLEAS 05:00
PROVIDERS: Visit Provider Family Medicine
DX: I10 Essential (primary) hypertension (principal); E78.5 Hyperlipidemia, unspecified; E11.9 Type 2 diabetes mellitus without complications
CPT/HCPCS: 36415; 80069

== ENCOUNTER → 2018-12-30 | Outpatient (REF) | payer MEDICARE, MEDICAID, SELFPAY ==
[2018-12-30 08:07] LABS: Anion Gap 8 (5-15); BUN 41 mg/dL (7-18); BUN/Creat Ratio 24.1 RATIO (10-20); Calcium,Total 8.9 mg/dL (8.5-10.1); Chloride 111 mmol/L (98-107); EST Glomerular Filtration Rate 32 mL/min (>60); Est Glom Filt Rate - Afr Amer 39 mL/min (>60); Glucose 107 mg/dL (74-106); Sodium Level 144 mmol/L (136-145)
== END | disposition home or self-care (01) ==
LOC: OLS.WHLEAS 05:30
PROVIDERS: Visit Provider Family Medicine
DX: E11.9 Type 2 diabetes mellitus without complications (principal); I10 Essential (primary) hypertension; E78.5 Hyperlipidemia, unspecified
CPT/HCPCS: 36415; 80048

== ENCOUNTER → 2019-01-05 | Outpatient (REF) | payer MEDICARE, MEDICAID, SELFPAY ==
[2019-01-03 14:27] VITALS: BMI 62.8
[2019-01-05 08:55] LABS: AST(SGOT) 11 U/L (15-37); Alanine Aminotransfer ALT/SGPT 14 U/L (13-56); Albumin, Serum 2.1 g/dL (3.2-5.0); Alkaline Phosphatase 75 U/L (45-117); Bilirubin, Direct 0.07 mg/dL (0.00-0.30); Cholesterol 164 mg/dL (200); Globulin 4.3 g/dL (2.2-4.2); High Density Lipoprotein 39 mg/dL; Protein, Total 6.4 g/dL (6.4-8.2); Triglycerides 214 mg/dL; Very Low Density Lipoprotein 43 mg/dL (5-40)
== END | disposition home or self-care (01) ==
LOC: OLS.WHLEAS 06:31
PROVIDERS: Visit Provider Family Medicine
DX: I50.9 Heart failure, unspecified (principal); E11.9 Type 2 diabetes mellitus without complications; E78.5 Hyperlipidemia, unspecified
CPT/HCPCS: 36415; 80061; 80076

== ENCOUNTER → 2019-01-17 05:00 | Outpatient (REF) | payer MEDICAID, SELFPAY ==
[2019-01-03 14:27] VITALS: BMI 62.8
[2019-01-17 07:23] LABS: Albumin, Serum 2.1 g/dL (3.2-5.0); BUN 42 mg/dL (7-18); BUN/Creat Ratio 23.2 RATIO (10-20); Calcium,Total 8.7 mg/dL (8.5-10.1); Chloride 111 mmol/L (98-107); Creatinine, Serum 1.81 mg/dL (0.55-1.02); EST Glomerular Filtration Rate 30 mL/min (>60); Est Glom Filt Rate - Afr Amer 36 mL/min (>60); Glucose 152 mg/dL (74-106); Phosphorus 3.4 mg/dL (2.5-4.9); Potassium 3.9 mmol/L (3.5-5.1); Sodium Level 140 mmol/L (136-145)
== END ==
LOC: OLS.WHLEAS 05:00
PROVIDERS: Visit Provider Family Medicine
DX: I10 Essential (primary) hypertension (principal); E78.5 Hyperlipidemia, unspecified; E11.9 Type 2 diabetes mellitus without complications
CPT/HCPCS: 36415; 80069

== ENCOUNTER → 2019-01-20 | Outpatient (CLI) | payer MEDICAID, SELFPAY ==
[2019-01-03 14:27] VITALS: BMI 62.8
== END | disposition home or self-care (01) ==
PROVIDERS: Family Provider Family Medicine; PCP Family Medicine; Referring Provider Internal Medicine Cardiovascular Disease; Visit Provider Internal Medicine Cardiovascular Disease
DX: E78.5 Hyperlipidemia, unspecified (principal); G47.33 Obstructive sleep apnea (adult) (pediatric); R94.31 Abnormal electrocardiogram [ECG] [EKG]; I11.0 Hypertensive heart disease with heart failure; I50.32 Chronic diastolic (congestive) heart failure
CPT/HCPCS: J7040; Q9957; A4216

== ENCOUNTER → 2019-02-03 | Outpatient (CLI) | payer MEDICAID, SELFPAY ==
[2019-01-03 14:27] VITALS: BMI 62.8
== END | disposition home or self-care (01) ==
LOC: CVS 06:59
PROVIDERS: Family Provider Family Medicine; PCP Family Medicine; Referring Provider Nurse Practitioner Family; Visit Provider Nurse Practitioner Family
DX: Z01.810 Encounter for preprocedural cardiovascular examination (principal); I50.32 Chronic diastolic (congestive) heart failure; R94.31 Abnormal electrocardiogram [ECG] [EKG]
CPT/HCPCS: A4216

== ENCOUNTER → 2019-02-07 13:00 | Outpatient (REF) | payer MEDICARE, MEDICAID, SELFPAY ==
[2019-01-03 14:27] VITALS: BMI 62.8
== END ==
LOC: OLS.WHLEAS 13:00
PROVIDERS: Visit Provider Family Medicine
DX: F01.51 Vascular dementia, unspecified severity, with behavioral disturbance (principal); E11.22 Type 2 diabetes mellitus with diabetic chronic kidney disease; N18.3 Chronic kidney disease, stage 3 (moderate); E11.21 Type 2 diabetes mellitus with diabetic nephropathy; L03.115 Cellulitis of right lower limb
CPT/HCPCS: 87070; 87077; 87186; 87205

== ENCOUNTER → 2019-02-14 05:35 | Outpatient (REF) | payer MEDICARE, MEDICAID, SELFPAY ==
[2019-01-03 14:27] VITALS: BMI 62.8
[2019-02-14 08:00] LABS: Albumin, Serum 1.9 g/dL (3.2-5.0); BUN 49 mg/dL (7-18); BUN/Creat Ratio 24.5 RATIO (10-20); Calcium,Total 8.2 mg/dL (8.5-10.1); Chloride 115 mmol/L (98-107); EST Glomerular Filtration Rate 27 mL/min (>60); Est Glom Filt Rate - Afr Amer 32 mL/min (>60); Glucose 105 mg/dL (74-106); Phosphorus 4.4 mg/dL (2.5-4.9); Potassium 3.9 mmol/L (3.5-5.1); Sodium Level 144 mmol/L (136-145)
== END ==
LOC: OLS.WHLEAS 05:35
PROVIDERS: Visit Provider Family Medicine
DX: F01.51 Vascular dementia, unspecified severity, with behavioral disturbance (principal); E11.22 Type 2 diabetes mellitus with diabetic chronic kidney disease; N18.3 Chronic kidney disease, stage 3 (moderate); E11.21 Type 2 diabetes mellitus with diabetic nephropathy; E66.01 Morbid (severe) obesity due to excess calories
CPT/HCPCS: 36415; 80069

== ENCOUNTER → 2019-02-17 05:30 | Outpatient (REF) | payer MEDICARE, MEDICAID, SELFPAY ==
[2019-01-03 14:27] VITALS: BMI 62.8
[2019-02-17 07:28] LABS: Albumin, Serum 2.1 g/dL (3.2-5.0); BUN 49 mg/dL (7-18); BUN/Creat Ratio 25.9 RATIO (10-20); Calcium,Total 8.6 mg/dL (8.5-10.1); Chloride 111 mmol/L (98-107); Creatinine, Serum 1.89 mg/dL (0.55-1.02); EST Glomerular Filtration Rate 29 mL/min (>60); Est Glom Filt Rate - Afr Amer 35 mL/min (>60); Glucose 171 mg/dL (74-106); Phosphorus 3.7 mg/dL (2.5-4.9); Prealbumin 28.7 mg/dL (20.0-40.0); Sodium Level 142 mmol/L (136-145)
== END ==
LOC: OLS.WHLEAS 05:30
PROVIDERS: Visit Provider Family Medicine
DX: F01.51 Vascular dementia, unspecified severity, with behavioral disturbance (principal); E11.22 Type 2 diabetes mellitus with diabetic chronic kidney disease; N18.3 Chronic kidney disease, stage 3 (moderate); E11.21 Type 2 diabetes mellitus with diabetic nephropathy
CPT/HCPCS: 36415; 80069; 84134

== ENCOUNTER → 2019-02-21 07:20 | Outpatient (REF) | payer MEDICARE, MEDICAID, SELFPAY ==
[2019-01-03 14:27] VITALS: BMI 62.8
[2019-02-21 08:17] LABS: Albumin, Serum 2.1 g/dL (3.2-5.0); BUN 47 mg/dL (7-18); BUN/Creat Ratio 28.7 RATIO (10-20); Calcium,Total 8.5 mg/dL (8.5-10.1); Chloride 114 mmol/L (98-107); Creatinine, Serum 1.64 mg/dL (0.55-1.02); EST Glomerular Filtration Rate 34 mL/min (>60); Est Glom Filt Rate - Afr Amer 41 mL/min (>60); Glucose 131 mg/dL (74-106); Phosphorus 4.2 mg/dL (2.5-4.9); Sodium Level 142 mmol/L (136-145)
== END ==
LOC: OLS.WHLEAS 07:20
PROVIDERS: Visit Provider Family Medicine
DX: F01.51 Vascular dementia, unspecified severity, with behavioral disturbance (principal); E11.22 Type 2 diabetes mellitus with diabetic chronic kidney disease; N18.3 Chronic kidney disease, stage 3 (moderate); E11.21 Type 2 diabetes mellitus with diabetic nephropathy; E66.01 Morbid (severe) obesity due to excess calories
CPT/HCPCS: 36415; 80069

== ENCOUNTER → 2019-03-10 | Outpatient (CLI) | payer MEDICAID, SELFPAY ==
[2019-01-03 14:27] VITALS: BMI 62.8
--- NOTE | 2019-03-10 09:42 | STEWCON_ITS ---
Reason For Study: CHF Stress Results Protocol: Dobutamine with definity Maximum Predicted HR: 157 bpm Target HR: 133 bpm % Maximum Predicted HR: 85 % DurationHeart Rate Stage (mm:ss) (bpm) BP Dose Comment BASELINE 74 139/69 2 CC DEFINITY STAGE 1 3:20 86 136/6410.001 CC DEFINITY STAGE 2 3:00 102 133/5620.00 STAGE 3 3:00 118 106/4830.00 STAGE 4 4:05 133 100/5640.000.25 MG ATROPINE GIVEN/ 1 CC DEFINITY RECOVERY 99 127/53 2 CC DEFINITY Stress Duration: 13:25 mm:ss Maximum Stress HR: 133 bpm Baseline Echocardiogram Findings The estimated ejection fraction is 65 %. Stress Echo Wall motion Data Resting WM Intermediate WM Stress WM Resting Wall Motion Wall Motion Stress No regional wall motion No regional wall motion abnormalities noted. abnormalities noted. EKG Data The baseline ECG displays normal sinus rhythm. The patient was titrated from 10 mcg to a maximum of 40 mcg of dobutamine during the stress. The maximum heart rate attained was 164 beats per minute. This was 104% of maximum predicted heart rate. During dobutamine infusion, there were no ST or T wave changes noted to suggest ischemia. No clinical angina was noted. Interpretation Summary The estimated ejection fraction is 65 %. Normal, adequate, dobutamine echocardiogram. Negative for ischemia by EKG and echocardiographic criteria. No anginal symptoms noted. Rare PACs noted. Appropriate blood pressure response to dobutamine. Final LVEF is 75%. Test terminated due to the attainment target heart rate and dyspnea. Decreased sensitivity due to poor echo windows requiring Definity agent. No complications. The study was technically difficult. Contrast injection was performed. Ordering Physician: Patricio Devlin Referring Physician: Patricio Devlin Performed By: Yesy Vazquez, GOYO, RVT
== END | disposition home or self-care (01) ==
LOC: CVS 09:39
PROVIDERS: Family Provider Family Medicine; PCP Family Medicine; Referring Provider Internal Medicine Cardiovascular Disease; Visit Provider Internal Medicine Cardiovascular Disease
DX: I50.32 Chronic diastolic (congestive) heart failure (principal); R94.31 Abnormal electrocardiogram [ECG] [EKG]; Z86.73 Personal history of transient ischemic attack (TIA), and cerebral infarction without residual deficits
CPT/HCPCS: 93017; 93350; J7040; Q9957; A4216; C8928

== ENCOUNTER → 2019-03-12 08:15 | Outpatient (REF) | payer MEDICARE, MEDICAID, SELFPAY ==
[2019-01-03 14:27] VITALS: BMI 62.8
[2019-03-12 11:39] LABS: Color, Urine Yellow (Yellow); Glucose, Dipstick 100 mg/dl (Normal); Ketone-Dipstick Negative (Negative); Leukocyte Esterase-Dipstick 500 /ul (Negative); Nitrite-Dipstick Positive (Negative); Occult Blood-Urine 25 /ul (Negative); Protein-Dipstick 500 mg/dl (Negative); Specific Gravity, Urine 1.015 (1.002-1.030); Urine Bilirubin Dipstick Negative (Negative); Urine Clarity Cloudy (Clear); Urine Urobilinogen 1 mg/dl (Normal)
== END ==
LOC: OLS.WHLTSB 08:15
PROVIDERS: Visit Provider Family Medicine
DX: N39.0 Urinary tract infection, site not specified (principal); F01.51 Vascular dementia, unspecified severity, with behavioral disturbance; E11.22 Type 2 diabetes mellitus with diabetic chronic kidney disease; N18.3 Chronic kidney disease, stage 3 (moderate); E11.21 Type 2 diabetes mellitus with diabetic nephropathy
CPT/HCPCS: 81002; 87077; 87086; 87088; 87186

== ENCOUNTER 2019-03-17 10:14 | Emergency (ER) | payer MEDICAID, SELFPAY ==
[2019-01-03 14:27] VITALS: BMI 62.8
[2019-03-17 10:17] VITALS: BP 144/57; PULSE 74; RESP 17; TEMP 36.5; O2SAT 98; BMI 68.5
[2019-03-17 10:22] VITALS: O2SAT 97
[2019-03-17 11:32] VITALS: BP 144/67; PULSE 73; RESP 21; O2SAT 94
[2019-03-17 12:00] VITALS: BP 133/56; PULSE 74; RESP 22; O2SAT 92
--- NOTE | 2019-03-17 12:36 | RAD_ITS ---
STUDY: X-RAY - PELVIS AND BILATERAL HIPS REASON FOR EXAM: Female, 64 years old. Pain following a fall. TECHNIQUE: AP view of the pelvis.? 2 views of the right hip, and 2 views of the left hip were obtained. COMPARISON: None. FINDINGS: There is a non-specific bowel gas pattern. Normal visualized soft tissue structures. Normal bilateral iliac wings, sacroiliac joints and visualized sacrum. Normal bilateral superior and inferior pubic rami. Normal pubic symphysis. Normal bilateral ischial tuberosities. Normal visualized right femoral head. There is osteoarthritic spur formation of the right acetabular rim. There is moderate articular joint space narrowing of the right hip. Normal visualized left femoral head. There is osteoarthritic spur formation of the left acetabular rim. There is moderate articular joint space narrowing of the left hip. RAD/Hips B/L min 2 views w/ Pelvis IMPRESSION: Degenerative changes of both hip joints. Electronically Signed: Javier Oh, at 13:19 EDT , Service support ,
--- NOTE | 2019-03-17 12:36 | RAD_ITS ---
STUDY: X-RAY CHEST REASON FOR EXAM: Female, 64 years old. Pain following a fall. TECHNIQUE: Single AP portable view of the chest. COMPARISON: Comparison is made with prior study dated November 30, 2014. FINDINGS: EKG electrodes are seen. Surgical clips are seen overlying the left lower lobe. No acute abnormality is seen. There is no demonstrated pleural abnormality. There is borderline cardiomegaly. Normal mediastinum and clyde. Normal visualized pulmonary arteries. Normal visualized aortic arch and descending thoracic aorta. Normal visualized thoracic spine. Normal visualized ribs, clavicles, and shoulders. There is no demonstrated abnormality of the visualized soft tissue structures of the upper abdomen. RAD/Chest 1 View IMPRESSION: Borderline cardiomegaly. Electronically Signed: Javier Oh, at 13:18 EDT , Service support ,
--- NOTE | 2019-03-17 12:36 | RAD_ITS ---
STUDY: X-RAY - RIGHT KNEE REASON FOR EXAM: Female, 64 years old. Pain following a fall. TECHNIQUE: 2 view(s) of the knee. COMPARISON: None. FINDINGS: Normal visualized distal femur. Normal visualized proximal tibia and fibula. Normal proximal tibiofibular articulation. There is moderate degenerative arthrosis of the medial femorotibial compartment with moderate joint space narrowing. Normal lateral femorotibial compartment. Normal patellofemoral articulation. Diffuse soft tissue swelling. 3 soft tissue nodules are seen in the posterior aspect of knee joint as well as a single nodule is seen in the pretibial space. RAD/Knee 1 or 2 Views IMPRESSION: Degenerative arthrosis. Diffuse soft tissue swelling. Electronically Signed: Javier Oh, at 13:20 EDT , Service support ,
--- NOTE | 2019-03-17 12:36 | RAD_ITS ---
STUDY: X-RAY - LEFT KNEE REASON FOR EXAM: Female, 64 years old. Pain following a fall. TECHNIQUE: 2 view(s) of the knee. COMPARISON: None. FINDINGS: Normal visualized distal femur. Normal visualized proximal tibia and fibula. Normal proximal tibiofibular articulation. There is moderate degenerative arthrosis of the medial femorotibial compartment with moderate joint space narrowing. Normal lateral femorotibial compartment. Normal patellofemoral articulation. Diffuse soft tissue swelling. RAD/Knee 1 or 2 Views IMPRESSION: Diffuse soft tissue swelling. Electronically Signed: Javier Oh, at 13:22 EDT , Service support ,
--- NOTE | 2019-03-17 13:47 | ED.RN ---
PAMELL[facility] FROM [facility] CALLED IN, UPDATE GIVEN.
--- NOTE | 2019-03-17 13:52 | ED.DCSUM_ITS ---
- ER Visit Summary Date of Service: 03/17/19 Chief Complaint: Fall History of Present Illness: The patient is a 64 F who presents with a fall that occurred today. Patient states she was attempting to transfer from her wheelchair to her bed when she slid down and fell. Patient complains of pain in both of her hips and both of her knees. Patient denies any loss of consciousness. Patient states she did hit the front of her head on the bed rail. Patient denies any paresthesias or weakness. Daughter states the patient has fallen 3 times at the [facility] within the last month. Daughter states patient had a recent urinalysis and urine culture. Patient was recently started on Pyridium but was not started on an antibiotic with the culture pending. Physical Examination: Vital signs are stable. Patient is afebrile. Patient is in no acute distress. Oral mucosa is pink and moist. Neck is supple. Trachea is midline. There is no JVD noted. Heart was regular rate and rhythm. Lungs are clear and equal bilaterally. There is tenderness over the sternum. There is no bony crepitance or step-off. There is no edema or ecchymosis. Abdomen is soft and nontender. Musculoskeletal exam reveals tenderness over the bilateral hips and bilateral knees. Range of motion was limited secondary to pain. Skin is warm and dry. 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 Patient is also being treated for fungal infection on her abdomen. There is some eryt alvaro over this area. Test Results: Chest x-ray was obtained and does not show any acute process. X- rays of the bilateral hips were obtained. There is no acute fracture. X-rays of the bilateral knees were obtained. There are degenerative changes but no acute fracture. These were interpreted by the radiologist myself. Emergency Department Course and Treatment: Urinalysis results were reviewed. Urine culture showed Klebsiella in the urine which was sensitive to Bactrim. Patient was started on Bactrim. Patient was instructed to follow-up with her primary care physician in 5 to 7 days. Patient will be discharged back to the [facility] care [facility]. Patient and family understood and were agreeable with the plan. All questions were answered. Disposition: Discharge to [facility] Impression: 1. Multiple contusions 2. Urinary tract infection This note was generated with Access Information Managementation software. It may contain incorrect words, spelling, and punctuation that were not noted in review of the chart prior to signing ED Disposition - Plan for ED Patient: Disposition: [facility] Diagnosis: Multiple contusions, Urinary tract infection Instructions: FALL, Mechanical, Bladder Infection, Female (Adult) Prescriptions: Smz/Tmp Ds [Bactrim Ds] 1 tab PO BID #14 tab Prescription Printed Referrals: Adrian Jimenez MD [Primary Care Provider] -
--- NOTE | 2019-03-17 14:21 | NURSING ---
CALLED [facility] FOR TRANSPORT. ETA IS 2000
[2019-03-17] MEDS: Smz/Tmp Ds Tablet 1 TABLET PO (14:51)
[2019-03-17 15:00] VITALS: BP 135/54; PULSE 80; RESP 20; O2SAT 93
--- NOTE | 2019-03-17 15:03 | ED.RN ---
CALLED BRANDO AT [facility] TO UPDATE ON THE WAIT FOR TRANSPORT ON PATIENT NOT BEING UNTIL 1999. CLARIFICATION ON LUNCH TIME MEDICATIONS. FAMILY BRINGS PT LUNCH.
[2019-03-17 15:41] LABS: Bedside Glucose 157 mg/dL (70-110)
[2019-03-17] MEDS: Phenazopyridine 95 MG Tablet PO (17:38)
[2019-03-17 19:26] LABS: Bedside Glucose 176 mg/dL (70-110)
[2019-03-17] MEDS: Acetaminophen 500 MG Tablet 1000 MG PO (20:00)
--- NOTE | 2019-03-17 20:16 | NURSING ---
CALLED [facility] [place] AT 2015 AND WAS TOLD [facility] WAS GETTING THE LARGER COT FORM [place] AND WILL BE ANOTHER 45 MINUTES
== END 2019-03-17 20:50 | disposition skilled nursing facility (03) ==
PROVIDERS: Emergency Provider Emergency Medicine; Family Provider Family Medicine; PCP Family Medicine
DX: T14.8XXA Other injury of unspecified body region, initial encounter (principal); N39.0 Urinary tract infection, site not specified; B96.1 Klebsiella pneumoniae [K. pneumoniae] as the cause of diseases classified elsewhere; M25.551 Pain in right hip; M25.552 Pain in left hip; M25.561 Pain in right knee; M25.562 Pain in left knee; W19.XXXA Unspecified fall, initial encounter; Z91.81 History of falling; Y93.9 Activity, unspecified; Y92.9 Unspecified place or not applicable; L97.919 Non-pressure chronic ulcer of unspecified part of right lower leg with unspecified severity; B48.8 Other specified mycoses; E66.9 Obesity, unspecified; I50.9 Heart failure, unspecified; E11.9 Type 2 diabetes mellitus without complications; F01.50 Vascular dementia, unspecified severity, without behavioral disturbance, psychotic disturbance, mood disturbance, and anxiety; Z86.73 Personal history of transient ischemic attack (TIA), and cerebral infarction without residual deficits; Z79.4 Long term (current) use of insulin; Z79.899 Other long term (current) drug therapy
CPT/HCPCS: 71045; 73521; 73560; 82962; 99284